=== PATIENT | female | born 1945 | race Caucasian/White ===

== ENCOUNTER → 2016-12-02 | Day surgery (SDC) | payer OTHER ==
[2016-11-27 09:50] VITALS: Ht 170.2 cm; Wt 95.5 kg
[~2016-12-02] VITALS: Ht 170.2 cm; Wt 95.5 kg
[~2016-12-02] MED LIST: ATR25 PO; CALC-393 PO; CALC500C70 PO; CEPH500C PO; CHOL1000 PO; CHOL20009 PO; CLON0.5T3 PO; COEN400C5 PO; GABA-112 PO; LIDOCAINE HCL 2% 2 ML VIAL (20MG/ML) ONE; LPT10 PO; MAGN400T6 PO; MAGN500C PO; MECL1TAB42 PO; MELO7.5T5 PO; MIDAZOLAM HCL 1 MG/ML 2ML VIAL ONE; OMEG100046 PO; OMEG10007 PO; ONDANSETRON INJ 2 MG/ML 2 ML VIAL ONE; PANT40TA PO; POTA1TAB PO; PRAV20TA PO; PREG1CAP36 PO; PRLSR20 PO; PROPOFOL IV EMULSION 10 MG/ML 20 ML VIAL IV ONE; TRAM-10 PO; TRAZ50TA35 PO; VITAMIN B PO
--- NOTE | 2016-12-02 16:02 | Endo History and Physical ---
History & Physical Date of Service: Dec 02, 2016. Chief Complaint: Gastritis Referring Physician: Dr. Pugh History of Present Illness 71 yo CF who presents for EGD secondary to gastritis. Past Medical History Arthritis, Reflux, PR Past Surgical History Hx Cardiac Surgery: No Hx Internal Defibrillator: No Hx Pacemaker: No Hx Abdominal Surgery: Yes (TUBAL LIGATION) Hx of Implantable Prosthesis: No Hx Post-Op Nausea and Vomiting: No Hx Cancer Surgery: No Hx Thoracic Surgery: No Hx Orthopedic: No Hx Urinary Tract Surgery: No Family History Colon CA, Polyp Social History Smoking Status: Former Smoker Hx Substance Use: No Hx Alcohol Use: No Allergies Coded Allergies: Codeine (Verified Allergy, Unknown, RASH, 11/27/16) Morphine (Verified Allergy, Unknown, UNSURE OF REACTION, 11/27/16) Statins (Verified Allergy, Unknown, MUSCLE ACHES, 12/02/16) Sulfa Antibiotics (Verified Allergy, Unknown, HIVES, 11/27/16) Wasp (Verified Allergy, Unknown, HIVES, 11/27/16) WASP AND HORNETS Current Medications Reported Home Medications Medications Dose Route/Sig Max Daily Dose Days Date Category Klonopin (Clonazepam) 0.5 Mg Tab 0.5 Mg PO HS PRN 11/27/16 Reported Trazodone (Trazodone HCl) 50 Mg Tab 50 Mg PO HS PRN 11/27/16 Reported Ultram (Tramadol HCl) 50 Mg Tab 50 Mg PO Q8H PRN 11/27/16 Reported Mobic (Meloxicam) 7.5 Mg Tab 7.5 Mg PO HS 11/27/16 Reported Prilosec (Omeprazole) 20 Mg Capcr 20 Mg PO BID 11/27/16 Reported Coq10 (Coenzyme Q10 (Ubidecarenone)) 400 Mg Cap 1 Cap PO HS 11/27/16 Reported Vitamin D (Cholecalciferol) 2,000 Unit Tab 1 Tab PO HS 11/27/16 Reported Os-Bernardo 500 Plus D (Calcium/Vitamin D) Tab 1 Tab PO HS 11/27/16 Reported [place]-3 (Fish Oil) 1 Ea Cap 1 Cap PO HS 11/27/16 Reported [Vitamin B] 100 Mg PO QAM 11/27/16 Reported Mag-Ox (Magnesium Oxide) 400 Mg Tab 400 Mg PO BID 11/27/16 Reported Pravachol (Pravastatin Sodium) 20 Mg Tab 20 Mg PO QAM 11/27/16 Reported Potassium Gluconate 595 Mg Tab 1 Tab PO QAM 10/03/15 Reported Vital Signs Weight (Kilograms): 95.45 Height (Feet): 5 Height (Inches): 7 Date Time Temp Pulse Resp B/P Pulse Ox O2 Delivery O2 Flow Rate FiO2 12/02/16 15:10 36.5 72 20 171/91 98 Room Air Physical Exam General Appearance: WD/WN, no apparent distress Respiratory/Chest: Auscultation: breath sounds normal Cardiovascular: Heart Auscultation: RRR Abdomen: Bowel Sounds: normal Inspection & Palpation: soft, non-distended, no tenderness, guarding & rebound Assessment and Plan Assessment: 71 yo CF who presents for EGD secondary to gastritis. Plan: Proceed with EGD.
--- NOTE | 2016-12-02 16:11 | Discharge Instructions ---
Endoscopy Patient Instructions Date / Procedure(s) Performed Dec 02, 2016. EGD Allergy Information Coded Allergies: Codeine (Verified Allergy, Unknown, RASH, 11/27/16) Morphine (Verified Allergy, Unknown, UNSURE OF REACTION, 11/27/16) Statins (Verified Allergy, Unknown, MUSCLE ACHES, 12/02/16) Sulfa Antibiotics (Verified Allergy, Unknown, HIVES, 11/27/16) Wasp (Verified Allergy, Unknown, HIVES, 11/27/16) WASP AND HORNETS Discharge Date / Findings Dec 02, 2016. Gastritis s/p biopsies Gastric polyps Hiatal hernia Medication Instructions OK to resume all medications today as prescribed. Reported Home Medications Medications Dose Route/Sig Max Daily Dose Days Date Category Klonopin (Clonazepam) 0.5 Mg Tab 0.5 Mg PO HS PRN 11/27/16 Reported Trazodone (Trazodone HCl) 50 Mg Tab 50 Mg PO HS PRN 11/27/16 Reported Ultram (Tramadol HCl) 50 Mg Tab 50 Mg PO Q8H PRN 11/27/16 Reported Mobic (Meloxicam) 7.5 Mg Tab 7.5 Mg PO HS 11/27/16 Reported Prilosec (Omeprazole) 20 Mg Capcr 20 Mg PO BID 11/27/16 Reported Coq10 (Coenzyme Q10 (Ubidecarenone)) 400 Mg Cap 1 Cap PO HS 11/27/16 Reported Vitamin D (Cholecalciferol) 2,000 Unit Tab 1 Tab PO HS 11/27/16 Reported Os-Bernardo 500 Plus D (Calcium/Vitamin D) Tab 1 Tab PO HS 11/27/16 Reported [place]-3 (Fish Oil) 1 Ea Cap 1 Cap PO HS 11/27/16 Reported [Vitamin B] 100 Mg PO QAM 11/27/16 Reported Mag-Ox (Magnesium Oxide) 400 Mg Tab 400 Mg PO BID 11/27/16 Reported Pravachol (Pravastatin Sodium) 20 Mg Tab 20 Mg PO QAM 11/27/16 Reported Potassium Gluconate 595 Mg Tab 1 Tab PO QAM 10/03/15 Reported Provider Instructions Activity Restrictions - No exercising or heavy lifting for 24 hours. - Do not drink alcohol the day of the procedure. - Do not drive a car or operate machinery until the day after the procedure. - Do not make any important decisions or sign important papers in 24 hours after the procedure. Following Day: - Return to full activity which may include returning to work/school. Diet Start your diet with liquids and light foods (jello, soup, juice, toast). Then eat your usual diet if not nauseated. Treatment For Common After Affects For mild abdominal pain, bloating, or excessive gas: - Rest - Eat lightly - Lie on right side Follow-Up Information Follow-up with Dr. Pugh as scheduled Anesthesia Information What You Should Know You have had a procedure that required some medicine to reduce anxiety and discomfort. This treatment is called moderate sedation. After receiving the treatment, you may be sleepy, but you will be able to breathe on your own. The effects of the treatment may last for several hours. Follow these instructions along with Activity/Diet recommendations noted above: * Do NOT do anything where dizziness or clumsiness would be dangerous. * Rest quietly at home today, then you can be up and about tomorrow. * Have a responsible person stay with you the rest of today. * You may have had an I.V. today. If so, you may take the dressing off later today. Recommendations Call your doctor if: * Trouble breathing * Continuous vomiting for more than 24 hours * Temperature above 101 degrees * Severe abdominal pain or bloating * Pain not relieved by pain medicine ordered * There is increased drainage or redness from any incision * A large amount of rectal bleeding greater than 2-3 tablespoons. (If you had a polyp/s removed or have hemorrhoids, a small amount of blood - from the rectum is to be expected.) * You have any unanswered questions or concerns. IN THE EVENT OF A SERIOUS EMERGENCY, GO TO THE NEAREST EMERGENCY ROOM Your discharge instructions were prepared by provider Liu Serrano. Patient Instructions Signature Page Gilson Hagan Patient (or Guardian) Signature/Date: I have read and understand the instructions given to me by my caregivers. Caregiver/RN/Doctor Signature/Date: The above-named patient and/or guardian has received patient instructions on this date. + Original Patient Signature Page (only) stays with chart. Please make copy for patient.
--- NOTE | 2016-12-02 16:14 | GI REPORT ---
Procedure Date: 12/02/2016 3:44 PM Procedure: Upper GI endoscopy Indications: Follow-up of gastritis Medicines: Monitored Anesthesia Care Complications: No immediate complications. Estimated Blood Loss: Estimated blood loss: none. Procedure: Pre-Anesthesia Assessment: - Prior to the procedure, a History and Physical was performed, and patient medications and allergies were reviewed. The patient's tolerance of previous anesthesia was also reviewed. The risks and benefits of the procedure and the sedation options and risks were discussed with the patient. All questions were answered, and informed consent was obtained. Prior Anticoagulants: The patient has taken no previous anticoagulant or antiplatelet agents. ASA Grade Assessment: III - A patient with severe systemic disease. After reviewing the risks and benefits, the patient was deemed in satisfactory condition to undergo the procedure. After obtaining informed consent, the endoscope was passed under direct vision. Throughout the procedure, the patient's blood pressure, pulse, and oxygen saturations were monitored continuously. The scope was introduced through the mouth, and advanced to the second part of duodenum. The upper GI endoscopy was accomplished without difficulty. The patient tolerated the procedure well. Findings: The esophagus was normal. A small hiatus hernia was present. Multiple 3 to 8 mm sessile polyps with no stigmata of recent bleeding were found in the gastric fundus. Localized moderate inflammation characterized by erythema was found in the gastric antrum. Biopsies were taken with a cold forceps for histology. The examined duodenum was normal. Impression: - Normal esophagus. - Small hiatus hernia. - Multiple gastric polyps. - Gastritis. Biopsied. - Normal examined duodenum. Recommendation: - Resume previous diet. - Continue present medications. - Await pathology results. - Return to GI office as previously scheduled. - Consider RUQ US and HIDA with CCK for further evaluation of gall bladder. Liu Serrano, DO 12/02/2016 4:13:58 PM This report has been signed electronically. Note Initiated On: 12/02/2016 3:44 PM I attest to the content of the Intraoperative Record and orders documented therein, exceptions below
[2016-12-02 16:48] VITALS: BP 130/74; PULSE 68; O2SAT 96
--- NOTE | 2016-12-02 17:11 | Anesthesiology Progress Note ---
Anesthesia Post Op Note Date & Time Dec 02, 2016 at 17:11 Vital Signs Pain Intensity: 0 Vital Signs Past 12 Hours Date Time Temp Pulse Resp B/P Pulse Ox O2 Delivery O2 Flow Rate FiO2 12/02/16 16:48 68 20 130/74 96 Room Air 12/02/16 16:33 67 20 121/77 96 Room Air 12/02/16 16:18 36.5 80 20 126/76 94 Room Air 12/02/16 15:10 36.5 72 20 171/91 98 Room Air Notes Mental Status: alert / awake / arousable, participated in evaluation Pt Amnestic to Procedure: Yes Nausea / Vomiting: adequately controlled Pain: adequately controlled Airway Patency, RR, SpO2: stable & adequate BP & HR: stable & adequate Hydration State: stable & adequate Anesthetic Complications: no major complications apparent
== END | disposition home or self-care (01) ==
LOC: C.GI 14:55
PROVIDERS: ATTEND Internal Medicine
DX: K29.70 Gastritis, unspecified, without bleeding (principal); K44.9 Diaphragmatic hernia without obstruction or gangrene; K31.7 Polyp of stomach and duodenum; I25.2 Old myocardial infarction; F41.9 Anxiety disorder, unspecified; E66.9 Obesity, unspecified; Z88.5 Allergy status to narcotic agent; Z88.2 Allergy status to sulfonamides; Z98.51 Tubal ligation status; Z68.33 Body mass index [BMI] 33.0-33.9, adult; Z87.891 Personal history of nicotine dependence; Z85.828 Personal history of other malignant neoplasm of skin; Z80.0 Family history of malignant neoplasm of digestive organs

== ENCOUNTER → 2016-12-23 | Outpatient (CLI) | payer OTHER ==
[~2016-12-23] MED LIST changes: -LIDOCAINE HCL 2% 2 ML VIAL (20MG/ML) ONE; -MIDAZOLAM HCL 1 MG/ML 2ML VIAL ONE; -ONDANSETRON INJ 2 MG/ML 2 ML VIAL ONE; -PROPOFOL IV EMULSION 10 MG/ML 20 ML VIAL IV ONE
--- NOTE | 2016-12-23 09:35 | DIAGNOSTIC IMAGING REPORT ---
ABDOMINAL ULTRASOUND, RIGHT UPPER QUADRANT HISTORY: R10.11 Abdominal pain, RUQ (right upper quadrant)[id number]. COMPARISON: None. FINDINGS: Pancreas: Not well seen due to overlying bowel gas. Liver: The liver is echogenic consistent with fatty change. Gallbladder: No gallbladder wall thickening. No gallstones. CBD: 5 mm. Right kidney: No hydronephrosis. IMPRESSION: 1. No gallbladder wall thickening. No gallstones. 2. Hepatic steatosis. 3. The pancreas was not well visualized. Electronically signed by: Vincenzo Snyder M.D. 12/23/2016 9:33 AM Dictated Date/Time: 12/23/2016 9:32 AM
== END | disposition home or self-care (01) ==
LOC: C.ULTR 08:55
PROVIDERS: ATTEND Internal Medicine
DX: R10.11 Right upper quadrant pain (principal); K76.0 Fatty (change of) liver, not elsewhere classified

== ENCOUNTER → 2016-12-26 | Outpatient (CLI) | payer OTHER ==
[~2016-12-26] MED LIST changes: +SINCALIDE INJ 1.9 MCG in SODIUM CHLORIDE 0.9% 100ML 100 ML IV ONE
--- NOTE | 2016-12-26 11:20 | DIAGNOSTIC IMAGING REPORT ---
NUCLEAR MEDICINE HEPATOBILIARY SCAN WITH EJECTION FRACTION HISTORY: R10.11 Abdominal pain, RUQ (right upper quadrant)[id number] COMPARISON: Abdominal ultrasound 12/23/2016. TECHNIQUE: Immediately following the intravenous administration of 5.5 mCi Tc-99m Choletec, dynamic anterior abdominal imaging pre/post 1.9 mcg of Kinevac was performed. FINDINGS: Uniform hepatic tracer accumulation is shown. Prompt intrahepatic biliary excretion is seen. The gallbladder, common bile duct, and small bowel are all visualized by 30 minutes. This appearance represents the normal sequence of biliary excretion. The gall bladder ejection fraction following administration of Kinevac was 51% (normal >35%). IMPRESSION: 1. No evidence for cystic duct obstruction. 2. Gallbladder ejection fraction calculated to be 51 %. Electronically signed by: Vincenzo Snyder M.D. 12/26/2016 11:19 AM Dictated Date/Time: 12/26/2016 11:19 AM
== END | disposition home or self-care (01) ==
LOC: C.NUCL 08:28
PROVIDERS: ATTEND Internal Medicine
DX: R10.11 Right upper quadrant pain (principal)

== ENCOUNTER → 2017-01-31 | Outpatient (CLI) | payer OTHER ==
[~2017-01-31] MED LIST changes: -SINCALIDE INJ 1.9 MCG in SODIUM CHLORIDE 0.9% 100ML 100 ML IV ONE
== END | disposition home or self-care (01) ==
LOC: C.PAPS 10:09
PROVIDERS: ATTEND Obstetrics & Gynecology
DX: Z12.4 Encounter for screening for malignant neoplasm of cervix (principal)

== ENCOUNTER → 2017-02-06 | Outpatient (CLI) | payer OTHER ==
[2017-02-06 13:08] LABS: CALCIUM 9.1 mg/dl (8.5-10.1)
[2017-02-06 13:15] LABS: ALT/SGPT 26 U/L (12-78); BLOOD UREA NITROGEN 10 mg/dl (7-18); CARBON DIOXIDE 26 mmol/L (21-32); CHLORIDE 108 mmol/L (98-107); CHOLESTEROL 196 mg/dl (0-200); CREATININE 0.94 mg/dl (0.60-1.20); GLUCOSE 99 mg/dl (70-99); SODIUM 142 mmol/L (136-145); TRIGLYCERIDES 171 mg/dl (0-150); VERY LOW DENSITY LIPOPROT CALC 34 mg/dl
[2017-02-06 13:18] LABS: ALB/GLOB RATIO 0.9 (0.9-2); ALKALINE PHOSPHATASE 61 U/L (45-117); AST/SGOT 13 U/L (15-37); HDL CHOLESTEROL 66 mg/dl; LDL CHOLESTEROL CALCULATED 96 mg/dl
== END | disposition home or self-care (01) ==
LOC: C.LABPVFM 08:02
PROVIDERS: ATTEND Family Medicine
DX: E78.2 Mixed hyperlipidemia (principal); K21.0 Gastro-esophageal reflux disease with esophagitis; M19.90 Unspecified osteoarthritis, unspecified site; R73.01 Impaired fasting glucose

== ENCOUNTER 2017-03-05 19:02 | Emergency (ER) | payer OTHER ==
[~2017-03-05] VITALS: Ht 170.2 cm; Wt 97.8 kg
[~2017-03-05 19:02] MED LIST changes: -ATR25 PO; -CALC-393 PO; -CEPH500C PO; -CHOL1000 PO; -GABA-112 PO; -LPT10 PO; -MAGN500C PO; -MECL1TAB42 PO; -OMEG100046 PO; -PANT40TA PO; -PREG1CAP36 PO
[2017-03-05 19:20] VITALS: TEMP 36.4; Ht 170.2 cm; Wt 97.8 kg
[2017-03-05] MEDS ORDERED: KETOROLAC TROMETHAMINE 30 MG/ML VIAL IV STA (19:49)
[2017-03-05 19:55] LABS: BASO % 0.3 %; BASO ABS # 0.03 K/uL (0-0.2); COMPLETE YES; EOS % 2.2 %; HEMATOCRIT 39.3 % (37-47); IG% 0.2 %; LYMPH % 41.7 %; LYMPH ABS # 3.67 K/uL (1.2-3.4); MEAN CELL VOLUME 89.9 fL (80-100); MEAN CORPUSCULAR HEMOGLOBIN 30.4 pg (25-34); MEAN CORPUSCULAR HGB CONC 33.8 g/dl (32-36); MEAN PLATELET VOLUME 9.3 fL (7.4-10.4); MONO % 9.2 %; NEUT % 46.4 %; PLATELET COUNT 414 K/uL (130-400); RED BLOOD COUNT 4.37 M/uL (4.2-5.4)
[2017-03-05] MEDS ORDERED: LPT10 PO (20:06)
[2017-03-05] MEDS ORDERED: CALC-393 PO (20:06)
[2017-03-05] MEDS ORDERED: MELO7.5T5 PO (20:12)
[2017-03-05] MEDS ORDERED: TRAM-10 PO (20:12)
[2017-03-05] MEDS ORDERED: OMEG100046 PO (20:12)
[2017-03-05] MEDS ORDERED: MECL1TAB42 PO (20:12)
[2017-03-05] MEDS ORDERED: POTA1TAB PO (20:12)
[2017-03-05] MEDS ORDERED: CHOL1000 PO (20:12)
[2017-03-05] MEDS ORDERED: ATR25 PO (20:12)
[2017-03-05] MEDS ORDERED: MAGN500C PO (20:12)
[2017-03-05] MEDS ORDERED: GABA-112 PO (20:12)
[2017-03-05] MEDS ORDERED: PREG1CAP36 PO (20:12)
[2017-03-05] MEDS ORDERED: PANT40TA PO (20:12)
[2017-03-05 20:24] LABS: POTASSIUM 3.9 mmol/L (3.5-5.1)
[2017-03-05 20:27] LABS: CALCIUM 8.8 mg/dl (8.5-10.1)
--- NOTE | 2017-03-05 20:50 | DIAGNOSTIC IMAGING REPORT ---
CT HEAD WITHOUT CONTRAST (CT) CLINICAL HISTORY: Severe headache COMPARISON STUDY: 10/03/2015 TECHNIQUE: Axial CT of the brain is performed from the vertex to the skull base. IV contrast was not administered for this examination. CT DOSE: 537.48 mGy.cm FINDINGS: No intra or extra-axial mass lesions are visualized. There is no CT evidence of acute cortical infarction. There is no evidence of midline shift. There is no acute hemorrhage. No calvarial fractures are visualized. There are minor white matter hypodensities likely on a small vessel basis. There is no evidence of pathologic ventricular dilatation. There is no evidence of acute sinusitis IMPRESSION: No acute intracranial findings Electronically signed by: José Cervantes M.D. 03/05/2017 8:49 PM Dictated Date/Time: 03/05/2017 8:48 PM
[2017-03-05 21:45] VITALS: BP 132/76; PULSE 72; O2SAT 96
--- NOTE | 2017-03-05 23:33 | EMERGENCY ROOM VISIT NOTE ---
History Report prepared by Catherine: Francheska Costa Under the Supervision of: Dr. Patrick Flores D.O. First contact with patient: 19:34 Chief Complaint: HEAD PAIN Stated Complaint: LEFT SIDE HEAD PAIN History of Present Illness The patient is a 71 year old female who presents to the Emergency Room with complaints of intermittent left sided head pain beginning 5 hours ago. The patient states that this does not feel like a headache and feels more like a sharp and cramping contraction that comes and goes about every 10 minutes. She notes that over the last few years this has happened intermittently but not often. She notes that the pain is between her neck and left side of her head but is mostly behind her left ear. Pt denies change in vision, abdominal pain, fevers, chest pain, shortness of breath, nausea, vomiting, diarrhea. Source of History: patient Onset: 5 hours ago Position: head Quality: sharp, other (cramping contraction) Timing: intermittent Associated Symptoms: + neck pain, No SOB, No abdominal pain, No chest pain, No diarrhea, No fevers, No nausea, No vomiting Note: Pt denies change in vision. Review of Systems See HPI for pertinent positives & negatives. A total of 10 systems reviewed and were otherwise negative. Past Medical & Surgical Medical Problems: (1) Broken neck (2) Broken nose (3) chest pain rule out ACS (4) Vertigo Family History Cancer Heart disease Social History Smoking Status: Never Smoker Alcohol Use: none Drug Use: none Marital Status: Housing Status: lives alone Occupation Status: retired Current/Historical Medications Scheduled Atorvastatin (Atorvastatin Calcium), 10 MG PO DAILY Calcium Carbonate (Calcium), 600 MG PO DAILY Cholecalciferol (Vitamin D3), 1,000 MG PO DAILY Gabapentin (Neurontin), 100 MG PO QAM Hydroxyzine HCl (Hydroxyzine HCl), 25-50 MG PO HS Magnesium Oxide (Mg Supplement (Magnesium), 500 MG PO AMPM Meloxicam (Mobic), 7.5 MG PO DAILY [place]-3 Fatty Acids ([place] 3), 1 CAP PO PM Pantoprazole (Protonix), 40 MG PO BID Potassium Gluconate (Potassium Gluconate), 595 MG PO DAILY Pregabalin (Lyrica), 25 MG PO BID Scheduled PRN Meclizine Hcl (Meclizine Hcl), 25 MG PO TID PRN for DIZZINESS Tramadol (Ultram), 50 MG PO Q8H PRN for Pain Allergies Coded Allergies: Codeine (Verified Allergy, Unknown, RASH, 03/05/17) Morphine (Verified Allergy, Unknown, UNSURE OF REACTION, 03/05/17) Statins (Verified Allergy, Unknown, MUSCLE ACHES, 03/05/17) Sulfa Antibiotics (Verified Allergy, Unknown, HIVES, 03/05/17) Wasp (Verified Allergy, Unknown, HIVES, 03/05/17) WASP AND HORNETS Physical Exam Vital Signs Date Time Temp Pulse Resp B/P Pulse Ox O2 Delivery O2 Flow Rate FiO2 03/05/17 21:45 72 18 132/76 96 Room Air 03/05/17 20:26 78 16 144/86 95 Room Air 03/05/17 19:20 36.4 90 18 152/96 96 Room Air Physical Exam GENERAL: alert, sitting up in bed, well appearing, well nourished, no distress, non-toxic EYE EXAM: normal conjunctiva, PERRL and EOM's grossly intact OROPHARYNX: no exudate, no erythema, lips, buccal mucosa, and tongue normal and mucous membranes are moist NECK: supple, no nuchal rigidity, no adenopathy, non-tender, negative Brudzinski LUNGS: Clear to auscultation. Normal chest wall mechanics HEART: no murmurs, S1 normal and S2 normal ABDOMEN: abdomen soft, non-tender, normo-active bowel sounds, no masses, no rebound or guarding. BACK: Back is symmetrical on inspection and there is no deformity, no midline tenderness, no CVA tenderness. SKIN: no rashes and no bruising UPPER EXTREMITIES: upper extremities are grossly normal. LOWER EXTREMITIES: No pitting edema. NEURO EXAM: Normal sensorium, cranial nerves II-XII intact, normal speech, no weakness of arms, no weakness of legs. No drift. Finger to nose intact. Gross sensation intact. Medical Decision & Procedures ER Provider Diagnostic Interpretation: Radiology results as stated below per my review and the radiologist's interpretation: CT HEAD WITHOUT CONTRAST (CT) FINDINGS: No intra or extra-axial mass lesions are visualized. There is no CT evidence of acute cortical infarction. There is no evidence of midline shift. There is no acute hemorrhage. No calvarial fractures are visualized. There are minor white matter hypodensities likely on a small vessel basis. There is no evidence of pathologic ventricular dilatation. There is no evidence of acute sinusitis IMPRESSION: No acute intracranial findings Electronically signed by: José Cervantes M.D. 03/05/2017 8:49 PM Dictated Date/Time: 03/05/2017 8:48 PM Laboratory Results 03/05/17 19:40 Red Blood Count 4.37, Mean Corpuscular Volume 89.9, Mean Corpuscular Hemoglobin 30.4, Mean Corpuscular Hemoglobin Concent 33.8, Mean Platelet Volume 9.3, Neutrophils (%) (Auto) 46.4, Lymphocytes (%) (Auto) 41.7, Monocytes (%) (Auto) 9.2, Eosinophils (%) (Auto) 2.2, Basophils (%) (Auto) 0.3, Neutrophils # (Auto) 4.08, Lymphocytes # (Auto) 3.67, Monocytes # (Auto) 0.81, Eosinophils # (Auto) 0.19, Basophils # (Auto) 0.03 03/05/17 19:40 Test 03/05/17 19:40 White Blood Count 8.80 K/uL (4.8-10.8) Red Blood Count 4.37 M/uL (4.2-5.4) Hemoglobin 13.3 g/dL (12.0-16.0) Hematocrit 39.3 % (37-47) Mean Corpuscular Volume 89.9 fL (80-100) Mean Corpuscular Hemoglobin 30.4 pg (25-34) Mean Corpuscular Hemoglobin Concent 33.8 g/dl (32-36) Platelet Count 414 K/uL (130-400) Mean Platelet Volume 9.3 fL (7.4-10.4) Neutrophils (%) (Auto) 46.4 % Lymphocytes (%) (Auto) 41.7 % Monocytes (%) (Auto) 9.2 % Eosinophils (%) (Auto) 2.2 % Basophils (%) (Auto) 0.3 % Neutrophils # (Auto) 4.08 K/uL (1.4-6.5) Lymphocytes # (Auto) 3.67 K/uL (1.2-3.4) Monocytes # (Auto) 0.81 K/uL (0.11-0.59) Eosinophils # (Auto) 0.19 K/uL (0-0.5) Basophils # (Auto) 0.03 K/uL (0-0.2) RDW Standard Deviation 44.5 fL (36.4-46.3) RDW Coefficient of Variation 13.4 % (11.5-14.5) Immature Granulocyte % (Auto) 0.2 % Immature Granulocyte # (Auto) 0.02 K/uL (0.00-0.02) Anion Gap 6.0 mmol/L (3-11) Est Creatinine Clear Calc Drug Dose 61.1 ml/min Estimated GFR () 65.2 Estimated GFR (Non- 56.2 BUN/Creatinine Ratio 11.0 (10-20) Calcium Level 8.8 mg/dl (8.5-10.1) Laboratory results per my review. Medications Administered Medications (Trade) Dose Ordered Sig/Brett Route Start Time Stop Time Status Last Admin Dose Admin Ketorolac Tromethamine (Toradol Inj) 15 mg NOW STAT IV 03/05/17 19:49 03/05/17 19:51 DC 03/05/17 20:10 15 MG ED Course ED COURSE: Vital signs were reviewed and showed hypertension The patients medical record was reviewed The above diagnostic studies were performed and reviewed. ED treatments and interventions as stated above. 1938: The patient was evaluated in room C7. A complete history and physical examination was performed. 1948: Toradol Inj 15mg IV. 2135: I reevaluated the patient. Her pain was significantly improved with Toradol. 2148: Upon reevaluation, the patient is doing well.I discussed my findings with the patient and she understands and agrees with the treatment plan. Based on the patients age, coexisting illnesses, exam and lab findings the decision to treat as an outpatient was made. The patient remained stable while under my care. The patient appeared well at the time of discharge. Medical Decision Differential Diagnosis includes but is not limited to headache, tension headache , cluster headache, migraine, subarachnoid hemorrhage, meningitis, mass, central venous thrombus, concussion, trauma and epidural/subdural hemorrhage. Medication Reconciliation: I attest that I have personally reviewed the patient' s current medication list. Blood pressure screening: Patient was found to have an elevated blood pressure and was referred to their primary doctor for recheck and further treatment. Patient is a 71-year-old female who presents the ER for left-sided headache sharp and stabbing comes and goes. It starts at the base her occiput. It is fairly sporadic throughout the day. Patient has enough for the pain. She is completely neurologically intact. No pain currently. She was given a small dose of Toradol and had improvement of her pain when it did occur. CBC and BMP were unremarkable. No tenderness over the temporal arteries. No change in vision. Again completely neurologically intact and following a negative CT she was discharged with a headache/cephalgia with questionable occipital neuralgia. Discussed with Pt concerning signs and symptoms to watch out for. Pt was instructed to follow up with their PCP and discussed with the patient their option to return to the ED at anytime for persistent or worsening symptoms. The appropriate anticipatory guidance and out-patient management, including indications for return to the emergency department, were explained at length to the patient and understood. Impression Primary Impression: Headache Scribe Attestation The scribe's documentation has been prepared under my direction and personally reviewed by me in its entirety. I confirm that the note above accurately reflects all work, treatment, procedures, and medical decision making performed by me. Departure Information Dispostion Home / Self-Care Referrals Filipe Pugh M.D. (PCP) Forms HOME CARE DOCUMENTATION FORM, IMPORTANT VISIT INFORMATION, WORK / SCHOOL INSTRUCTIONS Patient Instructions Headache Pain, My [facility] Additional Instructions Please follow up with your primary care doctor with in the next 24 hours. Any worsening of your symptoms, please return to the ED immediately. This includes worsening headaches, change in vision, weakness or numbness in arms or legs, confusion or any other concerning signs or symptoms from your standpoint. Please take Motrin or Tylenol as needed for pain. Problem Qualifiers Primary Impression: Headache Headache type: unspecified Headache chronicity pattern: acute headache Intractability: not intractable Qualified Codes: R51 - Headache
[2017-06-24] MEDS ORDERED: TRAM-10 PO (07:16)
== END 2017-03-05 21:48 | disposition home or self-care (01) ==
LOC: C.EDB 19:03 → C.EDC 21:48
DX: R51 Headache (principal); Z80.9 Family history of malignant neoplasm, unspecified; Z82.49 Family history of ischemic heart disease and other diseases of the circulatory system; Z79.899 Other long term (current) drug therapy

== ENCOUNTER → 2017-06-24 | Day surgery (SDC) | payer OTHER ==
[2017-06-03 13:24] VITALS: Ht 170.2 cm; Wt 97.7 kg
[~2017-06-24] VITALS: Ht 170.2 cm; Wt 97.7 kg
[~2017-06-24] MED LIST changes: +ATR25 PO; +ATROPINE SULFATE 0.1 MG/ML 5ML SYR IV PRN; +BUPIVACAINE 0.5 % 5 MG/1 ML MPF 30ML VIAL ONE; +CALC-393 PO; -CALC500C70 PO; +CEFAZOLIN 2000 MG/60 ML D5W IV SCH; +CEPH500C PO; -CHOL20009 PO; -CLON0.5T3 PO; -COEN400C5 PO; +EpHEDrine SULFATE INJ 50 MG/ML AMP IV PRN; +FENTANYL CITRATE INJ 50 MCG/1 ML 2 ML VIAL IV PRN; +FENTANYL CITRATE INJ 50 MCG/1 ML 2 ML VIAL ONE; +GABA-112 PO; +LACTATED RINGER'S 1000ML 1,000 ML IV SCH; +LIDOCAINE HCL 1% 20 ML VIAL ONE; +LIDOCAINE HCL 2% 2 ML VIAL (20MG/ML) ONE; +LPT10 PO; -MAGN400T6 PO; +MAGN500C PO; +MECL1TAB42 PO; -OMEG10007 PO; +ONDANSETRON INJ 2 MG/ML 2 ML VIAL IV PRN; +PANT40TA PO; -PRAV20TA PO; -PRLSR20 PO; +PROPOFOL IV EMULSION 10 MG/ML 20 ML VIAL IV ONE; +SODIUM CHLORIDE 0.9% 1000ML 1,000 ML IV SCH; +TRAMADOL HCL 50 MG TAB PO PRN; -TRAZ50TA35 PO; -VITAMIN B PO
--- NOTE | 2017-06-24 06:50 | History & Physical Bridge - [place] ---
H&P Re-Evaluation Bridge Note: I have examined the patient, reviewed the History & Physical and in the interval since the performance of the History & Physical I have noted the following changes of clinical significance: No changes noted
[2017-06-24 07:14] VITALS: TEMP 37
--- NOTE | 2017-06-24 07:17 | Discharge Instructions-[facility]urgCtr ---
Discharge Instructions Date of Service Jun 24, 2017. Visit Reason for Visit: Left Carpal Tunnel Syndrome Discharge Discharge Diagnosis / Problem: SAME ABOVE Discharge Goals Goal(s): Decrease discomfort, Improve function Activity Recommendations Activity Limitations: as noted below Lifting Limitations: until after follow-up appointment Exercise/Sports Limitations: until after follow-up appointment Shower/Bathe: keep incision dry Anesthesia . Post Anesthesia Instructions: If you have had General Anesthesia or IV Sedation: * Do not drive today. * Resume driving when surgeon permits. * Do not make important decisions or sign legal documents today. * Call surgeon for: 1. Temperature elevations greater than 101 degrees F. 2. Uncontrollable pain. 3. Excessive bleeding. 4. Persistent nausea and vomiting. 5. Medication intolerance (nausea, vomiting or rash). * For nausea and vomiting use only clear liquids such as: tea, soda, bouillon until nausea subsides, then gradually increase diet as tolerated. * If you have any concerns or questions, call your surgeon's office. If physician is unavailable and it is an emergency, call 911 or go to the nearest emergency room. . Instructions / Follow-Up Instructions / Follow-Up MEDICATIONS: * Resume previous medications unless instructed otherwise by your surgeon. * Always take pain medication on a full stomach or with food to avoid upset stomach. * Do not drink alcohol or drive while taking narcotics. * Ibuprofen or Tylenol may be taken if narcotic not needed. SPECIAL CARE INSTRUCTIONS: __ None _X_ Keep extremity elevated and iced x 48 hours; apply ice 20-30 minutes 8-10 times/day. May remove at night. __ Sling __24 hrs/day __ Remove at night __ Shoulder Immobilizer __ 24 hrs/day __ Remove at night _X_ Dressing _X_ Maintain until seen in office, may shower with plastic over site __ Remove dressings in 24-48 hours and then may shower __ Cover incisions with band-aids after showering __ Do not remove steri-strips Call physician if chills or temperature rises above 102 degrees or pain unrelieved by prescribed pain medications at . . Diet Recommendations Home Diet: resume previous diet Procedures Procedures Performed: Left Carpal Tunnel Release Pending Studies Studies pending at discharge: no Medical Emergencies . Who to Call and When: Medical Emergencies: If at any time you feel your situation is an emergency, please call 911 immediately. . Non-Emergent Contact Non-Emergency issues call your: Primary Care Provider . . "Provider Documentation" section prepared by Tulio Islas. .
--- NOTE | 2017-06-24 07:18 | Anesthesia Progress Nt - [facility] ---
Anesthesia Post Op Note Date & Time Jun 24, 2017 at 07:18 Vital Signs Pain Intensity: 4 Vital Signs Past 12 Hours Date Time Temp Pulse Resp B/P (MAP) Pulse Ox O2 Delivery O2 Flow Rate FiO2 06/24/17 06:28 36.7 70 22 150/103 (119) 98 Room Air Notes Mental Status: alert / awake / arousable, participated in evaluation Pt Amnestic to Procedure: Yes Nausea / Vomiting: adequately controlled Pain: adequately controlled Airway Patency, RR, SpO2: stable & adequate BP & HR: stable & adequate Hydration State: stable & adequate Anesthetic Complications: no major complications apparent
[2017-06-24 07:37] VITALS: BP 145/87; PULSE 70; O2SAT 95
--- NOTE | 2017-06-24 08:35 | [facility] Post Operative Brief Note ---
Immediate Operative Summary Operative Date Jun 24, 2017. Pre-Operative Diagnosis Left Carpal Tunnel Syndrome Post-Operative Diagnosis Same Procedure(s) Performed Left Carpal Tunnel Release Surgeon Dr. Busch Packaging Manager Surgeon(s) Aly Islas PA-C Estimated Blood Loss None Findings ABOVE Specimens None Anesthesia LOCAL IV SEDATION Complication(s) None Disposition
--- NOTE | 2017-06-24 11:40 | OPERATIVE REPORT ---
DATE OF OPERATION: 06/24/2017 PREOPERATIVE DIAGNOSIS: Left carpal tunnel syndrome. POSTOPERATIVE DIAGNOSIS: Same. PROCEDURE: Decompression of median nerve and release of transverse carpal ligament, left wrist. SURGEON: Dr. Hugo Busch. DEVELOPMENT ASSOCIATE: Tulio Islas PA-C. ANESTHESIOLOGIST: Flaco King MD ANESTHESIA: Local with IV sedation. DRAINS: None. COMPLICATIONS: None. CONDITION: The patient tolerated the procedure well and returned to the recovery room in apparent satisfactory condition. INDICATIONS FOR SURGERY: Gilson is a 72-year-old female with increasing pain, numbness and tingling in her left hand consistent with carpal tunnel syndrome. We went over treatment options and she elected to go ahead and proceed with surgery. The procedure, expected outcomes and side effects were all explained in detail. DESCRIPTION OF PROCEDURE: The patient was taken to the OR at which time, she was placed supine on the operating table. The left hand was prepped and draped in the usual sterile fashion for this surgery. The anticipated incision site was infiltrated with 1% Xylocaine. A forearm tourniquet was placed on the arm and tourniquet was placed up to 250 mmHg. Incision was made vertically over the transverse carpal tunnel ligament. Dissection was done down until the palmar fascia was identified and divided with a 15-blade. The transverse carpal ligament was identified and also divided with the 15-blade and upbiting scissors. A small portion of the forearm fascia was divided also. Electrocautery was used to control any areas of bleeding. The nerve was freed up from any scar tissue and adequately decompressed. The wound then was copiously irrigated. It was closed then with interrupted 4-0 nylon sutures. Marcaine without Epinephrine was placed in the skin edges. It was closed in a layered fashion. We placed a sterile dressing of Xeroform, 4 x 4, volar splint, and an Jacinto bandage. DISPOSITION: The patient was returned back to the recovery room in apparent satisfactory condition. I attest to the content of the Intraoperative Record and any orders documented therein. Any exception s are noted below.
== END | disposition home or self-care (01) ==
LOC: X.SURG 06:14
PROVIDERS: ATTEND Orthopaedic Surgery
DX: G56.02 Carpal tunnel syndrome, left upper limb (principal); I10 Essential (primary) hypertension; K21.9 Gastro-esophageal reflux disease without esophagitis; Z79.899 Other long term (current) drug therapy

== ENCOUNTER 2017-07-02 23:33 | Emergency (ER) | payer OTHER ==
[~2017-07-02] VITALS: Ht 170.2 cm; Wt 99.3 kg
[~2017-07-02 23:33] MED LIST changes: -ATROPINE SULFATE 0.1 MG/ML 5ML SYR IV PRN; -BUPIVACAINE 0.5 % 5 MG/1 ML MPF 30ML VIAL ONE; -CEFAZOLIN 2000 MG/60 ML D5W IV SCH; -CEPH500C PO; -EpHEDrine SULFATE INJ 50 MG/ML AMP IV PRN; -FENTANYL CITRATE INJ 50 MCG/1 ML 2 ML VIAL IV PRN; -FENTANYL CITRATE INJ 50 MCG/1 ML 2 ML VIAL ONE; -LACTATED RINGER'S 1000ML 1,000 ML IV SCH; -LIDOCAINE HCL 1% 20 ML VIAL ONE; -LIDOCAINE HCL 2% 2 ML VIAL (20MG/ML) ONE; -ONDANSETRON INJ 2 MG/ML 2 ML VIAL IV PRN; -PROPOFOL IV EMULSION 10 MG/ML 20 ML VIAL IV ONE; -SODIUM CHLORIDE 0.9% 1000ML 1,000 ML IV SCH; -TRAMADOL HCL 50 MG TAB PO PRN
[2017-07-02 23:35] VITALS: TEMP 36.7; Ht 170.2 cm; Wt 99.3 kg
[2017-07-02] MEDS ORDERED: FENTANYL CITRATE INJ 50 MCG/1 ML 2 ML VIAL IV STA (23:50)
[2017-07-02] MEDS ORDERED: SODIUM CHLORIDE 0.9% 250ML 250 ML IV STA (23:50)
[2017-07-02] MEDS ORDERED: ONDANSETRON INJ 2 MG/ML 2 ML VIAL IV STA (23:50)
[2017-07-02] MEDS ORDERED: SODIUM CHLORIDE 0.9% 1000ML 1,000 ML IV STA (23:50)
--- NOTE | 2017-07-03 00:04 | EMERGENCY ROOM VISIT NOTE ---
History Report prepared by Catherine: Leroy Bledsoe Under the Supervision of: Dr. Laura Roland M.D. First contact with patient: 23:39 Chief Complaint: FLANK PAIN Stated Complaint: PAIN IN SIDE AND BACK History of Present Illness The patient is a 72 year old female who presents to the Emergency Room with complaints of constant, left-sided flank pain beginning 2.5 hours ago. The patient states her discomfort started suddenly, and she felt fine all day. The patient notes she tried heat and cold presses, but they did not help her discomfort. She states lying down intensifies her discomfort. The patient reports she had a bowel movement this morning, and it was normal. She denies fevers, pain upon urination, and blood in her urine. The patient notes she had carpal tunnel surgery 10 days ago. Source of History: patient Onset: 2.5 hours ago Position: other (Left flank) Timing: constant Modifying Factors (Worsening): other (lying down) Associated Symptoms: No fevers, No urinary symptoms (pain with urination and blood in urine) Review of Systems See HPI for pertinent positives & negatives. A total of 10 systems reviewed and were otherwise negative. Past Medical & Surgical Medical Problems: (1) Broken neck (2) Broken nose (3) chest pain rule out ACS (4) Vertigo Family History Cancer Heart disease Social History Smoking Status: Former Smoker Alcohol Use: none Drug Use: none Marital Status: Housing Status: lives alone Occupation Status: retired Current/Historical Medications Scheduled Atorvastatin (Atorvastatin Calcium), 10 MG PO QPM Calcium Carbonate (Calcium), 600 MG PO QPM Cephalexin Monohydrate (Keflex), 500 MG PO QID Gabapentin (Neurontin), 100 MG PO TID Hydroxyzine HCl (Hydroxyzine HCl), 25-50 MG PO HS Magnesium Oxide (Mg Supplement (Magnesium), 500 MG PO AMPM Meloxicam (Mobic), 7.5 MG PO QAM Pantoprazole (Protonix), 40 MG PO BID Potassium Gluconate (Potassium Gluconate), 595 MG PO QAM Scheduled PRN Meclizine Hcl (Meclizine Hcl), 25 MG PO TID PRN for DIZZINESS Tramadol (Ultram), 50 MG PO Q8H PRN for Pain Tramadol (Ultram), 50 MG PO Q4H PRN for Pain Allergies Coded Allergies: Adhesives (Verified Allergy, Intermediate, RASH, 06/24/17) Codeine (Verified Allergy, Unknown, RASH, 06/24/17) Morphine (Verified Allergy, Unknown, UNSURE OF REACTION, 06/24/17) Statins (Verified Allergy, Unknown, MUSCLE ACHES, 06/24/17) Sulfa Antibiotics (Verified Allergy, Unknown, HIVES, 06/24/17) Wasp (Verified Allergy, Unknown, HIVES, 06/24/17) WASP AND HORNETS Physical Exam Vital Signs Date Time Temp Pulse Resp B/P (MAP) Pulse Ox O2 Delivery O2 Flow Rate FiO2 07/03/17 01:40 89 Nasal Cannula 2.0 07/03/17 00:40 75 16 135/109 93 Room Air 07/02/17 23:49 74 07/02/17 23:35 36.7 81 20 162/99 94 Room Air Physical Exam Vital signs reviewed. General: Well-appearing 72 year old female, in no significant distress. HEENT: No scleral icterus, PERRLA, neck supple. Atraumatic. Cardiovascular: Regular rate and rhythm, no extra sounds. Pulmonary: Clear to auscultation bilaterally, normal work of breathing. Abdomen: Soft, nontender, nondistended, positive bowel sounds. Musculoskeletal: Atraumatic, no peripheral edema. No significant CVA tenderness. Neurologic: Patient awake alert and oriented x 3 Skin: Warm, dry, no rash Medical Decision & Procedures ER Provider Diagnostic Interpretation: CT results as stated below per my review and radiologist interpretation: CT ABDOMEN & PELVIS: No renal stones, hydronephrosis or perinephric stranding No evidence of ureteral or bladder stone Proximal LAD coronary calcification Basilar atelectasis Possible mild hepatic steatosis Gallbladder within limits Mild haziness at the root of the mesentery with nonenlarged nodes may be associated with mesenteric adenitis, nonspecific No bowel dilation or free air Normal caliber appendix without secondary signs Ovaries appear within limits on noncontrast imaging No free fluid Radiologist: John Rodriguez MD Study ready at 0041 and initial results transmitted at 0133. Laboratory Results 07/03/17 00:05 Red Blood Count 4.24, Mean Corpuscular Volume 91.0, Mean Corpuscular Hemoglobin 29.5, Mean Corpuscular Hemoglobin Concent 32.4, Mean Platelet Volume 9.4, Neutrophils (%) (Auto) 38.1, Lymphocytes (%) (Auto) 47.0, Monocytes (%) (Auto) 11.0, Eosinophils (%) (Auto) 3.2, Basophils (%) (Auto) 0.5, Neutrophils # (Auto ) 3.35, Lymphocytes # (Auto) 4.13, Monocytes # (Auto) 0.97, Eosinophils # (Auto ) 0.28, Basophils # (Auto) 0.04 07/03/17 00:05 Test 07/02/17 23:45 07/03/17 00:05 Urine Color YELLOW Urine Appearance CLOUDY (CLEAR) Urine pH 5.0 (4.5-7.5) Urine Specific [place] 1.022 (1.000-1.030) Urine Protein NEG (NEG) Urine Glucose (UA) NEG (NEG) Urine Ketones NEG (NEG) Urine Occult Blood NEG (NEG) Urine Nitrite NEG (NEG) Urine Bilirubin NEG (NEG) Urine Urobilinogen NEG (NEG) Urine Leukocyte Esterase LARGE (NEG) Urine WBC (Auto) >30 /hpf (0-5) Urine RBC (Auto) 0-4 /hpf (0-4) Urine Hyaline Casts (Auto) 5-10 /lpf (0-5) Urine Epithelial Cells (Auto) >30 /lpf (0-5) Urine Bacteria (Auto) NEG (NEG) White Blood Count 8.79 K/uL (4.8-10.8) Red Blood Count 4.24 M/uL (4.2-5.4) Hemoglobin 12.5 g/dL (12.0-16.0) Hematocrit 38.6 % (37-47) Mean Corpuscular Volume 91.0 fL (80-100) Mean Corpuscular Hemoglobin 29.5 pg (25-34) Mean Corpuscular Hemoglobin Concent 32.4 g/dl (32-36) Platelet Count 407 K/uL (130-400) Mean Platelet Volume 9.4 fL (7.4-10.4) Neutrophils (%) (Auto) 38.1 % Lymphocytes (%) (Auto) 47.0 % Monocytes (%) (Auto) 11.0 % Eosinophils (%) (Auto) 3.2 % Basophils (%) (Auto) 0.5 % Neutrophils # (Auto) 3.35 K/uL (1.4-6.5) Lymphocytes # (Auto) 4.13 K/uL (1.2-3.4) Monocytes # (Auto) 0.97 K/uL (0.11-0.59) Eosinophils # (Auto) 0.28 K/uL (0-0.5) Basophils # (Auto) 0.04 K/uL (0-0.2) RDW Standard Deviation 46.5 fL (36.4-46.3) RDW Coefficient of Variation 14.0 % (11.5-14.5) Immature Granulocyte % (Auto) 0.2 % Immature Granulocyte # (Auto) 0.02 K/uL (0.00-0.02) Anion Gap 11.0 mmol/L (3-11) Est Creatinine Clear Calc Drug Dose 60.7 ml/min Estimated GFR () 64.7 Estimated GFR (Non- 55.8 BUN/Creatinine Ratio 10.8 (10-20) Calcium Level 9.0 mg/dl (8.5-10.1) Total Bilirubin 0.2 mg/dl (0.2-1) Direct Bilirubin mg/dl (0-0.2) Aspartate Amino Transf (AST/SGOT) 14 U/L (15-37) Alanine Aminotransferase (ALT/SGPT) 19 U/L (12-78) Alkaline Phosphatase 67 U/L (45-117) Total Protein 7.5 gm/dl (6.4-8.2) Albumin 3.5 gm/dl (3.4-5.0) Chemistry Specimen Hemolysis Laboratory results per my review. Medications Administered Medications (Trade) Dose Ordered Sig/Brett Route Start Time Stop Time Status Last Admin Dose Admin Sodium Chloride 1,000 ml @ 125 mls/hr Q8H STAT IV 07/02/17 23:50 07/03/17 03:41 DC 07/03/17 00:14 125 MLS/HR Sodium Chloride 250 ml @ 999 mls/hr Q16M STAT IV 07/02/17 23:50 07/03/17 00:05 DC 07/03/17 00:14 999 MLS/HR Fentanyl Citrate (Fentanyl Inj) 50 mcg NOW STAT IV 07/02/17 23:50 07/02/17 23:54 DC 07/03/17 00:17 50 MCG Ondansetron HCl (Zofran Inj) 4 mg NOW STAT IV 07/02/17 23:50 07/02/17 23:54 DC 07/03/17 00:15 4 MG Ceftriaxone Sodium (Rocephin Inj) 1 gm NOW STAT IV 07/03/17 01:16 07/03/17 01:17 DC 07/03/17 01:37 1 GM Hydromorphone HCl (Dilaudid Inj) 0.5 mg NOW STAT IV 07/03/17 01:24 07/03/17 01:25 DC 07/03/17 01:29 0.5 MG ED Course 2349: Past medical records reviewed. The patient was evaluated in room A04B. A complete history and physical examination was performed. 2350: Ordered Zofran Inj 4mg IV, Fentanyl Inj 50mcg IV, Sodium Chloride 250 ml @ 999 mls/hr IV, Sodium Chloride 1000 ml @ 125 mls/hr IV 0116: Ordered Rocephin Inj 1gm IV 0124: Ordered Dilaudid Inj 0.5mg IV 0154: Upon reevaluation, the patient appeared to have improvement of her symptoms. She was still in mild discomfort. I discussed findings with her. She verbalized agreement of the treatment plan. The patient will be discharged home when she receives her medication. 0157: Ordered Tylenol Tab 650mg PO Medical Decision Differential diagnosis: Etiologies such as renal colic, appendicitis, diverticulitis, mesenteric ischemia, aortic pathology, infections, inflammatory bowel disease, PUD, biliary pathology, UTI, as well as others were entertained. This patient was evaluated and appeared to be in some discomfort. IV access was obtained and laboratory work was drawn. The patient was placed on the cardiac cath lab manager and found to be in a normal sinus rhythm. She was hydrated with normal saline solution, given IV fentanyl and Zofran. Laboratory work is fairly unrevealing. The patient's white blood cell count is normal. CT scan abdomen and pelvis was performed and is relatively negative for any acute finding. Urinalysis is indicative of infection however is also contaminated with epithelial cells. This will be sent for culture. The patient was given 1 g of IV ceftriaxone. She did require additional pain medication was given 0.5 mg of IV Dilaudid and 4 mg of IV Zofran. The patient and daughter were informed of the findings and agree with the plan for discharge. She will be given a prescription for Keflex 500 mg 4 times daily for 7 days. She will use Tylenol as needed for pain. Patient was advised to see her PCP within the next several days for reevaluation and to return to the ER for worsening of symptoms or any medical concerns. Medication Reconcilliation Current Medication List: was personally reviewed by me Blood Pressure Screening Patient's blood pressure: Elevated blood pressure Blood pressure disposition: Elevated BP felt to be situational Impression Primary Impression: Pyelonephritis Scribe Attestation The scribe's documentation has been prepared under my direction and personally reviewed by me in its entirety. I confirm that the note above accurately reflects all work, treatment, procedures, and medical decision making performed by me. Departure Information Dispostion Home / Self-Care Prescriptions Cephalexin Monohydrate (Keflex) 500 Mg Cap 500 MG PO QID, #28 CAP Prov: Laura Roland M.D. 07/03/17 Referrals Fiilpe Pugh M.D. (PCP) Forms HOME CARE DOCUMENTATION FORM, IMPORTANT VISIT INFORMATION Patient Instructions My [facility] Additional Instructions Diagnosis: Pyelonephritis Keflex 500 mg 4 times a day for 7 days. Follow-up with your physician this week for reevaluation. Drink plenty of clear fluids. Tylenol 650 mg every 6 hours as needed for pain or fever. Return to the emergency department for worsening of symptoms or any medical concerns.
[2017-07-03 00:13] LABS: BASO % 0.5 %; BASO ABS # 0.04 K/uL (0-0.2); COMPLETE YES; EOS % 3.2 %; HEMATOCRIT 38.6 % (37-47); IG% 0.2 %; LYMPH ABS # 4.13 K/uL (1.2-3.4); MEAN CORPUSCULAR HEMOGLOBIN 29.5 pg (25-34); MEAN CORPUSCULAR HGB CONC 32.4 g/dl (32-36); MEAN PLATELET VOLUME 9.4 fL (7.4-10.4); NEUT % 38.1 %; PLATELET COUNT 407 K/uL (130-400); RED BLOOD COUNT 4.24 M/uL (4.2-5.4); WHITE BLOOD COUNT 8.79 K/uL (4.8-10.8)
[2017-07-03 00:39] LABS: URINE APPEARANCE CLOUDY (CLEAR); URINE BILIRUBIN NEG (NEG); URINE COLOR YELLOW; URINE EPITHELIAL CELL AUTO >30 /lpf (0-5); URINE NITRITE NEG (NEG); URINE SPECIFIC GRAVITY 1.022 (1.000-1.030); UROBILINOGEN NEG (NEG); ZZUR CULT IF INDIC CLEAN CATCH YES
[2017-07-03 00:40] VITALS: BP 135/109; PULSE 75; O2SAT 93
[2017-07-03 00:41] LABS: MANUAL MICROSCOPIC REQUIRED? NO; REVIEW REQ? NO
[2017-07-03 00:41] LABS: ALKALINE PHOSPHATASE 67 U/L (45-117); ALT/SGPT 19 U/L (12-78); BLOOD UREA NITROGEN 11 mg/dl (7-18); BUN/CREATININE RATIO 10.8 (10-20); CARBON DIOXIDE 24 mmol/L (21-32); CHLORIDE 108 mmol/L (98-107); GLUCOSE 94 mg/dl (70-99)
[2017-07-03 00:52] LABS: AST/SGOT 14 U/L (15-37); POTASSIUM 4.2 mmol/L (3.5-5.1); SODIUM 143 mmol/L (136-145)
[2017-07-03] MEDS ORDERED: CEFTRIAXONE SOD INJ 1 GM ADDVIAL IV STA (01:16)
[2017-07-03] MEDS ORDERED: HYDROmorphone INJ 0.5 MG/0.5 ML SYR IV STA (01:24)
[2017-07-03 01:40] VITALS: O2SAT 89
[2017-07-03] MEDS ORDERED: CEPH500C PO ×2 (01:50→02:02)
[2017-07-03] MEDS ORDERED: ACETAMINOPHEN 325 MG TAB PO STA (01:57)
--- NOTE | 2017-07-03 07:31 | DIAGNOSTIC IMAGING REPORT ---
ABD/PELVIS WITHOUT FOR STONE CLINICAL HISTORY: 72 years-old Female presenting with Left flank pain. TECHNIQUE: Multidetector CT of the abdomen and pelvis was performed without the use of intravenous contrast. IV contrast: None. A dose lowering technique was used consistent with the principles of ALARA (as low as reasonably achievable). COMPARISON: None. CT DOSE (mGy.cm): The estimated cumulative dose is 1123.19 mGycm. FINDINGS: Real Estate Underwriter topogram: Unremarkable. Lung bases: Minimal dependent changes likely atelectasis. Mild coronary artery calcification. Normal heart size. No pericardial or pleural effusion. Liver: Normal morphology. Density consistent with hepatic steatosis. Biliary: No gross biliary ductal dilatation allowing for noncontrast technique. Normal gallbladder. Pancreas: Mild parenchymal atrophy. Spleen: Normal noncontrast appearance. Adrenal glands: Normal noncontrast appearance. Kidneys and ureters: Normal noncontrast appearance. No hydronephrosis. No nephrolithiasis. Normal ureters. Bladder: Incompletely evaluated secondary to underdistention. Pelvic organs: Uterus and ovaries normal. Bowel: Mild stool burden throughout normal caliber colon. Normal appendix. No bowel obstruction. Small hiatal hernia suggested. Peritoneal cavity: Infiltration at the root of the small bowel mesentery with an encapsulated appearance and associated prominent lymph nodes. No free intraperitoneal fluid or gas. Vasculature: Atherosclerosis of the normal caliber abdominal aorta. Lymph nodes: Prominent mesenteric lymph nodes measuring up to 8 mm in the short axis. No pathologically enlarged lymph nodes by CT size criteria. Abdominal wall: Normal. Musculoskeletal: Degenerative changes of the spine. IMPRESSION: 1. 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 This can be variably symptomatic. 2. No nephrolithiasis. No hydronephrosis. No evidence of recently passed calculus. 3. Hepatic steatosis. Electronically signed by: Hugo Hernandez M.D. 07/03/2017 6:53 AM Dictated Date/Time: 07/03/2017 6:49 AM
== END 2017-07-03 02:21 | disposition home or self-care (01) ==
LOC: C.EDB 23:34 → C.EDA 07-03 02:21
DX: N12 Tubulo-interstitial nephritis, not specified as acute or chronic (principal); E88.89 Other specified metabolic disorders; I70.0 Atherosclerosis of aorta; Z87.891 Personal history of nicotine dependence; Z79.899 Other long term (current) drug therapy

== ENCOUNTER → 2017-07-10 | Outpatient (CLI) | payer OTHER ==
[~2017-07-10] MED LIST changes: +CEPH500C PO
--- NOTE | 2017-07-16 13:40 | MAMMOGRAPHY REPORT ---
BILATERAL DIGITAL SCREENING MAMMOGRAM WITH CAD: 07/16/2017 TECHNIQUE: Current study was also evaluated with a Computer Aided Detection (CAD) system. Bilateral CC and MLO views were obtained. COMPARISON: Comparison is made to exams dated: 09/04/2015 mammogram, 08/30/2014 mammogram, 3 mammogram, 08/19/2011 mammogram, 08/24/2012 mammogram, and 08/17/2010 mammogram - [facility]. BREAST COMPOSITION: The tissue of both breasts is almost entirely fatty. FINDINGS: No suspicious masses, calcifications, or areas of architectural distortion are noted in ei ther breast. There has been no significant interval change compared to prior exams. Scattered bilater al benign-appearing calcifications are not significantly changed. IMPRESSION: ACR BI-RADS CATEGORY 2: BENIGN There is no mammographic evidence of malignancy. A 1 year screening mammogram is recommended. The pa tient will receive written notification of the results. Approximately 10% of breast cancers are not detected with mammography. A negative mammographic report should not delay biopsy if a clinically suggestive mass is present. Marguerite Hernandez M.D. /:07/16/2017 09:35:45 Sales Person: Glenny SEWELL(R)(M), [facility] letter sent: Normal 1/2 BI-RADS Code: ACR BI-RADS Category 2: Benign
== END | disposition home or self-care (01) ==
LOC: C.MAMM 12:13
PROVIDERS: ATTEND Family Medicine
DX: Z12.31 Encounter for screening mammogram for malignant neoplasm of breast (principal)

== ENCOUNTER → 2017-12-04 | Outpatient (CLI) | payer OTHER | END | disposition home or self-care (01) | LOC: C.LABPVFM 18:11 | PROVIDERS: ATTEND Family Medicine | DX: R39.9 Unspecified symptoms and signs involving the genitourinary system (principal) ==

== ENCOUNTER → 2018-01-08 | Outpatient (CLI) | payer OTHER ==
[~2018-01-08] MED LIST changes: -CEPH500C PO
[2018-01-08 13:38] LABS: HEMOGLOBIN A1C 6.1 % (4.5-5.6)
[2018-01-08 14:24] LABS: ALBUMIN 3.8 gm/dl (3.4-5.0); ALT/SGPT 22 U/L (12-78); AST/SGOT 14 U/L (15-37); BLOOD UREA NITROGEN 11 mg/dl (7-18); CALCIUM 9.1 mg/dl (8.5-10.1); CARBON DIOXIDE 26 mmol/L (21-32); CREATININE 1.06 mg/dl (0.60-1.20); GLUCOSE 95 mg/dl (70-99); POTASSIUM 4.2 mmol/L (3.5-5.1); SODIUM 139 mmol/L (136-145)
[2018-01-08 14:27] LABS: ALKALINE PHOSPHATASE 69 U/L (45-117); CHOLESTEROL 190 mg/dl (0-200); LDL CHOLESTEROL CALCULATED 91 mg/dl; TOTAL PROTEIN 7.8 gm/dl (6.4-8.2)
== END | disposition home or self-care (01) ==
LOC: C.LABPVFM 09:17
PROVIDERS: ATTEND Specialist
DX: E78.5 Hyperlipidemia, unspecified (principal); R42 Dizziness and giddiness

== ENCOUNTER 2021-07-03 05:02 | Inpatient (IN) ==
[2021-07-03] MEDS ORDERED: NITROGLYCERIN SL 0.4 MG/TAB TAB SL PRN ×2 (05:23→15:41)
[2021-07-03 05:32] LABS: Basophils # (auto) 0.02 K/uL (0-0.2); Basophils % (auto) 0.3 %; Eosinophils # (auto) 0.25 K/uL (0-0.5); Eosinophils % (auto) 3.3 %; Hematocrit (blood only) 42.2 % (37-47); Hemoglobin 13.8 g/dL (12.0-16.0); Immature Granulocytes # (auto) 0.01 K/uL (0.00-0.02); Immature Granulocytes % (auto) 0.1 %; Lymphocytes # (auto) 3.09 K/uL (1.2-3.4); Lymphocytes % (auto) 40.7 %; Mean Corpuscular Hemoglobin 31.1 pg (25-34); Mean Corpuscular Hgb Conc 32.7 g/dL (32-36); Mean Platelet Volume 9.4 fL (7.4-10.4); Monocytes % (auto) 10.5 %; Neutrophils # (auto) 3.42 K/uL (1.4-6.5); Neutrophils % (auto) 45.1 %; Platelet Count 441 K/uL (130-400); RDW Coefficient of Variation 13.3 % (11.5-14.5); Red Blood Count 4.44 M/uL (4.2-5.4); White Blood Count 7.59 K/uL (4.8-10.8)
[2021-07-03] MEDS ORDERED: traMADol HCL 50 MG TABLET PO STA (05:34)
[2021-07-03] MEDS ORDERED: NITROGLYCERIN 2% OINTMENT 30GM TUBE EXT ONE (05:34)
[2021-07-03] MEDS ORDERED: SODIUM CHLORIDE 0.9% 500 ML IV ONE (05:35)
[2021-07-03 05:42] LABS: Partial Thromboplastin Ratio 0.9; Partial Thromboplastin Time 22.8 Seconds (21.0-31.0)
[2021-07-03 05:57] LABS: Albumin Level 3.6 gm/dl (3.4-5.0); Calcium 9.1 mg/dl (8.5-10.1); Creatinine Clr Calc Pharmacy 48.1 ml/min; Est GFR (African American) 57.3 ml/min; Est GFR (Non-African American) 49.5 ml/min; Potassium 3.6 mmol/L (3.5-5.1)
[2021-07-03 05:59] LABS: D Dimer 1310 ug/L FEU (0-500)
[2021-07-03 06:03] LABS: Albumin Globulin Ratio 0.9 (0.9-2); Bilirubin,Total 0.4 mg/dl (0.2-1); Globulin 4.2 gm/dl (2.5-4.0); Total Protein 7.8 gm/dl (6.4-8.2); Troponin I 0.02 ng/ml (0-0.045)
[2021-07-03] MEDS ORDERED: CALCIUM CARBONATE 500 MG CHEWABLE TAB PO PRN (08:07)
[2021-07-03] MEDS ORDERED: PANTOprazole 40 MG TAB PO STA (08:07)
--- NOTE | 2021-07-03 08:24 | XRay Report ---
SINGLE VIEW CHEST CLINICAL HISTORY: Atypical chest pain. FINDINGS: An AP, portable, upright chest radiograph is compared to study dated 04/14/2016 and correlat ed with chest CT dated 12/17/2019. The heart is enlarged. The pulmonary vasculature is noncongested. T here is mild bibasilar atelectasis. The lungs and pleural spaces are otherwise clear. No pneumothorax is seen. The skeletal structures are osteopenic. The bony thorax is grossly intact. IMPRESSION: Mild cardiomegaly with no active disease in the chest. ACT 112: Negative or not required by law. Electronically signed by: Jose J Hernandez M.D. 07/03/2021 8:23 AM
[2021-07-03] MEDS ORDERED: ALUMINUM/MAGNESIUM SUSP 18 ML, LIDOCAINE VISCOUS 2% SOLN 6 ML, BARCODE IDENTIFIER 1 EA PO ONE (09:05)
[2021-07-03] MEDS ORDERED: GI COCKTAIL ED USE PO SCH (09:15)
--- NOTE | 2021-07-03 09:52 | History & Physical Report ---
Date of Service July 03, 2021 Assessment & Plan (1) NSTEMI (non-ST elevated myocardial infarction): Plan: - S/P Cardiac Catheterization on 07/[address] Farga -- PCI of mid to distal circumflex - ASA 81 mg daily and Plavix 75 mg daily x 6 months - Has been intolerant to statin therapy in the past - may benefit from a different type then previously used - Cardiology following - discussed with Dr. Gifford - appreciate input (2) Elevated d-dimer: Plan: - Elevated at 1310 - not hypoxic, no tachycardia, no fever, no pleuritic CP -- Unlikely PE however new diagnosis of malignancy and reports mother had multiple blood clots; FMHx list Factor V for a sister but she is not sure of this - Given catheterization with findings of blockage this could likely be the cause of her discomfort - Could consider CTA in 24 hours to further rule out (3) B-cell lymphoma: Plan: - New diagnosis - completed lymph node biopsy earlier this month with confirmation; had bone marrow biopsy on - Due to F/U with Dr. Osorio in approx. 2 weeks to get established care (4) Chronic pain: Plan: - Hold Meloxicam given ASA/Plavix; Continue Tramadol - normally takes BID (5) GERD (gastroesophageal reflux disease): Plan: - Protonix daily as interchange for Dexilant (6) HTN (hypertension), benign: Plan: - Continue Amlodipine 2.5 mg daily (7) Hyperlipidemia: Plan: - Statin intolerant due to muscle aches - May benefit from a different med vs lower dose instead of avoidance altogether - Continue Zetia 10 mg daily Plan: - Monitor in PCU History of Present Illness Chief Complaint: Chest Pain Primary Care Provider: Mitra Santizo MD Ms. Hagan is a 76F with PMHx of LBBB, HLD - Statin Intolerant, GERD, Esophageal Dysmotility, HTN, and B Cell Lymphoma who presents to the ED due to chest pain that started around 0300. Pt reports the pain woke her from her sleep and has remained in the mid-sternal area. On initial evaluation she stated it was just pain and had difficulty describing the pain. She rated it a 5/10. States nothing made the pain worse but was slightly relieved with sitting up. She states she has had similar feelings like this in the past but typically doesn't last this long. No change in diet recently. Occasionally was having a heartburn type sensation. She attempted NTG cream but felt funny with it. Her D- Dimer was elevated but no hypoxia, tachycardia, fever, or pleuritic chest pain. She was recently diagnosed with B Cell Lymphoma and is due to see Dr. Osorio in approximately 2 weeks. GI medications did not improve symptoms. She has a chronic LBBB on EKG making acute ischemic changes more difficult to interpret. Her repeat troponin was elevated at 0.279. Discussed the case with Dr. Gifford who recommends more emergent evaluation and triggered a heart alert. Patient is now S/P stent to circumflex. Allergies Allergy/AdvReac Type Severity Reaction Status Date / Time hornet venom Allergy Severe Anaphylaxis Verified 07/03/21 07:50 venom-wasp Allergy Severe Anaphylaxis Verified 07/03/21 07:50 Sulfa (Sulfonamide Allergy Intermediate Hives Verified 07/03/21 07:50 Antibiotics) adhesive Allergy Mild Rash Verified 07/03/21 07:50 codeine Allergy Mild Rash Verified 07/03/21 07:50 diclofenac Allergy Unknown Unknown Verified 07/03/21 07:50 famotidine Allergy Unknown Unknown Verified 07/03/21 07:50 morphine Allergy Unknown Unknown Verified 07/03/21 07:50 ibuprofen AdvReac Intermediate "Skin Verified 07/03/21 07:50 crawling" Xobkzrg-Llx-Hys Reductase AdvReac Intermediate Muscle Verified 07/03/21 07:50 Inhibitor aches Home Medications Medication Instructions Recorded Confirmed Type epinephrine 0.3 mg/0.3 mL 0.3 mg SUBCUT UD PRN #2 ea 03/30/19 07/03/21 History injection, auto-injector (EpiPen) meclizine 25 mg tablet (Motion 25 mg PO TID PRN #30 tab 03/30/19 07/03/21 History Sickness (meclizine)) potassium gluconate 595 mg (99 mg) 99 mg PO QAM tab 03/30/19 07/03/21 History tablet cyclobenzaprine 10 mg tablet 10 mg PO Q8H PRN tab 11/09/19 07/03/21 History magnesium oxide 500 mg tablet 500 mg PO BID tab 11/09/19 07/03/21 History (Deven) cholecalciferol (vitamin D3) 25 1,000 unit PO QAM 11/16/19 07/03/21 History mcg (1,000 unit) tablet (Vitamin D3) olrsruwn-bio-hhxz-FA-Ca carb-vit K 1 tab PO QAM 03/11/20 07/03/21 History 18 mg iron-400 mcg-500 mg tablet (One-A-Day Womens Formula) zinc 50 mg tablet 50 mg PO QAM 03/11/20 07/03/21 History amlodipine 2.5 mg tablet (Norvasc) 2.5 mg PO QAM 07/03/21 07/03/21 History clonazepam 0.5 mg tablet (Klonopin) 0.5 mg PO HS PRN 07/03/21 07/03/21 History dexlansoprazole 60 mg 60 mg PO QAM 07/03/21 07/03/21 History capsule,biphase delayed release (Dexilant) ezetimibe 10 mg tablet 10 mg PO DAILY 07/03/21 07/03/21 History lidocaine 4 % topical cream 1 applic TOPICAL TID PRN 07/03/21 07/03/21 History (Anecream) meloxicam 7.5 mg tablet (Mobic) 7.5 mg PO QAM 07/03/21 07/03/21 History tramadol 50 mg tablet (Ultram) See Rx Instructions .ROUTE .COMPLEX 07/03/21 07/03/21 History Past Med/Surg History Medical History Bundle branch block, left Chronic dating back to at least 05/2017 stress test Degenerative disc disease GERD (gastroesophageal reflux disease) Hyperlipidemia Nerve pain Left sided Osteoarthritis Osteoporosis Surgical History History of bilateral cataract extraction History of bilateral tubal ligation History of carpal tunnel release Left History of colonoscopy with polypectomy History of esophagogastroduodenoscopy (EGD) Family History Father Colorectal cancer Mother Myocardial infarction Colorectal cancer Hearing loss Grandmother (Paternal) Stroke Sister Stroke Factor V Leiden mutation Daughter Family history of reaction to anesthesia PONV Other Heart disease Denies family history of Ovarian cancer Prostate cancer Breast cancer Social History Smoking Status: Former smoker Tobacco Type: Cigarettes Cigarettes Per Day: 1970S; Second Hand Exposure: No; Do You Dip or Chew Tobacco: No; Tobacco Cessation Education Requested by Patient: No Hx Alcohol Use: No Hx Substance Use: No Preferred Language: Czech Communication Ability: Effective Geophysical Party Chief Required: No Beliefs That Will Affect Care: None Current Living Situation: Alone current occupational status: retired Other Information That Helps Us Care for You: No Feels Safe at Home: Yes Safety Concerns: Feels Safe At This Time caffeine: Yes Dental Care, Regularly: Yes Physical Activity Frequency: 1-2 Times per Week Physical Activity Frequency Comment: Daily housework, laundry, and minimal walking Seatbelt Use: always Sunscreen Use: No Assistive Devices: Glasses Review of Systems Review of Systems: REVIEW OF SYSTEMS General/Constitutional: Denies fever/chills ENT: Denies visual changes, nasal drainage, hearing loss, sore throat, trouble swallowing Cardiovascular: + midsternal chest pain (constant), Denies pleuritic chest pain; Denies palpitations, edema Respiratory: Denies cough, sputum, SOB, wheezing, orthopnea GI: Denies nausea, vomiting, abdominal pain, constipation, diarrhea, melena/hematochezia : Denies dysuria Musculoskeletal: Denies joint/muscle aches, weakness, swelling Neurologic: + lightheaded with NTG but Denies dizziness/lightheadedness otherwise Skin: Denies rash, itch, new skin changes, easy bruising Physical Exam Physical Exam: PHYSICAL EXAM General Appearance: WDWN in NAD who is A&O x 3 HEENT: Head is normocephalic/atraumatic; EOMI; PERRLA; Hearing grossly intact; Mucous membranes moist Neck: Supple; Trachea midline; Neg JVD; Neg lymphadenopathy Heart: RRR with no M/G/R Lungs: CTA in all lung bruno bilaterally; Respirations unlabored; Neg accessory muscle use Abdomen: Soft, non-tender, non-distended; Positive BS x 4 quadrants; Neg organomegaly Extremities: Neg cyanosis or edema Neurological: Speech clear; Gross motor/sensory function intact; Neg focal neurologic deficits Psychiatric: Appropriate mood/affect Skin: Normal Color; Warm/Dry Results & Data Results & Data ([facility]) Vital Signs (Past 12 Hours) Vital Signs Temp Pulse Resp BP Pulse Ox 07/03/21 08:15 62 15 117/72 94 07/03/21 08:01 65 19 159/88 H 95 07/03/21 07:30 73 17 156/92 H 96 07/03/21 07:00 68 14 140/96 94 07/03/21 06:39 94 07/03/21 06:30 69 12 125/105 H 96 07/03/21 06:00 99 H 28 H 170/92 H 100 07/03/21 05:30 72 18 140/91 97 07/03/21 05:05 36.6 C 78 20 157/97 H 98 Code Status & VTE Plan Code Status Do Not Resuscitate VTE Prophylaxis Plan VTE Prophylaxis will be ordered: Yes Supervising Physician Co-Signing Physician Notes Attending note: patient seen and examined with Chiquita FARIA. I agree with her assessment and plan, exam, ROS. I discussed the case with Dr. Gifford, appreciate his input and he called a heart alert in the emergency department. Patient went to the blood bank laboratory technologist, found to have acute 100% occlusion in left circumflex, successful ASH to the circumflex. Mild to moderate disease in other vessels. patient see in the ED by myself and then I visited her in PCU after her stent. Resting comfortably, no further chest pain, no dyspnea, no fever, no nausea. - NSTEMI: presented with ongoing chest pain, had a prior LBBB so difficult to interpret, but she had some inferior and anterior ST depression and TW inversion initial troponin negative, repeat at 11am showed it had bumped to 0.2 emergent heart cath, 100% occlussion left circumfex, treated with ASH Plavix and aspirin, statin check labs in AM patient may be able to go home tomorrow PG Care Time/CCT Total # of Minutes Spent Total Time Spent with Patient: Total time spent is greater than 50% in coordination of care (as documented) at patient's floor/unit and/or counseling patient: Coding Level of Care Code INT OBSERVATION CARE 50M LVL 2 Diagnoses NSTEMI (non-ST elevated myocardial infarction) I21.4 B-cell lymphoma C85.10 Chronic pain G89.29 GERD (gastroesophageal reflux disease) K21.9 Esophagitis presence: without esophagitis HTN (hypertension), benign I10 Hyperlipidemia E78.5 Elevated d-dimer R79.89 (1) GERD (gastroesophageal reflux disease) Esophagitis presence: without esophagitis Qualified Code(s): K21.9 - Gastro- esophageal reflux disease without esophagitis
[2021-07-03] MEDS ORDERED: ONDANSETRON INJ 2 MG/ML 2 ML VIAL IV ONE (12:49)
[2021-07-03] MEDS ORDERED: ASPIRIN CHEW 324 MG PO STA (12:54)
[2021-07-03] MEDS: SODIUM CHLORIDE 0.9% 500 ML IV SCH ×2 (13:22→19:06)
[2021-07-03] MEDS ORDERED: MIDAZOLAM HCL 1 MG/ML 2ML VIAL ONE (13:37)
[2021-07-03] MEDS ORDERED: NITROGLYCERIN/D5W 100MCG/ML 20ML SYR ONE (13:38)
[2021-07-03] MEDS ORDERED: niCARdipine HCL INJ 2.5 MG/ML 10 ML AMP ONE (13:38)
[2021-07-03] MEDS ORDERED: HEPARIN (PORCINE) 1000 UNIT/ML 10 ML (CATH LAB USE ONLY) ONE (13:38)
[2021-07-03] MEDS ORDERED: fentaNYL citrate 100 MCG/2 ML VIAL ONE (13:38)
--- NOTE | 2021-07-03 13:44 | Pre Anesthesia Assessment ---
Date of Service July 03, 2021 Pre Sedation Assessment Vital Signs Temp Pulse Resp BP Pulse Ox 07/03/21 13:25 78 21 129/63 94 07/03/21 13:20 75 19 118/75 91 07/03/21 13:10 84 21 101/72 93 07/03/21 13:05 93 H 20 118/74 95 07/03/21 13:00 78 16 142/85 H 92 07/03/21 12:00 64 20 102/72 96 07/03/21 11:30 65 17 113/63 94 07/03/21 11:00 60 16 122/80 94 07/03/21 09:30 56 L 15 119/81 93 07/03/21 09:00 57 L 16 132/79 94 07/03/21 08:30 58 L 14 112/73 92 07/03/21 08:15 62 15 117/72 94 07/03/21 08:01 65 19 159/88 H 95 07/03/21 07:30 73 17 156/92 H 96 07/03/21 07:00 68 14 140/96 94 07/03/21 06:39 94 07/03/21 06:30 69 12 125/105 H 96 07/03/21 06:00 99 H 28 H 170/92 H 100 07/03/21 05:30 72 18 140/91 97 07/03/21 05:05 97.9 F 78 20 157/97 H 98 Cardiovascular RRR, no murmur, no edema Respiratory normal respiratory effort, lungs clear to auscultation Pre-Sedation Airway Assessment Smoking Status: Never smoker Hx Sleep Apnea: No Hx Difficult Intubation: No Short, Thick Neck: No Thyromental Distance: > or= 3.5 Finger Breadths Oral Cavity: + WNL Mallampati Class: III ASA: ASA4 Procedure Planning Contraindications for Sedation: none Current Medications Reviewed: Yes Notes The planned sedation has been discussed with the patient. Informed Consent was obtained. I have identified the patient, determined the appropriateness of sedation and have assessed the patient immediately prior to the procedure. All medicine(s) and interventions are by my order.
--- NOTE | 2021-07-03 14:06 | Cardiology Consultation ---
Date of Consultation July 03, 2021 Assessment & Plan (1) NSTEMI (non-ST elevated myocardial infarction): Ability to care for symptoms is suggestive of angina. On further questioning, she describes on and off again recent chest discomfort. Her D- dimer is elevated at 1310 ug/l and certainly given her history of lymphoma, venous thromboembolic event is a possibility. At present however recommend proceeding with emergent cardiac catheterization. As noted her echocardiogram performed yesterday revealed no pericardial effusion normal LVEF. If she is not felt to have a coronary culprit, will likely proceed with empiric anticoagulation and follow-up CT angiogram in 24 hours if her creatinine is stable. Emergent cardiac catheterization was facilitated via the Heart Alert protocol. Case discussed with Dr. Fraga of interventional cardiology. History of Present Illness Attending Physician: Wily Randolph DO History of Present Illness iGlson Hagan is a 76-year-old female seen in cardiology consultation per the request of Chiquita Danielson PA-C of the [facility] hospitalist service for the evaluation of chest pain and abnormal troponin I. The patient follows with the undersigned as an outpatient. Her cardiac history dates back to 2016 when she was found to have a left bundle branch block at the time of routine colonoscopy. A follow-up nuclear stress test at that time was negative for ischemia. She has been followed clinically in the meantime. Her most recent echocardiogram had actually been performed yesterday, with findings of abnormal septal motion consistent with left bundle branch block, however preserved LVEF in the range of 55 to 59%. No pericardial effusion noted. She recently been diagnosed with biopsy-proven lymphoma, and work-up is underway. She presented to the emergency department just after 5 AM this morning with waxing waning chest discomfort that she describes as a "tightness "starting at 3:30 AM. At the time my assessment, the patient was ill in appearance, with recurrent chest discomfort. Her initial troponin I was undetectable, however the second measurement obtained at 11:59 AM was mildly elevated 0.279 NG per mL. EKG tracings performed on a serial basis thus far at 618, 812, and 1327 revealed findings of chronic left bundle branch block with resultant repolarization changes, no definite ST elevation. Allergies Allergy/AdvReac Type Severity Reaction Status Date / Time hornet venom Allergy Severe Anaphylaxis Verified 07/03/21 07:50 venom-wasp Allergy Severe Anaphylaxis Verified 07/03/21 07:50 Sulfa (Sulfonamide Allergy Intermediate Hives Verified 07/03/21 07:50 Antibiotics) adhesive Allergy Mild Rash Verified 07/03/21 07:50 codeine Allergy Mild Rash Verified 07/03/21 07:50 diclofenac Allergy Unknown Unknown Verified 07/03/21 07:50 famotidine Allergy Unknown Unknown Verified 07/03/21 07:50 morphine Allergy Unknown Unknown Verified 07/03/21 07:50 ibuprofen AdvReac Intermediate "Skin Verified 07/03/21 07:50 crawling" Pisspqj-Nvt-Yrr Reductase AdvReac Intermediate Muscle Verified 07/03/21 07:50 Inhibitor aches Home Medications Medication Instructions Recorded Confirmed Type epinephrine 0.3 mg/0.3 mL 0.3 mg SUBCUT UD PRN #2 ea 03/30/19 07/03/21 History injection, auto-injector (EpiPen) meclizine 25 mg tablet (Motion 25 mg PO TID PRN #30 tab 03/30/19 07/03/21 History Sickness (meclizine)) potassium gluconate 595 mg (99 mg) 99 mg PO QAM tab 03/30/19 07/03/21 History tablet cyclobenzaprine 10 mg tablet 10 mg PO Q8H PRN tab 11/09/19 07/03/21 History magnesium oxide 500 mg tablet 500 mg PO BID tab 11/09/19 07/03/21 History (Carvalho) cholecalciferol (vitamin D3) 25 1,000 unit PO QAM 11/16/19 07/03/21 History mcg (1,000 unit) tablet (Vitamin D3) ujyzjfyw-nod-qixw-FA-Ca carb-vit K 1 tab PO QAM 03/11/20 07/03/21 History 18 mg iron-400 mcg-500 mg tablet (One-A-Day Womens Formula) zinc 50 mg tablet 50 mg PO QAM 03/11/20 07/03/21 History amlodipine 2.5 mg tablet (Norvasc) 2.5 mg PO QAM 07/03/21 07/03/21 History clonazepam 0.5 mg tablet (Klonopin) 0.5 mg PO HS PRN 07/03/21 07/03/21 History dexlansoprazole 60 mg 60 mg PO QAM 07/03/21 07/03/21 History capsule,biphase delayed release (Dexilant) lidocaine 4 % topical cream 1 applic TOPICAL TID PRN 07/03/21 07/03/21 History (Anecream) meloxicam 7.5 mg tablet (Mobic) 7.5 mg PO QAM 07/03/21 07/03/21 History tramadol 50 mg tablet (Ultram) See Rx Instructions .ROUTE .COMPLEX 07/03/21 07/03/21 History Patient History Medical History Bundle branch block, left Chronic dating back to at least 05/2017 stress test Degenerative disc disease GERD (gastroesophageal reflux disease) Hyperlipidemia Nerve pain Left sided Osteoarthritis Osteoporosis Surgical History History of bilateral cataract extraction History of bilateral tubal ligation History of carpal tunnel release Left History of colonoscopy with polypectomy History of esophagogastroduodenoscopy (EGD) Family History Father Colorectal cancer Mother Myocardial infarction Colorectal cancer Hearing loss Grandmother (Paternal) Stroke Sister Stroke Factor V Leiden mutation Daughter Family history of reaction to anesthesia PONV Other Heart disease Denies family history of Ovarian cancer Prostate cancer Breast cancer Social History Smoking Status: Never smoker Tobacco Type: Cigarettes Cigarettes Per Day: 1970'S; Second Hand Exposure: No ( smoked); Hx Alcohol Use: No Hx Substance Use: No Preferred Language: Slovak Communication Ability: Effective Skein Yard Drier Required: No Beliefs That Will Affect Care: None Current Living Situation: Alone current occupational status: retired Feels Safe at Home: Yes caffeine: Yes Dental Care, Regularly: Yes Physical Activity Frequency: 1-2 Times per Week Physical Activity Frequency Comment: Daily housework, laundry, and minimal walking Seatbelt Use: always Sunscreen Use: No Assistive Devices: Glasses Review of Systems Review of Systems: All systems reviewed & are unremarkable except as noted in HPI & below Physical Exam Physical Exam: Temp Pulse Resp BP Pulse Ox 36.6 C 78 21 129/63 94 07/03/21 05:05 07/03/21 13:25 07/03/21 13:25 07/03/21 13:25 07/03/21 13:25 Constitutional: + ill appearing Respiratory: normal respiratory effort, lungs clear to auscultation Cardiovascular: Rate/Rhythm: regular rate Heart Sounds: no murmur Vessels: no JVD Extremities: no edema Gastrointestinal (Abdomen): normal bowel sounds, soft, nontender, no hepatosplenomegaly Neurologic: PERRL, EOMI, accommodation nl, no face palsy, no dysarthria Results & Data ([facility]) Vital Signs (Past 12 Hours) Vital Signs Temp Pulse Resp BP Pulse Ox 07/03/21 13:25 78 21 129/63 94 07/03/21 13:20 75 19 118/75 91 07/03/21 13:10 84 21 101/72 93 07/03/21 13:05 93 H 20 118/74 95 07/03/21 13:00 78 16 142/85 H 92 07/03/21 12:00 64 20 102/72 96 07/03/21 11:30 65 17 113/63 94 07/03/21 11:00 60 16 122/80 94 07/03/21 09:30 56 L 15 119/81 93 07/03/21 09:00 57 L 16 132/79 94 07/03/21 08:30 58 L 14 112/73 92 07/03/21 08:15 62 15 117/72 94 07/03/21 08:01 65 19 159/88 H 95 07/03/21 07:30 73 17 156/92 H 96 07/03/21 07:00 68 14 140/96 94 07/03/21 06:39 94 07/03/21 06:30 69 12 125/105 H 96 07/03/21 06:00 99 H 28 H 170/92 H 100 07/03/21 05:30 72 18 140/91 97 07/03/21 05:05 36.6 C 78 20 157/97 H 98
[2021-07-03] MEDS ORDERED: CLOPIDOGREL BISULFATE 300 MG TAB ONE (14:15)
--- NOTE | 2021-07-03 14:18 | Post Anesthesia Assessment ---
Date of Service July 03, 2021 Post Sedation Assessment Vital Signs Temp Pulse Resp BP Pulse Ox 07/03/21 13:25 78 21 129/63 94 07/03/21 13:20 75 19 118/75 91 07/03/21 13:10 84 21 101/72 93 07/03/21 13:05 93 H 20 118/74 95 07/03/21 13:00 78 16 142/85 H 92 07/03/21 12:00 64 20 102/72 96 07/03/21 11:30 65 17 113/63 94 07/03/21 11:00 60 16 122/80 94 07/03/21 09:30 56 L 15 119/81 93 07/03/21 09:00 57 L 16 132/79 94 07/03/21 08:30 58 L 14 112/73 92 07/03/21 08:15 62 15 117/72 94 07/03/21 08:01 65 19 159/88 H 95 07/03/21 07:30 73 17 156/92 H 96 07/03/21 07:00 68 14 140/96 94 07/03/21 06:39 94 07/03/21 06:30 69 12 125/105 H 96 07/03/21 06:00 99 H 28 H 170/92 H 100 07/03/21 05:30 72 18 140/91 97 07/03/21 05:05 97.9 F 78 20 157/97 H 98 Recovery Score Activity: Moves 4 extremities Respiration: Deep Breath/Cough Circulation: +/-20% PreAnes Value Consciousness: Fully Awake Oxygen Saturation: O2 needed for >90% Discharge Sedation Level of Care: Fast Track Phase II Post Sedation Plan On clinical assessment, the patient appears to have tolerated the sedation without complications. Patient is recovering as anticipated. Patient will continue to be monitored by nursing and may be discharged when sedation discharge criteria are met per below protocol. Upon Completions of procedure up to 15 minutes continue every 5 minute vital signs and the P.A.R. score; then discharge to a Phase I or Fast Track to Phase II per the following guidelines: * Discharge Patient to appropriate Phase II area if PAR is 8 or greater or return to pre- procedure baseline. The post - procedure orders will be as directed. * If PAR score is less than 8 or not return to pre-procedure baseline then patient will follow Phase I monitoring till PAR is reached for Phase II. The Phase I may be done in procedure room or may call to secure a Phase I area. * If naloxone or flumazenil are used for reversal, hold in Phase I for continued monitoring from when last reversal dose was given for a minimum of 60 minutes or longer pending the nurse and/or physician discretion of patient condition before discharge to Phase II. Please call the Sedation Physician to re-evaluate and complete post-note for discharge to Phase II area. Do NOT discharge from procedure sedation or Phase 1 until post- sedation evaluation note is complete by procedure /sedation MD Sedation Discharge Instructions to be given to the patient at discharge to home.
--- NOTE | 2021-07-03 14:27 | Cardiac Catheterization ---
[facility] Data: Loaders Cardiac Status Clinical evaluation leading to the procedure CAD Presenation: Non STEMI Anginal Classification: CCS IV Heart Failure: No Cardiogenic Shock within 24 Hours: No Cardiac Arrest within 24 Hours: No Imaging Studies Past 6 Months: Yes Stress Studies Past 6 Months: No Diagnostic Physicians Name: James Fraga MD Status: Emergency Closure Device Percutaneous Entry Location: Radial Closure Device: Radial Band Recommendations: PCI without planned CABG PCI Indication: PCI for high risk Non-ASTER Lesion Segment Name: Mid circumflex Culprit Artery: Yes Stenosis Prior to Rx (%): 100 Chronic Total Occlusion: No IVUS: No FFR: No Pre-Procedure BARRON Flow: 0 Previously Treated Lesion: No Lesion Complexity: Non-High/Non-C Lesion Length (mm): 12 Thrombus Present: Yes Bifurcation Lesion: No Guidewire Across Lesion: Stenosis Post-Procedure (%): 0 Post-Procedure BARRON Flow: 3 Devices(s) Deployed: Yes Yes Intraprocedure Events Significant Disection: No Perforation: No Cardiac Cath Procedure Full Procedure Date July 03, 2021 Pre-Procedure Diagnosis Pre-Procedure Diagnosis: Acute Coronary Syndrome AUC Score AUC Score: 9 Post-Procedure Diagnosis Post-Procedure Diagnosis: Severe CAD, Successful PCI and Normal Intracardiac Pressures Procedure(s) Performed Procedure(s) Performed: Coronary Angiography, Left Heart Cath and Drug Eluting Stent Battery Mechanic James Fraga MD Shear Grinder Operator(s) Loly Estimated Blood Loss Estimated Blood Loss: 10 Medication(s) Medication(s): Clopidogrel, Fentanyl, Heparin, Lidocaine 1%, Nicardipine, Nitroglycerin and Versed Summary of Findings Indication: Acute coronary syndrome, refractory chest pain Access: 6 Fr right radial artery Catheters: Brashear, EBU 3.5 guide Findings: LM -medium caliber vessel, no significant disease LAD -medium caliber vessel, diffuse proximal to mid disease up to 30%, 40% mid stenosis at takeoff of small D3, small distal LAD extends to apex. Small D3 with moderate ostial disease thank you. Circumflex -medium caliber, 100% acute mid occlusion after takeoff of moderate OM1. RCA -dominant, very large caliber vessel with mid and distal luminal regularities. LVEDP -15 -- PCI -- Antithrombotic therapy: Heparin, clopidogrel Procedure: Left main cannulated with EBU 3.5 guide Silk Presser 50 wire passed across lesion into distal left PLB Mid circumflex lesion predilated with 2.5 compliant balloon Dilated lesion stented with 2.5 x 15 mm Dawson drug-eluting stent Stent post-dilated with 2.5 noncompliant balloon IC vasodilators administered for spasm Post procedure BARRON 3 flow, stent well expanded with minimal residual stenosis and no apparent cardiac complications. Arterial Closure: TR band Summary: 1. Acute 100% mid circumflex occlusion 2. Mild nonculprit coronary artery disease Diffuse proximal LAD up to 30%, 40% mid LAD at takeoff of small D3 3. Normal intracardiac filling pressure 4. Successful PCI of mid to distal circumflex with single drug-eluting stent (2.5 x 15 mm Dawson). Recommendations: To PCU for continued monitoring Loaded with clopidogrel 600 mg in Loaders Continue dual-antiplatelet therapy for at least 6 months Continue statin, and ASCVD risk factor modification Consult cardiac Rehab Hemodynamics Rest Ao:: 131/59/92 Final Ao: 88/44/60 LV: 140/15 Recommendations Recommendations: PCI without planned CABG Specimens Specimens: None Radiation Exposure (mGy) 1626 Contrast (mls) 75 Fluids (cc crystalloids) Fluids (cc crystalloids): 290 Anesthesia Moderate [id number] Procedural Complication(s) None Disposition PCU I attest to the content of the Intraoperative Record and any orders documented therein. Any exceptions are noted below. [facility] Card Cath Procedure Codes Cardiac Catheterization Procedure 1: Cardiovascular Cath Procedures: 94533 Coronaries and LHC (+/-LV) Moderate Sedation Procedure 1: Sedation/Anesthesia: 22676 Mod Sedation by the same physician;Init15 Min Child Age 5 & Up Procedure 2: Sedation/Anesthesia: 34737 Mod Sedation by the same physician; Ea [id number] Minutes Stenting Procedure 1: Cardiovascular Stent Procedures: 29852 Perc transluminal revascularization of acute sub/total occl, aMI PG Care Time/CCT Total # of Minutes Spent Total Time Spent with Patient: Total time spent is greater than 50% in coordination of care (as documented) at patient's floor/unit and/or counseling patient:
[2021-07-03] MEDS ORDERED: ASPIRIN 81 MG ECTAB PO SCH (15:41)
[2021-07-03] MEDS ORDERED: ACETAMINOPHEN 325 MG TAB PO PRN (15:41)
[2021-07-03] MEDS ORDERED: ONDANSETRON INJ 2 MG/ML 2 ML VIAL IV PRN (15:41)
[2021-07-03] MEDS ORDERED: CYCLOBENZAPRINE HCL 10 MG TAB PO PRN (15:49)
[2021-07-03] MEDS ORDERED: clonazePAM 0.5 MG TAB PO PRN (15:58)
--- NOTE | 2021-07-03 16:00 | Communication Note ---
Date of Service: July 03, 2021 With patient's permission, I called and updated her daughter, Ruth, mobile number [phone] with her cardiac catheterization results. Questions answered to Ruth's satisfaction.
[2021-07-03] MEDS: amLODIPine BESYLATE 5 MG TAB PO SCH (17:02)
[2021-07-03] MEDS: ENOXAPARIN INJ 40 MG/0.4 ML SYR SQ SCH (17:14)
--- NOTE | 2021-07-03 17:57 | Communication Note ---
Date of Service: July 03, 2021 Patient reassessed in the PCU, post PCI, stenting of the circumflex coronary artery. No additional symptoms suggestive angina are noted. She just notes being tired. Normal saline is infusing, with plan to complete 750 mL as of 2100 tonight. Continue aspirin, clopidogrel, amlodipine. No beta-jocelyne due to underlying left bundle branch block, and baseline heart rates in the 60s.
[2021-07-03] MEDS: traMADol HCL 50 MG TABLET PO PRN (20:35)
[2021-07-04] MEDS: PANTOprazole 40 MG TAB PO SCH (06:15)
[2021-07-04 07:34] LABS: Hematocrit (blood only) 35.3 % (37-47); Hemoglobin 11.5 g/dL (12.0-16.0); Mean Corpuscular Hemoglobin 30.3 pg (25-34); Mean Corpuscular Hgb Conc 32.6 g/dL (32-36); Mean Corpuscular Volume 93.1 fL (80-100); Mean Platelet Volume 9.4 fL (7.4-10.4); Platelet Count 345 K/uL (130-400); RDW Coefficient of Variation 13.7 % (11.5-14.5); RDW Standard Deviation 46.6 fL (36.4-46.3); Red Blood Count 3.79 M/uL (4.2-5.4); White Blood Count 8.91 K/uL (4.8-10.8)
--- NOTE | 2021-07-04 07:41 | Emergency Department Note ---
History of Present Illness General Chief complaint: Chest Pain Stated complaint: CHEST PAIN,NECK PAIN,NAUSEA Time Seen by Provider: 07/03/21 05:25 History of Present Illness Maximum Pain Intensity: 5 This is a 76-year-old female presenting to the emergency department for evaluation of atypical chest pain. The patient states the pain is central, dull, and nonradiating. She rates it a 3/10 at best and 5/10 at worst. She does not identify aggravating or alleviating factors. The patient has had symptoms like this several times over the years, stating that most of the time it is acid ref lux and improves with Tums. She does state that one time she had a "silent heart attack "with similar symptoms. She did take Tums tonight without any improvement of symptoms. The patient has not had fevers or chills. She states that she is not able to take NSAIDs and did not take any aspirin. Home Medications Medication Instructions Recorded Confirmed Type epinephrine 0.3 mg/0.3 mL 0.3 mg SUBCUT UD PRN #2 ea 03/30/19 07/03/21 History injection, auto-injector (EpiPen) meclizine 25 mg tablet (Motion 25 mg PO TID PRN #30 tab 03/30/19 07/03/21 History Sickness (meclizine)) potassium gluconate 595 mg (99 mg) 99 mg PO QAM tab 03/30/19 07/03/21 History tablet cyclobenzaprine 10 mg tablet 10 mg PO Q8H PRN tab 11/09/19 07/03/21 History magnesium oxide 500 mg tablet 500 mg PO BID tab 11/09/19 07/03/21 History (Carvalho) cholecalciferol (vitamin D3) 25 1,000 unit PO QAM 11/16/19 07/03/21 History mcg (1,000 unit) tablet (Vitamin D3) swancnmo-vjs-moeo-FA-Ca carb-vit K 1 tab PO QAM 03/11/20 07/03/21 History 18 mg iron-400 mcg-500 mg tablet (One-A-Day Womens Formula) zinc 50 mg tablet 50 mg PO QAM 03/11/20 07/03/21 History amlodipine 2.5 mg tablet (Norvasc) 2.5 mg PO QAM 07/03/21 07/03/21 History clonazepam 0.5 mg tablet (Klonopin) 0.5 mg PO HS PRN 07/03/21 07/03/21 History dexlansoprazole 60 mg 60 mg PO QAM 07/03/21 07/03/21 History capsule,biphase delayed release (Dexilant) ezetimibe 10 mg tablet 10 mg PO DAILY 07/03/21 07/03/21 History lidocaine 4 % topical cream 1 applic TOPICAL TID PRN 07/03/21 07/03/21 History (Anecream) meloxicam 7.5 mg tablet (Mobic) 7.5 mg PO QAM 07/03/21 07/03/21 History tramadol 50 mg tablet (Ultram) See Rx Instructions .ROUTE .COMPLEX 07/03/21 07/03/21 History Allergies Allergy/AdvReac Type Severity Reaction Status Date / Time hornet venom Allergy Severe Anaphylaxis Verified 07/03/21 07:50 venom-wasp Allergy Severe Anaphylaxis Verified 07/03/21 07:50 Sulfa (Sulfonamide Allergy Intermediate Hives Verified 07/03/21 07:50 Antibiotics) adhesive Allergy Mild Rash Verified 07/03/21 07:50 codeine Allergy Mild Rash Verified 07/03/21 07:50 diclofenac Allergy Unknown Unknown Verified 07/03/21 07:50 famotidine Allergy Unknown Unknown Verified 07/03/21 07:50 morphine Allergy Unknown Unknown Verified 07/03/21 07:50 ibuprofen AdvReac Intermediate "Skin Verified 07/03/21 07:50 crawling" Hmrfvmi-Wif-Bmf Reductase AdvReac Intermediate Muscle Verified 07/03/21 07:50 Inhibitor aches Past Med/Surg History Medical History Bundle branch block, left Chronic dating back to at least 05/2017 stress test Degenerative disc disease GERD (gastroesophageal reflux disease) Hyperlipidemia Nerve pain Left sided Osteoarthritis Osteoporosis Surgical History History of bilateral cataract extraction History of bilateral tubal ligation History of carpal tunnel release Left History of colonoscopy with polypectomy History of esophagogastroduodenoscopy (EGD) Family History Father Colorectal cancer Mother Myocardial infarction Colorectal cancer Hearing loss Grandmother (Paternal) Stroke Sister Stroke Factor V Leiden mutation Daughter Family history of reaction to anesthesia PONV Other Heart disease Denies family history of Ovarian cancer Prostate cancer Breast cancer Social History Smoking Status: Former smoker Tobacco Type: Cigarettes Cigarettes Per Day: 1970'S; Second Hand Exposure: No; Do You Dip or Chew Tobacco: No; Tobacco Cessation Education Requested by Patient: No Hx Alcohol Use: No Hx Substance Use: No Preferred Language: Surinamese Communication Ability: Effective Automotive Sales Executive Required: No Beliefs That Will Affect Care: None Current Living Situation: Alone current occupational status: retired Other Information That Helps Us Care for You: No Feels Safe at Home: Yes Safety Concerns: Feels Safe At This Time caffeine: Yes Dental Care, Regularly: Yes Physical Activity Frequency: 1-2 Times per Week Physical Activity Frequency Comment: Daily housework, laundry, and minimal walking Seatbelt Use: always Sunscreen Use: No Assistive Devices: Glasses Review of Systems A total of 10 systems reviewed and were otherwise negative Physical Exam VITALS: Vitals are noted on the nurse's note and reviewed by myself. Vital s igns stable. GENERAL: Elderly white female who appears in no acute distress HEAD: Normocephalic atraumatic. HEART: Regular rate and rhythm without murmurs gallops or rubs. LUNGS: Clear to auscultation bilaterally without wheezes, rales or rhonchi. No retractions or accessory muscle use. ABDOMEN: Positive normal bowel sounds x 4. Soft, nontender, without masses or organomegaly. NEURO: Patient was alert and oriented to person place and time. CN II through XII grossly intact. Course Administered Medications Amlodipine Besylate (Amlodipine Besylate 5 Mg Tab) 2.5 mg PO DAILY PRASHANT Stop: 08/02/21 15:40 Last Admin: 07/03/21 17:02 Dose: 2.5 mg Documented by: [id number] Calcium Carbonate (Calcium Carbonate 500 Mg Chewable Tab) 500 mg PO Q6 PRN PRN Reason: Indigestion Stop: 08/02/21 08:06 Last Admin: 07/03/21 08:28 Dose: 500 mg Documented by: [id number] Clonazepam (Clonazepam 0.5 Mg Tab) 0.5 mg PO HS PRN PRN Reason: Sleep Stop: 08/02/21 15:57 Last Admin: 07/03/21 22:03 Dose: 0.5 mg Documented by: [id number] Enoxaparin Sodium (Enoxaparin Inj 40 Mg/0.4 Ml Syr) 40 mg SQ Q24H [facility] Stop: 08/02/21 15:59 Last Admin: 07/03/21 17:14 Dose: 40 mg Documented by: [id number] Nitroglycerin (Nitroglycerin Sl 0.4 Mg/Tab Tab) 0.4 mg SL UD PRN PRN Reason: Chest Pain Stop: 08/02/21 05:22 Last Admin: 07/03/21 12:59 Dose: 0.4 mg Documented by: [id number] Pantoprazole Sodium (Pantoprazole 40 Mg Tab) 40 mg PO [facility] Stop: 08/03/21 08:59 Last Admin: 07/04/21 06:15 Dose: 40 mg Documented by: [id number] Tramadol HCl (Tramadol Hcl 50 Mg Tablet) 100 mg PO TID PRN PRN Reason: pain Stop: 08/02/21 15:59 Last Admin: 07/03/21 20:35 Dose: 100 mg Documented by: [id number] Discontinued Medications Al Hydrox/Mg Hydrox/Simethicone (Gi Cocktail Ed Use) 1 dose PO 914 [facility] Stop: 07/03/21 12:00 Last Admin: 07/03/21 09:42 Dose: 1 dose Documented by: [id number] Aspirin (Aspirin Chew 324 Mg) 324 mg PO NOW STA Stop: 07/03/21 12:55 Last Admin: 07/03/21 13:26 Dose: 324 mg Documented by: [id number] Aspirin (Aspirin 81 Mg Ectab) 81 mg PO [facility] Stop: 08/02/21 15:40 Last Admin: 07/03/21 17:29 Dose: Not Given Documented by: [id number] Clopidogrel Bisulfate (Clopidogrel Bisulfate 300 Mg Tab) Confirm Administered Dose 600 mg .ROUTE .STK-MED ONE Stop: 07/03/21 14:16 Last Admin: 07/03/21 14:31 Dose: 600 mg Documented by: [id number] Fentanyl Citrate (Fentanyl Citrate 100 Mcg/2 Ml Vial) Confirm Administered Dose 100 mcg .ROUTE .STK-MED ONE Stop: 07/03/21 13:39 Last Increment: 07/03/21 14:13 Dose: 50 mcg Documented by: [id number] Heparin Sodium (Porcine) (Heparin (Porcine) 1000 Unit/Ml 10 Ml (Discharge Door Operator Use Only)) Confirm Administered Dose 10,000 units .ROUTE .STK-MED ONE Stop: 07/03/21 13:39 Last Admin: 07/03/21 14:05 Dose: 9,000 units Documented by: [id number] Heparin Sodium/Sodium Chloride (Heparin In Nss Infusion 1000 Unit/500 Ml (2 U/Ml) Bag) Confirm Administered Dose 3,000 units IV .STK-MED ONE Stop: 07/03/21 13:39 Last Admin: 07/03/21 14:05 Dose: 3,000 units Documented by: [id number] Sodium Chloride (Nss) 500 mls @ 999 mls/hr IV .Q31M ONE Stop: 07/03/21 06:05 Last Infusion: 07/03/21 07:10 Dose: 0 mls/hr Documented by: [id number] Admin: 07/03/21 05:45 Dose: 999 mls/hr Documented by: [id number] Sodium Chloride (Nss) 500 mls @ 100 mls/hr IV .Q5H PRASHANT Stop: 07/03/21 21:10 Last Infusion: 07/03/21 21:18 Dose: 0 mls/hr Documented by: [id number] Admin: 07/03/21 19:06 Dose: 100 mls/hr Documented by: [id number] Infusion: 07/03/21 19:05 Dose: 0 mls/hr Documented by: [id number] Infusion: 07/03/21 15:57 Dose: 100 mls/hr Documented by: [id number] Admin: 07/03/21 13:22 Dose: 80 mls/hr Documented by: [id number] Midazolam HCl (Midazolam Hcl 1 Mg/Ml 2ml Vial) Confirm Administered Dose 2 mg .ROUTE .STK-MED ONE Stop: 07/03/21 13:38 Last Admin: 07/03/21 14:13 Dose: 1 mg Documented by: [id number] Nicardipine HCl (Nicardipine Hcl Inj 2.5 Mg/Ml 10 Ml Amp) Confirm Administered Dose 25 mg .ROUTE .STK-MED ONE Stop: 07/03/21 13:39 Last Admin: 07/03/21 14:05 Dose: 25 mg Documented by: [id number] Nitroglycerin (Nitroglycerin 2% Ointment 30gm Tube) 1 inch EXT NOW ONE Stop: 07/03/21 05:35 Last Admin: 07/03/21 05:44 Dose: 1 inch Documented by: [id number] Nitroglycerin/Dextrose (Nitroglycerin/D5w 100mcg/Ml 20ml Syr) Confirm Administered Dose 2,000 mcg .ROUTE .STK-MED ONE Stop: 07/03/21 13:39 Last Admin: 07/03/21 14:05 Dose: 2,000 mcg Documented by: [id number] Ondansetron HCl (Ondansetron Inj 2 Mg/Ml 2 Ml Vial) 4 mg IV ONE ONE Stop: 07/03/21 12:50 Last Admin: 07/03/21 12:59 Dose: 4 mg Documented by: [id number] Pantoprazole Sodium (Pantoprazole 40 Mg Tab) 40 mg PO NOW STA Stop: 07/03/21 08:08 Last Admin: 07/03/21 08:28 Dose: 40 mg Documented by: [id number] Tramadol HCl (Tramadol Hcl 50 Mg Tablet) 50 mg PO NOW STA Stop: 07/03/21 05:35 Last Admin: 07/03/21 05:44 Dose: 50 mg Documented by: [id number] Medical Decision Making Differential Diagnosis Differential diagnosis includes, but is not limited to: Myocardial infarction, dysrhythmia, pericarditis, pneumothorax, aortic aneurysm/dissection, DVT/PE, anxiety, GERD, PUD, electrolyte imbalance, thyroid disorder, pneumonia, bronchitis, pancreatitis, and others Laboratory Data Result diagrams: 07/04/21 07:03 07/03/21 05:20 Lab Results 07/03/21 07/03/21 07/03/21 Range/Units 05:20 05:20 05:20 WBC 7.59 (4.8-10.8) K/uL RBC 4.44 (4.2-5.4) M/uL Hgb 13.8 (12.0-16.0) g/dL Hct 42.2 (37-47) % MCV 95.0 (80-100) fL MCH 31.1 (25-34) pg MCHC 32.7 (32-36) g/dL RDW Std Deviation 46.0 (36.4-46.3) fL RDW Coeff of Deon 13.3 (11.5-14.5) % Plt Count 441 H (130-400) K/uL MPV 9.4 (7.4-10.4) fL Immature Gran % (Auto) 0.1 % Neut % (Auto) 45.1 % Lymph % (Auto) 40.7 % [place] % (Auto) 10.5 % Eos % (Auto) 3.3 % Baso % (Auto) 0.3 % Neut # (Auto) 3.42 (1.4-6.5) K/uL Lymph # (Auto) 3.09 (1.2-3.4) K/uL [place] # (Auto) 0.80 H (0.11-0.59) K/uL Eos # (Auto) 0.25 (0-0.5) K/uL Baso # (Auto) 0.02 (0-0.2) K/uL Immature Gran # (Auto) 0.01 (0.00-0.02) K/uL APTT 22.8 (21.0-31.0) Seconds PTT Ratio 0.9 D-Dimer 1310 H* (0-500) ug/L FEU Sodium 142 (136-145) mmol/L Potassium 3.6 (3.5-5.1) mmol/L Chloride 108 H (98-107) mmol/L Carbon Dioxide 29 (21-32) mmol/L Anion Gap 5.0 (3-11) BUN 11 (7-18) mg/dl Creatinine 1.08 (0.6-1.2) mg/dl Est Cr Clr Drug Dosing 48.1 ml/min Est GFR ( Amer) 57.3 ml/min Est GFR (Non-Af Amer) 49.5 ml/min BUN/Creatinine Ratio 10.0 (10-20) Glucose 107 H (70-99) mg/dl Calcium 9.1 (8.5-10.1) mg/dl Total Bilirubin 0.4 (0.2-1) mg/dl AST 13 L (15-37) U/L ALT 18 (12-78) U/L Alkaline Phosphatase 86 (45-117) U/L Troponin I 0.020 (0-0.045) ng/ml Total Protein 7.8 (6.4-8.2) gm/dl Albumin 3.6 (3.4-5.0) gm/dl Globulin 4.2 H (2.5-4.0) gm/dl Albumin/Globulin Ratio 0.9 (0.9-2) Lipase 85 (73-393) U/L COVID-19 Eval Order SARS-CoV-2 (PCR) (Negative) 07/03/21 07/03/21 Range/Units 06:36 06:36 WBC (4.8-10.8) K/uL RBC (4.2-5.4) M/uL Hgb (12.0-16.0) g/dL Hct (37-47) % MCV (80-100) fL MCH (25-34) pg MCHC (32-36) g/dL RDW Std Deviation (36.4-46.3) fL RDW Coeff of Deno (11.5-14.5) % Plt Count (130-400) K/uL MPV (7.4-10.4) fL Immature Gran % (Auto) % Neut % (Auto) % Lymph % (Auto) % [place] % (Auto) % Eos % (Auto) % Baso % (Auto) % Neut # (Auto) (1.4-6.5) K/uL Lymph # (Auto) (1.2-3.4) K/uL [place] # (Auto) (0.11-0.59) K/uL Eos # (Auto) (0-0.5) K/uL Baso # (Auto) (0-0.2) K/uL Immature Gran # (Auto) (0.00-0.02) K/uL APTT (21.0-31.0) Seconds PTT Ratio D-Dimer (0-500) ug/L FEU Sodium (136-145) mmol/L Potassium (3.5-5.1) mmol/L Chloride (98-107) mmol/L Carbon Dioxide (21-32) mmol/L Anion Gap (3-11) BUN (7-18) mg/dl Creatinine (0.6-1.2) mg/dl Est Cr Clr Drug Dosing ml/min Est GFR ( Amer) ml/min Est GFR (Non-Af Amer) ml/min BUN/Creatinine Ratio (10-20) Glucose (70-99) mg/dl Calcium (8.5-10.1) mg/dl Total Bilirubin (0.2-1) mg/dl AST (15-37) U/L ALT (12-78) U/L Alkaline Phosphatase (45-117) U/L Troponin I (0-0.045) ng/ml Total Protein (6.4-8.2) gm/dl Albumin (3.4-5.0) gm/dl Globulin (2.5-4.0) gm/dl Albumin/Globulin Ratio (0.9-2) Lipase (73-393) U/L COVID-19 Eval Order Covid19 at [facility] SARS-CoV-2 (PCR) NEGATIVE (Negative) Imaging Data Radiologist's Impression: Chest X-Ray 07/03/21 05:23 SINGLE VIEW CHEST CLINICAL HISTORY: Atypical chest pain. FINDINGS: An AP, portable, upright chest radiograph is compared to study dated 04/14/2016 and correlated with chest CT dated 12/17/2019. The heart is enlarged. The pulmonary vasculature is noncongested. There is mild bibasilar atelectasis. The lungs and pleural spaces are otherwise clear. No pneumothorax is seen. The skeletal structures are osteopenic. The bony thorax is grossly intact. IMPRESSION: Mild cardiomegaly with no active disease in the chest. ACT 112: Negative or not required by law. Electronically signed by: Jose J Hernandez M.D. 07/03/2021 8:23 AM MDM Narrative Physical exam and history were performed. Nursing notes, EMR, and Medication List were personally reviewed. Patient appears to have atypical chest pain bringing her to the emergency room. She does not appear toxic on exam. Initial EKG does not show acute ST elevation. IV access was established and labs were obtained. The patient was very gently hydrated with saline. Nitropaste was applied, however the patient states this made her feel much worse and demanded that we remove it. An order was placed for continuous cardiac monitoring. The monitor shows a rate of 88 with normal sinus rhythm. Patient's blood work is as above and was reviewed. She does not have a significantly elevated white blood cell count or gross anemia. Transaminases are not diagnostic. Lipase is normal. Troponin is detectable at 0.020. Review of her EMR shows that she has never had a detectable troponin, and while this is technically not elevated it is atypical for her. The patient does have an elevated D-dimer greater than 1300. CT scan was considered, however the patient may need evaluation at the Discharge Door Operator and we felt it was appropriate to let this decision to the admitting team. The case was discussed with my attending physician, Dr. Roland, and overall we feel the patient is not well for discharge home. Her symptoms are concerning. The case was discussed with the on-call hospitalist team who agreed to evaluate the patient here in the ER. Please see their dictation for further patient course, plan, and disposition. The chart was completed utilizing [employer] Speech Voice Recognition Software. Grammatical errors, random word insertions, pronoun errors, and incomplete sentences are an occasional consequence of this system due to software limitations, ambient noise, and hardware issues. Any formal questions or concerns about the content, text, or information contained within the body of this dictation should be directly addressed to the provider for clarification. . Impression & Plan Atypical chest pain, Elevated d-dimer, Elevated troponin Discharge Plan Visit Data Chief Complaint: Chest Pain Stated Complaint: CHEST PAIN,NECK PAIN,NAUSEA ED Provider: Laura Roland ED Midlevel Provider: Flaco Rizo Discharge Problem: Atypical chest pain, Elevated d-dimer, Elevated troponin Patient Disposition: Admitted As Inpatient Discharge Instructions Interventions: ED Discharge Assessment Last Done: 07/03/21 13:36
[2021-07-04 08:07] LABS: Calcium 8.5 mg/dl (8.5-10.1); Creatinine Clr Calc Pharmacy 53.7 ml/min; Est GFR (African American) 65.3 ml/min; Est GFR (Non-African American) 56.3 ml/min; Potassium 3.4 mmol/L (3.5-5.1)
[2021-07-04] MEDS: ASPIRIN 81 MG ECTAB PO SCH (08:35)
[2021-07-04] MEDS: amLODIPine BESYLATE 5 MG TAB PO SCH (08:36)
[2021-07-04] MEDS: traMADol HCL 50 MG TABLET PO PRN ×2 (08:44→20:25)
[2021-07-04] MEDS ORDERED: EZETIMIBE 10 MG TABLET PO SCH (09:00)
[2021-07-04] MEDS ORDERED: POTASSIUM CHLORIDE CRTAB 20 MEQ TABCR PO STA (09:09)
[2021-07-04] MEDS: ATORVASTATIN 40 MG TAB PO SCH (09:12)
--- NOTE | 2021-07-04 10:00 | Cardiology Progress Note ---
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 Mild nonculprit coronary artery disease Diffuse proximal LAD up to 30%, 40% mid LAD at takeoff of small D3 for which medial management recommended. Continue ASA, Plavix.Lifelong ASA. Plavix x at least 1 year. Not on beta jocelyne due to LBBB, baseline HR in 60s. Not on BENJIE / ARB as outpatient as BP well controlled, and no clinical CHF. I am hesitant to discontinue her chronic amlodipine, as it is likely providing antianginal benefit. Troponin has trended up to 35 ng/ml post PCI, repeat at 1400. (2) Bundle branch block, left: As noted, Chronic, dating back to 2016. Normal LVEF on repeat echo am of 07/04. No new regional wall motion abnormalities. (3) Hypokalemia: Replace orally (4) HTN (hypertension): Continue amlodipine. (5) Hyperlipidemia: Updated LDL lab ordered. Atorvastatin added to Ezetimibe. (6) B-cell lymphoma of lymph nodes of neck: s/p recent lymph node biopsy. Continue outpatient treatment DISPOSITION: -Ambulate in hallway as tolerated. -repeat troponin at 2 pm. Will reassess candicady for discharge today after troponin back. Admission and Anticipated Discharge Date Admission Date: July 03, 2021 Subjective Patient seen in follow up. Angina resolve post cardiac catheterization. Fatigue improved this am. Telemetry reveals SR with LBBB in the 70s without arrhythmia. Review of Systems Review of Systems: All systems reviewed & are unremarkable except as noted in HPI & below Physical Exam Physical Exam: Temp Pulse Resp BP Pulse Ox 36.8 C 70 18 116/74 93 07/04/21 07:49 07/04/21 07:49 07/04/21 07:49 07/04/21 07:49 07/04/21 07:49 Constitutional: WD/WN, vitals as above Respiratory: normal respiratory effort, lungs clear to auscultation Cardiovascular: RRR, no murmur, no edema Right radial access without hematoma. Gastrointestinal (Abdomen): normal bowel sounds, soft, nontender, no hepatosplenomegaly Neurologic: PERRL, EOMI, accommodation nl, no face palsy, no dysarthria Results & Data ([facility] [place]) Vital Signs (Past 12 Hours) Vital Signs Temp Pulse Pulse Resp BP Pulse Ox 07/04/21 07:49 36.8 C 71 70 18 116/74 93 07/04/21 03:36 36.7 C 63 18 95/63 L 93 07/03/21 23:59 80 07/03/21 22:53 37.1 C 74 18 101/66 95 Laboratory Results Cardiac Enzymes 07/03/21 07/04/21 Range/Units 11:59 07:03 Troponin I 0.279 H* 35.000 H* (0-0.045) ng/ml CBC 07/04/21 Range/Units 07:03 WBC 8.91 (4.8-10.8) K/uL RBC 3.79 L (4.2-5.4) M/uL Hgb 11.5 L (12.0-16.0) g/dL Hct 35.3 L (37-47) % Plt Count 345 (130-400) K/uL Comprehensive Metabolic Panel 07/04/21 Range/Units 07:03 Sodium 143 (136-145) mmol/L Potassium 3.4 L (3.5-5.1) mmol/L Chloride 112 H (98-107) mmol/L Carbon Dioxide 25 (21-32) mmol/L BUN 11 (7-18) mg/dl Creatinine 0.97 (0.6-1.2) mg/dl Glucose 91 (70-99) mg/dl Calcium 8.5 (8.5-10.1) mg/dl Intake and Output 07/03/21 07/04/21 07/04/21 22:59 06:59 14:59 Intake Total 840.000 / 1540.000 200 / 1540.000 Balance 840.000 / 1540.000 200 / 1540.000 Intake: IV 720.000 / 1220.000 Sodium Chloride 0.9% 500 ml @ 720.000 / 720.000 100 mls/hr IV .Q5H PRASHANT Rx#: [id number] Oral 120 / 320 200 / 320 Other: # Unmeasured Voids 1 1 Weight 87.997 kg 86 kg Weight Measurement Method Built in [employer] Built in [facility] ECG Additional Comments: ECG performed 07/04/21 reveals SR at 70 with LBBB, without significant new repolarization changes.
--- NOTE | 2021-07-04 12:07 | Communication Note ---
Date of Service: July 04, 2021 I called and updated her daughter, Ruth, mobile number [phone].
--- NOTE | 2021-07-04 13:15 | Electrocardiogram Report ---
Test Reason : Blood Pressure : / mmHG Vent. Rate : 074 BPM Atrial Rate : 074 BPM P-R Int : 140 ms QRS Dur : 130 ms QT Int : 434 ms P-R-T Axes : 013 097 -69 degrees QTc Int : 481 ms Normal sinus rhythm Possible Left atrial enlargement Rightward axis Left bundle branch block Abnormal ECG When compared with ECG of 21-MAY-2021 09:57, No significant change Confirmed by Nadeem Cordova ([id number]) on 07/04/2021 1:15:01 PM Referred By: REFERRED SELF Confirmed By:Nadeem Cordova
--- NOTE | 2021-07-04 13:18 | Electrocardiogram Report ---
Test Reason : Blood Pressure : / mmHG Vent. Rate : 090 BPM Atrial Rate : 090 BPM P-R Int : 140 ms QRS Dur : 126 ms QT Int : 418 ms P-R-T Axes : 050 -32 141 degrees QTc Int : 511 ms Normal sinus rhythm Left axis deviation Left bundle branch block Abnormal ECG When compared with ECG of 03-JUL-2021 05:10, QRS axis Shifted left Confirmed by Nadeem Cordova ([id number]) on 07/04/2021 1:17:34 PM Referred By: REFERRED SELF Confirmed By:Nadeem Cordova
--- NOTE | 2021-07-04 13:24 | Electrocardiogram Report ---
Test Reason : Blood Pressure : / mmHG Vent. Rate : 068 BPM Atrial Rate : 068 BPM P-R Int : 140 ms QRS Dur : 130 ms QT Int : 464 ms P-R-T Axes : 052 -34 113 degrees QTc Int : 493 ms Normal sinus rhythm Left axis deviation Left bundle branch block Abnormal ECG When compared with ECG of 03-JUL-2021 06:02, No significant change Confirmed by Nadeem Cordova ([id number]) on 07/04/2021 1:24:08 PM Referred By: REFERRED SELF Confirmed By:Nadeem Cordova
--- NOTE | 2021-07-04 13:25 | Electrocardiogram Report ---
Test Reason : Blood Pressure : / mmHG Vent. Rate : 069 BPM Atrial Rate : 069 BPM P-R Int : 148 ms QRS Dur : 128 ms QT Int : 490 ms P-R-T Axes : 042 -38 048 degrees QTc Int : 525 ms Normal sinus rhythm Possible Left atrial enlargement Left axis deviation Left bundle branch block Abnormal ECG When compared with ECG of 03-JUL-2021 06:18, No significant change Confirmed by Nadeem Cordova ([id number]) on 07/04/2021 1:24:49 PM Referred By: REFERRED SELF Confirmed By:Nadeem Cordova
[2021-07-04] MEDS ORDERED: CLOPIDOGREL BISULFATE 75 MG TAB PO SCH (14:00)
[2021-07-04] MEDS: ENOXAPARIN INJ 40 MG/0.4 ML SYR SQ SCH (15:51)
--- NOTE | 2021-07-04 16:18 | Hospitalist Progress Note ---
Date of Service July 04, 2021 Assessment & Plan (1) NSTEMI (non-ST elevated myocardial infarction): Plan: - S/P Cardiac Catheterization on 07/[address] Fraga -- PCI of mid to distal circumflex - ASA 81 mg daily and Plavix 75 mg daily x 6 months - Has been intolerant to statin therapy in the past - states she has tried about 3 but wasn't sure which ones - is willing to try a statin again if it won't cause pain - Cardiology following - discussed with Dr. Gifford - appreciate input (2) Elevated d-dimer: Plan: - Elevated at 1310 - not hypoxic, no tachycardia, no fever, no pleuritic CP -- Unlikely PE however new diagnosis of malignancy and reports mother had multiple blood clots; FMHx lists Factor V for a sister but she is not sure of this - Symptoms have completely resolved with catheterization (3) B-cell lymphoma: Plan: - New diagnosis - completed lymph node biopsy earlier this month with confirmation; had bone marrow biopsy on - Due to F/U with Dr. Osorio in approx. 2 weeks to get established care (4) Chronic pain: Plan: - Hold Meloxicam given ASA/Plavix; Continue Tramadol - normally takes BID (5) GERD (gastroesophageal reflux disease): Plan: - Protonix daily as interchange for Dexilant (6) HTN (hypertension), benign: Plan: - Intermittent lower pressures but mentation is appropriate with no dizziness - has been resting through the day and will monitor - Continue Amlodipine 2.5 mg daily (7) Hyperlipidemia: Plan: - Statin intolerant due to muscle aches - May benefit from a different med vs lower dose instead of avoidance altogether - Hold home Zetia 10 mg daily in favor of statin and will discuss with cardiology Plan: - Monitor in PCU - trend trops - anticipate D/C tomorrow Admission and Anticipated Discharge Date Admission Date: July 03, 2021 Subjective Reports feeling well today. No further chest pain. Tolerating a diet. Verbalizes no new complaints Review of Systems Review of Systems: REVIEW OF SYSTEMS General/Constitutional: Denies fever/chills Cardiovascular: Denies chest pain; Denies palpitations, edema Respiratory: Denies cough, sputum, SOB, wheezing, orthopnea GI: Denies nausea, vomiting, abdominal pain, constipation, diarrhea : Denies dysuria Musculoskeletal: Denies joint/muscle aches, weakness, swelling Neurologic: Denies dizziness/lightheadedness Skin: Denies rash Physical Exam Physical Exam: PHYSICAL EXAM General Appearance: WDWN in NAD who is A&O x 3 HEENT: Head is normocephalic/atraumatic; Hearing grossly intact; Mucous membranes moist Neck: Supple; Trachea midline; Neg JVD Heart: RRR with no M/G/R Lungs: CTA in all lung bruno bilaterally; Respirations unlabored; Neg accessory muscle use Abdomen: Soft, non-tender, non-distended; Positive BS x 4 quadrants Extremities: Neg cyanosis or edema Neurological: Speech clear; Gross motor/sensory function intact; Neg focal neurologic deficits Psychiatric: Appropriate mood/affect Skin: Normal Color; Warm/Dry Results & Data Results & Data ([facility]) Vital Signs (Past 12 Hours) Vital Signs Temp Pulse Pulse Resp BP Pulse Ox 07/04/21 15:32 37.0 C 67 18 97/52 L 67 L 07/04/21 12:14 36.8 C 82 18 117/76 91 07/04/21 07:49 36.8 C 71 70 18 116/74 93 PG Care Time/CCT Total # of Minutes Spent Total Time Spent with Patient: Total time spent is greater than 50% in coordination of care (as documented) at patient's floor/unit and/or counseling patient: Coding Level of Care Code 20306 Subseq Hosp Care Lvl 2 Diagnoses NSTEMI (non-ST elevated myocardial infarction) I21.4 Elevated d-dimer R79.89 B-cell lymphoma C85.10 Chronic pain G89.29 GERD (gastroesophageal reflux disease) K21.9 Esophagitis presence: without esophagitis HTN (hypertension), benign I10 Hyperlipidemia E78.5 (1) GERD (gastroesophageal reflux disease) Esophagitis presence: without esophagitis Qualified Code(s): K21.9 - Gastro- esophageal reflux disease without esophagitis
--- NOTE | 2021-07-04 21:47 | Electrocardiogram Report ---
Test Reason : Blood Pressure : / mmHG Vent. Rate : 072 BPM Atrial Rate : 072 BPM P-R Int : 144 ms QRS Dur : 134 ms QT Int : 464 ms P-R-T Axes : 031 -32 141 degrees QTc Int : 508 ms Normal sinus rhythm Left axis deviation Left bundle branch block Abnormal ECG When compared with ECG of 03-JUL-2021 08:12, No significant change Confirmed by Nadeem Cordova ([id number]) on 07/04/2021 9:46:50 PM Referred By: REFERRED SELF Confirmed By:Nadeem Cordova
--- NOTE | 2021-07-04 21:51 | Electrocardiogram Report ---
Test Reason : Blood Pressure : / mmHG Vent. Rate : 053 BPM Atrial Rate : 053 BPM P-R Int : 144 ms QRS Dur : 134 ms QT Int : 516 ms P-R-T Axes : 041 -36 102 degrees QTc Int : 484 ms Sinus bradycardia Left axis deviation Left bundle branch block Abnormal ECG When compared with ECG of 03-JUL-2021 13:27, No significant change was found Confirmed by Nadeem Cordova ([id number]) on 07/04/2021 9:51:19 PM Referred By: REFERRED SELF Confirmed By:Nadeem Cordova
--- NOTE | 2021-07-05 05:32 | Electrocardiogram Report ---
Test Reason : Blood Pressure : / mmHG Vent. Rate : 070 BPM Atrial Rate : 070 BPM P-R Int : 142 ms QRS Dur : 134 ms QT Int : 472 ms P-R-T Axes : 036 -29 115 degrees QTc Int : 509 ms Normal sinus rhythm Left bundle branch block Abnormal ECG When compared with ECG of 03-JUL-2021 14:30, No significant change Confirmed by Nadeem Cordova ([id number]) on 07/05/2021 5:32:26 AM Referred By: REFERRED SELF Confirmed By:Nadeem Cordova
[2021-07-05 06:50] LABS: BUN Creatinine Ratio 10.8 (10-20); Calcium 8.2 mg/dl (8.5-10.1); Est GFR (African American) 65.3 ml/min; Est GFR (Non-African American) 56.3 ml/min; Potassium 3.8 mmol/L (3.5-5.1)
[2021-07-05 06:55] LABS: Troponin I 22.1 ng/ml (0-0.045)
[2021-07-05] MEDS: PANTOprazole 40 MG TAB PO SCH (08:04)
[2021-07-05] MEDS: ATORVASTATIN 40 MG TAB PO SCH (08:04)
[2021-07-05] MEDS: amLODIPine BESYLATE 5 MG TAB PO SCH (08:04)
[2021-07-05] MEDS: ASPIRIN 81 MG ECTAB PO SCH (08:04)
--- NOTE | 2021-07-05 10:40 | Cardiology Progress Note ---
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 Mild nonculprit coronary artery disease Diffuse proximal LAD up to 30%, 40% mid LAD at takeoff of small D3 for which medial management recommended. Continue ASA, Plavix.Lifelong ASA. Plavix x at least 1 year. Not on beta jocelyne due to LBBB, baseline HR in 60s. Not on BENJIE / ARB as outpatient as BP well controlled, and no clinical CHF. I am hesitant to discontinue her chronic amlodipine, as it is likely providing antianginal benefit. Troponin has trended down. No concerning arrhythmias. (2) Bundle branch block, left: As noted, Chronic, dating back to 2017. Normal LVEF on repeat echo am of 07/04. No new regional wall motion abnormalities. (3) Hypokalemia: Resolved. (4) HTN (hypertension): Continue amlodipine. (5) Hyperlipidemia: Discharge on atorvastatin 40 mg daily. OK to discontinue Ezetimibe (replace with atorvastatin) (6) B-cell lymphoma of lymph nodes of neck: s/p recent lymph node biopsy. Continue outpatient treatment If port necessary, would need to be performed on uninterrupted ASA and clopidogrel. DISPOSITION: -Stable for discharge to home, 07/05. Keep follow up visit with Dr Gifford at [facility] as scheduled on 07/11/21 at 1130 am. Admission and Anticipated Discharge Date Admission Date: July 04, 2021 Subjective Patient seen in follow up. No complaints. Denies angina. Walked in hallway yesterday without difficulty. Telemetry reveals SR in th 60s to 70s. Review of Systems Review of Systems: All systems reviewed & are unremarkable except as noted in HPI & below Physical Exam Physical Exam: Temp Pulse Resp BP Pulse Ox 36.8 C 68 17 121/77 94 07/05/21 07:52 07/05/21 07:52 07/05/21 07:52 07/05/21 07:52 07/05/21 07:52 Constitutional: WD/WN, vitals as above Respiratory: normal respiratory effort, lungs clear to auscultation Cardiovascular: RRR, no murmur, no edema Gastrointestinal (Abdomen): normal bowel sounds, soft, nontender, no hepatosplenomegaly Neurologic: PERRL, EOMI, accommodation nl, no face palsy, no dysarthria Results & Data ([facility]) Vital Signs (Past 12 Hours) Vital Signs Temp Pulse Pulse Resp BP Pulse Ox 07/05/21 07:52 36.8 C 68 17 121/77 94 07/05/21 07:00 67 07/05/21 04:10 36.7 C 67 12 112/63 93 07/05/21 00:00 65 07/04/21 23:33 36.9 C 70 18 99/64 L 91 Laboratory Results Cardiac Enzymes 07/04/21 07/05/21 Range/Units 13:41 05:49 Troponin I 23.000 H* 22.100 H* (0-0.045) ng/ml Comprehensive Metabolic Panel 07/05/21 Range/Units 05:49 Sodium 141 (136-145) mmol/L Potassium 3.8 (3.5-5.1) mmol/L Chloride 110 H (98-107) mmol/L Carbon Dioxide 28 (21-32) mmol/L BUN 10 (7-18) mg/dl Creatinine 0.97 (0.6-1.2) mg/dl Glucose 91 (70-99) mg/dl Calcium 8.2 L (8.5-10.1) mg/dl Intake and Output 07/04/21 07/05/21 07/05/21 22:59 06:59 14:59 Intake Total 100 / 870 520 / 870 Balance 100 / 0 520 / 870 Intake: Oral 0 520 / 870 Other: # Unmeasured Voids 0 Weight 87 kg Weight Measurement Method Built in [facility]
[2021-07-05] MEDS ORDERED: INFLUENZA VACCINE HIGH DOSE PF 65+ 0.7 ML SYR IM ONE (12:00)
--- NOTE | 2021-07-05 15:22 | Discharge Summary ---
Date of Service July 05, 2021 Admission HPI Per Admitting Provider Ms. Hagan is a 76F with PMHx of LBBB, HLD - Statin Intolerant, GERD, Esophageal Dysmotility, HTN, and B Cell Lymphoma who presents to the ED due to chest pain that started around 0300. Pt reports the pain woke her from her sleep and has remained in the mid-sternal area. On initial evaluation she stated it was just pain and had difficulty describing the pain. She rated it a 5/10. States nothing made the pain worse but was slightly relieved with sitting up. She states she has had similar feelings like this in the past but typically doesn't last this long. No change in diet recently. Occasionally was having a heartburn type sensation. She attempted NTG cream but felt funny with it. Her D- Dimer was elevated but no hypoxia, tachycardia, fever, or pleuritic chest pain. She was recently diagnosed with B Cell Lymphoma and is due to see Dr. Osorio in approximately 2 weeks. GI medications did not improve symptoms. She has a chronic LBBB on EKG making acute ischemic changes more difficult to interpret. Her repeat troponin was elevated at 0.279. Discussed the case with Dr. Gifford who recommends more emergent evaluation and triggered a heart alert. Patient is now S/P stent to circumflex. Principal Diagnosis NSTEMI Discharge Exam PHYSICAL EXAM General Appearance: WDWN in NAD who is A&O x 3 HEENT: Head is normocephalic/atraumatic; Hearing grossly intact; Mucous membranes moist Neck: Supple; Trachea midline; Neg JVD Heart: RRR with no M/G/R Lungs: CTA in all lung bruno bilaterally; Respirations unlabored; Neg accessory muscle use Abdomen: Soft, non-tender, non-distended; Positive BS x 4 quadrants Extremities: Neg cyanosis or edema; cath site on R wrist without bleeding Neurological: Speech clear; Gross motor/sensory function intact; Neg focal neurologic deficits Psychiatric: Appropriate mood/affect Skin: Normal Color; Warm/Dry Discharge Data Allergies Allergy/AdvReac Type Severity Reaction Status Date / Time hornet venom Allergy Severe Anaphylaxis Verified 07/03/21 07:50 venom-wasp Allergy Severe Anaphylaxis Verified 07/03/21 07:50 Sulfa (Sulfonamide Allergy Intermediate Hives Verified 07/03/21 07:50 Antibiotics) adhesive Allergy Mild Rash Verified 07/03/21 07:50 codeine Allergy Mild Rash Verified 07/03/21 07:50 diclofenac Allergy Unknown Unknown Verified 07/03/21 07:50 famotidine Allergy Unknown Unknown Verified 07/03/21 07:50 morphine Allergy Unknown Unknown Verified 07/03/21 07:50 nitroglycerin Allergy Verified 07/09/21 10:05 ibuprofen AdvReac Intermediate "Skin Verified 07/03/21 07:50 crawling" [id number]-Afy-Pqk Reductase AdvReac Intermediate Muscle Verified 07/03/21 07:50 Inhibitor aches Consultations 07/03/21 07:15 ED Decision to Admit Stat 07/03/21 12:46 Consult Cardiology Routine 07/03/21 14:28 Consult Cardiac Rehabilitation Routine Procedures Performed Operation Date: 07/03/21 13:30 Actual Procedures p Aspiration/PCI w/ASH for Stemi - Montez Fraga MD s Cath, Left with Cors and Vent - Montez Fraga MD s Cineradiography w/Routine Exam - Montez Fraga MD Ordered Studies 07/03/21 13:23 CL Cath Imgs for PACS use only Routine Hospital Course (1) NSTEMI (non-ST elevated myocardial infarction): - S/P Cardiac Catheterization on 07/[address] Fraga -- PCI of mid to distal circumflex - ASA 81 mg daily and Plavix 75 mg daily x 1 year then lifelong ASA - Has been intolerant to statin therapy in the past - states she has tried about 3 but wasn't sure which ones - is willing to try a statin again if it won't cause pain - Cardiology following - discussed with Dr. Gifford - follow-up planned for 11 July -- Not on beta jocelyne due to LBBB; no BENJIE/ARB as BP is controlled and no clinical CHF -- Repeat echo on 07/04 without new regional wall motion abnormalities . (2) B-cell lymphoma: - New diagnosis - completed lymph node biopsy earlier this month with confirmation; had bone marrow biopsy on - Due to F/U with Dr. Osorio in approx. 2 weeks to get established care - Per cardiology note - if port line placement is needed will have to perform without stopping antiplatelet therapy (3) Chronic pain: - Hold Meloxicam given ASA/Plavix; Continue Tramadol - normally takes BID (4) GERD (gastroesophageal reflux disease): - Continue Dexilant (5) HTN (hypertension), benign: - STABLE - Continue Amlodipine 2.5 mg daily (6) Hyperlipidemia: - Statin intolerant due to muscle aches - So far has tolerated Atorvastatin here - will stop Zetia and continue Atorvastatin Total Time Total Time Spent Total Time Spent (In Minutes): Spent greater than 30 minutes preparing patient for discharge. This includes discussion with patient/family, assessment, intervention, medication reconciliation, and coordination of care. Discharge Plan Discharge Items Patient Disposition: Home - Self-Care Reason For Visit: CHEST PAIN Discharge Diagnosis: NSTEMI (Non-ST Elevation Heart Attack) Activity: Per Instructions section Non-emergency contact: Primary Care Provider and [employer] Truck [employer] Call non-emergency contact if: you have any medication questions Follow-up/Referrals: Mitra Santzio MD [Primary Care Provider] - Flaco Gifford DO [Class [employer] Truck Driver] - 07/11/21 11:30 am (Please follow up with Dr. Gifford on Friday07/11/21 at 11:30 am. Please arrive to the office at 11:15 am for your appointment. If you are unable to keep this appointment, please call the office to reschedule at [phone].) Diet: Heart Healthy Addtl Attending Provider Instructions: NSTEMI (non-ST elevated myocardial infarction): - You were admitted for a heart attack. You had a heart catheterization with Dr. Fraga and he placed a stent in your one heart vessel called the circumflex. - You will need to take both a baby aspirin (81 mg daily) and Plavix 75 mg daily for at least one year. Then you will likely stay on aspirin lifelong -- You will continue to follow with cardiology who will continue your treatment plan as deemed necessary - It is recommended that you take a statin or a cholesterol medication. You did have a couple doses of Atorvastatin here in the hospital. -- Recommend to stop the Zetia in favor of the Atorvastatin at this time. If you develop muscle aches please talk with your heart doctor. - Please follow the instructions provided in regards to activities after heart catheterization - You have a doctor appointment with Dr. Gifford on July 11 at 1130 B-Cell Lymphoma: - Please keep your appointment with the cancer center to discuss your treatment plan. They may want to adjust their plans while you are recovering from this. Chronic Pain: - Would recommend stopping Meloxicam given that you are on aspirin and plavix. As multiple medications could increase your risk of stomach ulcers or GI bleeding - You can continue the Tramadol and consider Tylenol as an alternative for mild pain. 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 ACTIVITY RECOMMENDATIONS: Excess manipulation of the wrist should be avoided for the next 24-48 hours. * No lifting over 2 pounds (approximately a 1/2 gallon of milk) with the utilized arm for 24 hours. * No strenuous activity such as bowling or tennis for 3 days. * Keep the site of the procedure covered with a bandage for 24 hours. *You may shower the day after the procedure. Do not take a tub bath or submerge the puncture site in water for the next 3 days. *Do not operate any motorized equipment for 3 days. SPECIAL CARE INSTRUCTIONS: The site may be slightly bruised and sore following your procedure. Should any of the following occur, contact the Dr. who performed your procedure. 1. Redness/inflammation, swelling, chills, or fever, or colored drainage at procedure site within 3-7 days after your procedure. 2. Coldness, discoloration, ongoing numbness, severe pain, or swelling. Expect mild tingling of hand and tenderness at the puncture site for up to three days. If this persists beyond three days, or other symptoms develop, notify the Dr. who performed your procedure. BLEEDING: If the procedure site on your wrist begins to bleed, do not panic 1. Place 1 or 2 fingers firmly just slightly above the insertion site to stop the bleeding. You may be able to feel your pulse as you hold pressure. 2. Lift your finger after 5 minutes to see if the bleeding has stopped. 3. Once the bleeding has stopped, gently wipe the wrist area clean with a bandage. * If the bleeding from your wrist does not stop after 10 minutes, or if there is a large amount of bleeding or spurting, call 911 (do not drive yourself to the hospital). SKIN IRRITATION: * You may experience some redness and/or swelling in the area where radiation was administered. If any skin irritation occurs, please contact your family physician. FOLLOW UP VISIT: Keep any scheduled doctor appointments. Pending Studies at Discharge: No Stand-Alone Forms: My [facility], Smoking Cessation Medications and DC Order Prescriptions: New clopidogrel 75 mg Tablet 75 mg PO DAILY 30 Days Qty: 30 RF: 1 atorvastatin 40 mg Tablet 40 mg PO QAM 30 Days Qty: 30 RF: 0 aspirin 81 mg Tablet,Delayed Release (Dr/Ec) 81 mg PO QAM 30 Days Qty: 30 RF: 0 Continued potassium gluconate 595 mg (99 mg) tablet 99 mg PO QAM RF: 0 meclizine [Motion Sickness (meclizine)] 25 mg tablet 25 mg PO TID PRN (Reason: Vertigo) Qty: 30 RF: 0 epinephrine [EpiPen] 0.3 mg/0.3 mL auto-injector 0.3 mg subcut UD PRN (Reason: Anaphylaxis) Qty: 2 RF: 0 magnesium oxide [Carvaloh] 500 mg tablet 500 mg PO BID RF: 0 cyclobenzaprine 10 mg tablet 10 mg PO Q8H PRN (Reason: muscle spasm) RF: 0 cholecalciferol (vitamin D3) [Vitamin D3] 25 mcg (1,000 unit) Tablet 1,000 unit PO QAM RF: 0 zinc 50 mg Tablet 50 mg PO QAM RF: 0 One-A-Day Womens Formula 18 mg iron-400 mcg-500 mg Tablet 1 tab PO QAM RF: 0 clonazepam [Klonopin] 0.5 mg tablet 0.5 mg PO HS PRN (Reason: Sleep) RF: 0 lidocaine [Anecream] 4 % cream 1 applic topical TID PRN (Reason: pain) RF: 0 amlodipine [Norvasc] 2.5 mg tablet 2.5 mg PO QAM RF: 0 Dexilant 60 mg capsule,biphase delayed releas 60 mg PO QAM RF: 0 Discontinued meloxicam [Mobic] 7.5 mg tablet 7.5 mg PO QAM RF: 0 ezetimibe 10 mg tablet 10 mg PO DAILY RF: 0 No Action tramadol [Ultram] 50 mg tablet See Rx Instructions .ROUTE .COMPLEX Qty: 40 RF: 5 Discharge Orders: Discharge Order (Routine); Ordered 07/05/21 Ordered By: Chiquita Rubio/Other Patient Handouts: Warning Signs of a Heart Attack Admission Data Admit Date/Time: 09/29/21 16:25 Attending Provider: Wily Randolph Admit Provider: Wily Randolph Primary Care Provider: Mitra Santizo Other Providers: Wily Randolph ; Flaco Gifford Other Interventions: Discharge Summary Assessment (RN) Last Done: 07/05/21 12:45 Supervising Physician Co-Signing Physician Notes Attending note: patient seen and examined with Chiquita Prado PA-C. I agree with her discharge summary. I personally reviewed the labs and imaging findings. patient chest pain free since cardiac cath, vitals stable, ambulation without angina, eating well, breathing comfortably troponin trending down echo without any new regional wall motion changes - NSTEMI: presented with chest pain/pressure at rest, initial troponin was negative but repeat at 6 hours was up to 0.2 EKG difficult to interpret as she has chronic LBBB cardiology consulted in the ED, called heart alert due to ongoing pain and troponin rising cath shows mid/distal left circumflex with occlusion, treated with ASH, tolerated well no chest pain for two days, vitals stable discharge on aspirin/Plavix x 1 year then lifelong aspirin Atorvastatin BP and HR stable without beta jocelyne or BENJIE inhibitor follow up closely with [facility] cardiology Coding Level of Care Code D/C DAY MANAGEMENT >30 MINS Diagnoses NSTEMI (non-ST elevated myocardial infarction) I21.4 B-cell lymphoma C85.10 Chronic pain G89.29 GERD (gastroesophageal reflux disease) K21.9 Esophagitis presence: without esophagitis HTN (hypertension), benign I10 Hyperlipidemia E78.5
== END 2021-07-05 13:29 | disposition home or self-care (01) | DRG 247 ==
LOC: ED 05:02 → EDINP 05:02 → 2S 15:21
DX: E87.6 Hypokalemia; E78.5 Hyperlipidemia, unspecified; Z87.891 Personal history of nicotine dependence; C83.01 Small cell B-cell lymphoma, lymph nodes of head, face, and neck; Z88.5 Allergy status to narcotic agent; Z88.8 Allergy status to other drugs, medicaments and biological substances; I44.7 Left bundle-branch block, unspecified; K21.9 Gastro-esophageal reflux disease without esophagitis; I10 Essential (primary) hypertension; I21.4 Non-ST elevation (NSTEMI) myocardial infarction; I25.10 Atherosclerotic heart disease of native coronary artery without angina pectoris; Z88.6 Allergy status to analgesic agent; C85.10 Unspecified B-cell lymphoma, unspecified site

== ENCOUNTER 2023-05-05 08:58 | Inpatient (IN) ==
[2023-05-05] MEDS ORDERED: SODIUM CHLORIDE 0.9% 500 ML IV SCH (09:45)
[2023-05-05 09:57] LABS: Basophils # (auto) 0.05 K/uL (0-0.2); Basophils % (auto) 0.8 %; Eosinophils # (auto) 0.22 K/uL (0-0.50); Eosinophils % (auto) 3.5 %; Hematocrit (blood only) 39.7 % (37.0-47.0); Hemoglobin 12.9 g/dl (12.0-16.0); Immature Granulocytes # (auto) 0.02 K/uL (0.01-0.20); Immature Granulocytes % (auto) 0.3 %; Lymphocytes # (auto) 0.89 K/uL (1.2-3.4); Lymphocytes % (auto) 14.2 %; Mean Corpuscular Hemoglobin 28.7 pg (25.0-34.0); Mean Corpuscular Hgb Conc 32.5 g/dL (32.0-36.0); Mean Corpuscular Volume 88.2 fL (80.0-100.0); Mean Platelet Volume 10.1 fL (9.4-12.4); Monocytes # (auto) 0.79 K/uL (0.11-0.59); Monocytes % (auto) 12.6 %; Neutrophils # (auto) 4.29 K/uL (1.40-6.50); Neutrophils % (auto) 68.6 %; Platelet Count 343 K/uL (130-400); RDW Coefficient of Variation 17.4 % (11.5-14.5); RDW Standard Deviation 54.7 fL (36.4-46.3); White Blood Count 6.26 K/ul (4.8-10.8)
[2023-05-05 10:15] LABS: Alanine Aminotransferase 12 U/L (7-52); Albumin Globulin Ratio 1.5 (0.9-2); Albumin Level 4.4 gm/dl (3.4-5.0); Alkaline Phosphatase 62 U/L (34-104); Anion Gap 10 (3-11); Aspartate Aminotransferase 15 U/L (13-39); BUN Creatinine Ratio 14.3 (10-20); Bilirubin,Total 0.4 mg/dl (0.2-1.0); Blood Urea Nitrogen 14 mg/dl (6-23); C Reactive Protein < 0.50 mg/dl (0-0.5); Calcium 9.6 mg/dl (8.6-10.3); Carbon Dioxide 27 mmol/L (21-32); Chloride 105 mmol/L (98-107); Creatinine Clr Calc Pharmacy 53.6 ml/min; Est GFR (Non-African American) 55.3 ml/min; Globulin 2.9 gm/dl (2.5-4.0); Glucose 100 mg/dl (70-99(Fasting)); Potassium 3.7 mmol/L (3.5-5.1); Sodium 142 mmol/L (136-145); Total Protein 7.3 gm/dl (6.0-8.3)
[2023-05-05 10:40] LABS: Lyme Ab IgG w/WB Rflx Negative (Negative); Lyme Ab IgM w/WB Rflx Negative (Negative)
[2023-05-05] MEDS ORDERED: ONDANSETRON INJ 2 MG/ML 2 ML VIAL IV STA (10:47)
[2023-05-05] MEDS: HYDROmorphone INJ 0.5 MG/0.5 ML SYR IV PRN ×3 (10:57→20:25)
--- NOTE | 2023-05-05 11:26 | Emergency Department Note ---
Impression & Plan Headache ED Provider Note INFORMANT: Patient ED PROVIDER(S): Roman Hui MD CHIEF COMPLAINT: Headache PLAN: Disposition: Admitted Condition: Good Outpatient prescription management: none Referral: None MEDICAL DECISION MAKING: Patient presented because of headache. Symptoms have been persistent. No relief with prior ER visit (Reglan, Benadryl, Ativan) as well as the primary care visit receiving Solu-Medrol, Fioricet, and cyclobenzaprine. Patient had an IV established. Blood work obtained. Her CBC, chemistry panel, ESR, CRP, procalcitonin were normal. Lyme testing negative. Discussed prior imaging with radiologist and no abnormalities noted. Discussed MR imaging and with and without contrast recommended. MRI performed and did not reveal any acute find ings. Patient's headache was still present despite 2 doses of Dilaudid. Placed a consult with Dr. Kelley of neurology. Discussed the patient's history, prior visit and response, or lack thereof to treatment. He recommended doing a dose of IV Depakote 500 mg. We discussed IV Toradol but the patient has an allergy to diclofenac and states that she does not feel good with oral ibuprofen. Patient was given a dose of IV Decadron. His thought was oral Depakote 250 mg daily for 5 days with methocarbamol 750 mg twice daily for 5 days would be a reasonable course to try and treat her symptoms. Patient was reassessed and after receiving the Decadron and half of the IV valproate she was still symp tomatic. Patient was reassessed and is still having the same symptoms. Given her persistent headache with no resolution despite all the IV doses of medications received last visit and today I feel that she should be further evaluated in the hospital. Patient in agreement. Consultation was made with Dr. Aashish Porras of the [facility] service. Case discussed and diagnostics were reviewed. Patient was evaluated in the ER for further management. After review of the information above and other included data, I feel the patient requires further management in the hospital. Discussed with retail business development manager. Triage Nursing notes reviewed and agree them. Vital Signs: reviewed and remarkable for no significant abnormalities Prior /Outside records reviewed: Primary care record reviewed. Differential diagnosis: Migraine headache, meningitis, sinusitis, CO exposure, ICH, SAH, infection, tumor, headache, sinus thrombosis, arterial dissection, as well as other pathologies. Diagnostics, as interpreted by me: ECG: none Cardiac Monitoring: Cardiac monitoring ordered by me: The patient was placed on continuous cardiac monitoring and observed. It revealed a normal sinus rhythm at 69 beats per minute without ectopy or evidence of dysrhythmia. Medical decision rules: none Imaging studies: MR imaging was negative for acute process. I refer you to the EMR for further details. HPI: The patient is a 77 year old female who presents to the Emergency Room with complaints of headache. This started a week ago and is persisting. The patient also notes the following associated symptoms, neck pain. The patient has tried an ED visit as well as primary care visit for relieving factors. Current pain is rated as pain is a 6/10. The patient notes patient received pain medication during her ED visit. CT angiography done and was negative. Primary care visit patient received Solu-Medrol as well as Fioricet and cyclobenzaprine. She notes no relief with those medications. Patient is also dealing with spinal stenosis in the lumbar region. She is currently on a fentanyl patch as well as hydro codone. No relief with those medications either. No trauma. Patient does note a history of lymphoma. Pt denies LOC, fevers, chills, diaphoresis, visual changes, chest pain, breathing difficulties, nausea, vomiting, abdominal pain, back pain, melena, hematochezia, urinary symptoms, numbness, weakness, lymphadenopathy, rash, or other complaints. PAST MEDICAL HISTORY: See Below, lymphoma PAST SURGICAL HISTORY: See Below, SOCIAL HISTORY: See Below, former smoker HOME MEDICATIONS: See Below ALLERGIES: See Below VITALS: See Below PHYSICAL EXAMINATION: GENERAL: Awake, alert, uncomfortable-appearing, in no distress HENT: Normocephalic, atraumatic. Oropharynx unremarkable. EYES: Normal conjunctiva. Sclera non-icteric. PERRLA. EOMI. NECK: Inspection normal. Non-tender. Supple. No nuchal rigidity. Somewhat limited ROM. No masses. RESPIRATORY: Clear to auscultation. No wheezes. No rales. Normal respiratory effort. CARDIAC: Normal rate. Normal rhythm. No murmurs. No rubs. Extremities warm and well perfused. Pulses equal. No JVD. GI: Soft, non-distended. No tenderness to palpation. No rebound or guarding. No masses. MUSCULOSKELETAL: Atraumatic. Chest examination reveals no tenderness. The back is symmetrical on inspection without obvious abnormality. There is no CVA tenderness to palpation. No joint edema. LOWER EXTREMITIES: Calves are equal size bilaterally and non-tender. No edema. N o discoloration. NEURO: Normal sensorium. No sensory or motor deficits noted. No drift. Normal rapid alternating movements. SKIN: No rash or jaundice noted. Past Med/Surg History Medical History Bundle branch block, left Degenerative disc disease Hyperlipidemia Hypokalemia Nerve pain Osteoarthritis Osteoporosis Surgical History H/O heart artery stent History of bilateral cataract extraction History of bilateral tubal ligation History of carpal tunnel release History of colonoscopy with polypectomy History of esophagogastroduodenoscopy (EGD) History of surgery Family History Father Colorectal cancer Mother Myocardial infarction Colorectal cancer Hearing loss Grandmother (Paternal) Stroke Sister Stroke Factor V Leiden mutation Daughter Family history of reaction to anesthesia Brother Myocardial infarction Sister Medical history unknown Son No problems noted. Son No problems noted. Son Ulcerative colitis Daughter No problems noted. Daughter No problems noted. Other Heart disease Denies family history of Ovarian cancer Prostate cancer Breast cancer Social History Smoking Status: Former smoker Tobacco Type: Cigarettes Cigarettes Per Day: 2 PPD x 10 yrs;Quit 1972; Second Hand Exposure: No; Do You Dip or Chew Tobacco: No; Hx Alcohol Use: No Hx Substance Use: No Preferred Language: Japanese Communication Ability: Effective Visual Impairment: No Limitations Hearing Ability: Normal Assistant To The President Required: No Beliefs That Will Affect Care: None marital status: / Current Living Situation: Alone current occupational status: retired current occupation: Many occupations How many Children do You have: 5 Feels Safe at Home: Yes Childhood Exposure to Second-Hand Smoke: Yes Diet: regular caffeine: Yes (1 cup/day) during the past year weight has: remained stable Dental Care, Regularly: Yes Physical Activity Frequency: Daily Physical Activity Frequency Comment: Daily housework, laundry, and minimal walking Seatbelt Use: always Sunscreen Use: No Allergies Allergies Allergy/AdvReac Type Severity Reaction Status Date / Time hornet venom Allergy Severe Anaphylaxis Verified 05/05/23 10:24 venom-wasp Allergy Severe Anaphylaxis Verified 05/05/23 10:24 Sulfa (Sulfonamide Allergy Intermediate Hives Verified 05/05/23 10:24 Antibiotics) adhesive Allergy Mild Rash Verified 05/05/23 10:24 codeine Allergy Mild Rash Verified 05/05/23 10:24 diclofenac Allergy Unknown Unknown Verified 05/05/23 10:24 famotidine Allergy Unknown Unknown Verified 05/05/23 10:24 morphine Allergy Unknown Unknown Verified 05/05/23 10:24 nitroglycerin Allergy Unknown Unknown Verified 05/05/23 10:24 ibuprofen AdvReac Intermediate "Skin Verified 05/05/23 10:24 crawling" Fwawhds-NEE-DnI Reductase AdvReac Intermediate Muscle Verified 05/05/23 10:24 Inhibitor aches [Lwjoagm-Xtl-Wbw Reductase Inhibitor] bendeka Allergy Severe pain Uncoded 05/05/23 10:24 Rituxmab Allergy Severe pain Uncoded 05/05/23 10:24 Home Meds Home Medications Medication Instructions Recorded Confirmed meclizine 25 mg tablet (Motion 25 mg PO TID PRN Vertigo #30 tabs 03/30/19 05/05/23 Sickness (meclizine)) potassium gluconate 595 mg (99 mg) 99 mg PO QAM 03/30/19 05/05/23 tablet amlodipine 2.5 mg tablet (Norvasc) 2.5 mg PO QAM 07/03/21 05/05/23 rosuvastatin 10 mg tablet 10 mg PO DAILY 07/25/22 05/05/23 aspirin 81 mg chewable tablet 81 mg PO DAILY 08/26/22 05/05/23 multivitamin 1 tab PO DAILY 08/26/22 05/05/23 dexlansoprazole 60 mg 60 mg PO QAM 10/07/22 05/05/23 capsule,biphase delayed release Previous Rx's Medication Instructions Recorded epinephrine 0.3 mg/0.3 mL 0.3 mg (0.3 mL) subcut UD PRN 02/18/22 injection, auto-injector (EpiPen) Anaphylaxis #2 ea lorazepam 0.5 mg tablet (Ativan) 0.5 mg PO BID PRN anxiety #45 tabs 10/14/22 clonazepam 0.5 mg tablet (Klonopin) 0.5 mg PO HS PRN Sleep #30 tabs 11/01/22 hydrocodone 5 mg-acetaminophen 325 1 tab PO Q6H PRN pain #60 tabs 04/15/23 mg tablet fentanyl 12 mcg/hr transdermal 12 mcg transdermal [id number] #10 ea 04/23/23 patch cyclobenzaprine 10 mg tablet 10 mg PO TID PRN muscle spasm #14 05/02/23 tabs Results & Data (ED) Vital Signs Vital Signs - 24 hr 05/05/23 09:05 05/05/23 09:29 05/05/23 10:09 Temperature 36.3 C L Temperature Source Temporal Artery Scan Pulse Rate 85 76 Pulse Rate [Right Finger] Pulse Rate from SpO2 Sensor Pulse Rhythm Regular Pulse Rhythm [Right Finger] Pulse Strength Normal Pulse Strength [Right Finger] Respiratory Rate 20 Respiratory Effort / Characteristics Non-Labored Spontaneous Respiratory Depth Normal Respiratory Pattern Regular Blood Pressure 138/87 Blood Pressure [Left Arm] Blood Pressure Mean 104 Blood Pressure Mean [Left Arm] Blood Pressure Position Sitting Blood Pressure Position [Left Arm] Pulse Oximetry 96 97 Oxygen Delivery Method Room Air Room Air Sepsis Recent Fever Within 48 Hours No Sepsis New/Unexplained Change in Mental Status No Sepsis Action Taken by Nursing No Action Required 05/05/23 09:28 05/05/23 09:30 05/05/23 10:00 Temperature Temperature Source Pulse Rate 74 79 80 Pulse Rate [Right Finger] Pulse Rate from SpO2 Sensor Pulse Rhythm Pulse Rhythm [Right Finger] Pulse Strength Pulse Strength [Right Finger] Respiratory Rate 19 16 20 Respiratory Effort / Characteristics Respiratory Depth Respiratory Pattern Blood Pressure Blood Pressure [Left Arm] Blood Pressure Mean Blood Pressure Mean [Left Arm] Blood Pressure Position Blood Pressure Position [Left Arm] Pulse Oximetry 97 Oxygen Delivery Method Sepsis Recent Fever Within 48 Hours Sepsis New/Unexplained Change in Mental Status Sepsis Action Taken by Nursing 05/05/23 10:30 05/05/23 10:30 05/05/23 11:00 Temperature Temperature Source Pulse Rate 69 68 Pulse Rate [Right Finger] Pulse Rate from SpO2 Sensor 68 Pulse Rhythm Pulse Rhythm [Right Finger] Pulse Strength Pulse Strength [Right Finger] Respiratory Rate 18 15 Respiratory Effort / Characteristics Respiratory Depth Respiratory Pattern Blood Pressure 135/71 Blood Pressure [Left Arm] Blood Pressure Mean 92 Blood Pressure Mean [Left Arm] Blood Pressure Position Blood Pressure Position [Left Arm] Pulse Oximetry 97 Oxygen Delivery Method Sepsis Recent Fever Within 48 Hours Sepsis New/Unexplained Change in Mental Status Sepsis Action Taken by Nursing 05/05/23 11:30 05/05/23 13:40 05/05/23 13:40 Temperature Temperature Source Pulse Rate 67 118 H Pulse Rate [Right Finger] Pulse Rate from SpO2 Sensor 68 68 Pulse Rhythm Pulse Rhythm [Right Finger] Pulse Strength Pulse Strength [Right Finger] Respiratory Rate 15 21 Respiratory Effort / Characteristics Respiratory Depth Respiratory Pattern Blood Pressure 110/85 Blood Pressure [Left Arm] Blood Pressure Mean 93 Blood Pressure Mean [Left Arm] Blood Pressure Position Blood Pressure Position [Left Arm] Pulse Oximetry 96 91 Oxygen Delivery Method Sepsis Recent Fever Within 48 Hours Sepsis New/Unexplained Change in Mental Status Sepsis Action Taken by Nursing 05/05/23 14:00 05/05/23 14:00 05/05/23 14:30 Temperature Temperature Source Pulse Rate 64 63 Pulse Rate [Right Finger] Pulse Rate from SpO2 Sensor 64 64 Pulse Rhythm Pulse Rhythm [Right Finger] Pulse Strength Pulse Strength [Right Finger] Respiratory Rate 12 12 Respiratory Effort / Characteristics Respiratory Depth Respiratory Pattern Blood Pressure 113/73 Blood Pressure [Left Arm] Blood Pressure Mean 86 Blood Pressure Mean [Left Arm] Blood Pressure Position Blood Pressure Position [Left Arm] Pulse Oximetry 96 98 Oxygen Delivery Method Sepsis Recent Fever Within 48 Hours Sepsis New/Unexplained Change in Mental Status Sepsis Action Taken by Nursing 05/05/23 14:31 05/05/23 14:31 05/05/23 15:00 Temperature Temperature Source Pulse Rate 64 Pulse Rate [Right Finger] 61 Pulse Rate from SpO2 Sensor 64 Pulse Rhythm Pulse Rhythm [Right Finger] Regular Pulse Strength Pulse Strength [Right Finger] Normal Respiratory Rate 21 18 Respiratory Effort / Characteristics Non-Labored Respiratory Depth Normal Respiratory Pattern Regular Blood Pressure 110/63 Blood Pressure [Left Arm] 129/73 Blood Pressure Mean 78 Blood Pressure Mean [Left Arm] 91 Blood Pressure Position Blood Pressure Position [Left Arm] Lying Pulse Oximetry 98 99 Oxygen Delivery Method Room Air Sepsis Recent Fever Within 48 Hours Sepsis New/Unexplained Change in Mental Status Sepsis Action Taken by Nursing 05/05/23 17:00 05/05/23 17:23 Temperature Temperature Source Pulse Rate 67 Pulse Rate [Right Finger] 69 Pulse Rate from SpO2 Sensor Pulse Rhythm Pulse Rhythm [Right Finger] Regular Pulse Strength Pulse Strength [Right Finger] Normal Respiratory Rate 18 Respiratory Effort / Characteristics Non-Labored Respiratory Depth Normal Respiratory Pattern Regular Blood Pressure Blood Pressure [Left Arm] 121/87 Blood Pressure Mean Blood Pressure Mean [Left Arm] 98 Blood Pressure Position Blood Pressure Position [Left Arm] Lying Pulse Oximetry 92 Oxygen Delivery Method Room Air Sepsis Recent Fever Within 48 Hours Sepsis New/Unexplained Change in Mental Status Sepsis Action Taken by Nursing Laboratory Data 05/05/23 09:28 05/05/23 09:28 Lab Results 05/05/23 05/05/23 05/05/23 Range/Units 09:28 09: 09:28 WBC 6.26 (4.8-10.8) K/ul RBC 4.50 (4.20-5.40) M/uL Hgb 12.9 (12.0-16.0) g/dl Hct 39.7 (37.0-47.0) % MCV 88.2 (80.0-100.0) fL MCH 28.7 (25.0-34.0) pg MCHC 32.5 (32.0-36.0) g/dL RDW Std Deviation 54.7 H (36.4-46.3) fL RDW Coeff of Deon 17.4 H (11.5-14.5) % Plt Count 343 (130-400) K/uL MPV 10.1 (9.4-12.4) fL Immature Gran % (Auto) 0.3 % Neut % (Auto) 68.6 % Lymph % (Auto) 14.2 % Stafford % (Auto) 12.6 % Eos % (Auto) 3.5 % Baso % (Auto) 0.8 % Neut # (Auto) 4.29 (1.40-6.50) K/uL Lymph # (Auto) 0.89 L (1.2-3.4) K/uL Stafford # (Auto) 0.79 H (0.11-0.59) K/uL Eos # (Auto) 0.22 (0-0.50) K/uL Baso # (Auto) 0.05 (0-0.2) K/uL Immature Gran # (Auto) 0.02 (0.01-0.20) K/uL ESR 15 (0-30) mm/hr Sodium 142 (136-145) mmol/L Potassium 3.7 (3.5-5.1) mmol/L Chloride 105 (98-107) mmol/L Carbon Dioxide 27 (21-32) mmol/L Anion Gap 10 (3-11) BUN 14 (6-23) mg/dl Creatinine 0.98 (0.6-1.2) mg/dl Est Cr Clr Drug Dosing 53.6 ml/min Est GFR ( Amer) 64.0 ml/min Est GFR (Non-Af Amer) 55.3 ml/min BUN/Creatinine Ratio 14.3 (10-20) Glucose 100 H (70-99(Fasting)) mg/dl Calcium 9.6 (8.6-10.3) mg/dl Total Bilirubin 0.4 (0.2-1.0) mg/dl AST 15 (13-39) U/L ALT 12 (7-52) U/L Alkaline Phosphatase 62 (34-104) U/L C-Reactive Protein < 0.50 (0-0.5) mg/dl Total Protein 7.3 (6.0-8.3) gm/dl Albumin 4.4 (3.4-5.0) gm/dl Globulin 2.9 (2.5-4.0) gm/dl Albumin/Globulin Ratio 1.5 (0.9-2) Procalcitonin (0-0.5) ng/ml Lyme Disease IgG Ab (Negative) Lyme Disease IgM Ab (Negative) 05/05/23 05/05/23 Range/Units 09:28 09:28 WBC (4.8-10.8) K/ul RBC (4.20-5.40) M/uL Hgb (12.0-16.0) g/dl Hct (37.0-47.0) % MCV (80.0-100.0) fL MCH (25.0-34.0) pg MCHC (32.0-36.0) g/dL RDW Std Deviation (36.4-46.3) fL RDW Coeff of Deon (11.5-14.5) % Plt Count (130-400) K/uL MPV (9.4-12.4) fL Immature Gran % (Auto) % Neut % (Auto) % Lymph % (Auto) % Stafford % (Auto) % Eos % (Auto) % Baso % (Auto) % Neut # (Auto) (1.40-6.50) K/uL Lymph # (Auto) (1.2-3.4) K/uL Stafford # (Auto) (0.11-0.59) K/uL Eos # (Auto) (0-0.50) K/uL Baso # (Auto) (0-0.2) K/uL Immature Gran # (Auto) (0.01-0.20) K/uL ESR (0-30) mm/hr Sodium (136-145) mmol/L Potassium (3.5-5.1) mmol/L Chloride (98-107) mmol/L Carbon Dioxide (21-32) mmol/L Anion Gap (3-11) BUN (6-23) mg/dl Creatinine (0.6-1.2) mg/dl Est Cr Clr Drug Dosing ml/min Est GFR ( Amer) ml/min Est GFR (Non-Af Amer) ml/min BUN/Creatinine Ratio (10-20) Glucose (70-99(Fasting)) mg/dl Calcium (8.6-10.3) mg/dl Total Bilirubin (0.2-1.0) mg/dl AST (13-39) U/L ALT (7-52) U/L Alkaline Phosphatase (34-104) U/L C-Reactive Protein (0-0.5) mg/dl Total Protein (6.0-8.3) gm/dl Albumin (3.4-5.0) gm/dl Globulin (2.5-4.0) gm/dl Albumin/Globulin Ratio (0.9-2) Procalcitonin < 0.05 (0-0.5) ng/ml Lyme Disease IgG Ab Negative (Negative) Lyme Disease IgM Ab Negative (Negative) Administered Medications Hydromorphone HCl (Hydromorphone Inj 0.5 Mg/0.5 Ml Syr) 0.5 mg IV Q15M PRN PRN Reason: Pain Stop: 05/19/23 10:46 Last Admin: 05/05/23 13:38 Dose: 0.5 mg Documented By: Admin: 05/05/23 10:57 Dose: 0.5 mg Documented By: HS Discontinued Medications Dexamethasone Sodium Phosphate (DexamethasonePf 10 Mg/Ml Vial) 10 mg IV NOW ONE Stop: 05/05/23 16:16 Last Admin: 05/05/23 17:09 Dose: 10 mg Documented By: RAJINDER Gadobutrol (Gadobutrol 65ml Vial) 9 ml IV ONCE ONE Stop: 05/05/23 12:54 Last Admin: 05/05/23 12:52 Dose: 9 ml Documented By: JOHN Sodium Chloride (Nss) 500 mls @ 999 mls/hr IV .Q31M PRASHANT Stop: 05/05/23 10:15 Last Infusion: 05/05/23 10:38 Dose: 0 mls/hr Documented By: Admin: 05/05/23 10:04 Dose: 999 mls/hr Documented By: GATO Valproic Acid 500 mg/ Dextrose 55 mls @ 55 mls/hr IV NOW STA Stop: 05/05/23 17:14 Last Admin: 05/05/23 17:09 Dose: 55 mls/hr Documented By: RAJINDER Ondansetron HCl (Ondansetron Inj 2 Mg/Ml 2 Ml Vial) 4 mg IV NOW STA Stop: 05/05/23 10:48 Last Admin: 05/05/23 10:57 Dose: 4 mg Documented By: GATO Imaging Data Radiologist's Impression: Brain MRI 05/05/23 11:27 MRI OF THE BRAIN WITHOUT AND WITH IV CONTRAST CLINICAL HISTORY: Headache, hx of lymphoma. COMPARISON STUDY: Head CT and CTA of the head May 01, 2023. TECHNIQUE: Utilizing a 1.5 Deann magnet and dedicated coil, multiplanar, multiecho imaging of the brain was performed pre and postcontrast administration. IV administration of 9 mL of Gadavist contrast was uneventful. Thin cut T1 post contrast imaging was performed. FINDINGS: There are no foci of restricted diffusion to suggest acute infarct. No acute intracranial hemorrhage, midline shift or mass effect is present. Ventricular system is normal. Basal cisterns are patent. There are extra-axial collections. Flow-voids for the major intracranial vessels are present. There is no intracranial mass or pathologic enhancement. White matter T2 hyperintense foci suggest moderate small vessel disease. Calvarial signal is normal. There is no evidence for sinusitis. There is no mastoid fluid. IMPRESSION: 1. No acute intracranial findings. 2. No intracranial mass or pathologic enhancement. 3. White matter T2 hyperintense foci suggestive of moderate small vessel disease. ACT 112: Negative or not required by law. Electronically signed by: Augustine Silver M.D. 05/05/2023 2:16 PM Discharge Plan Visit Data Chief Complaint: Headache Stated Complaint: HEADACHE ED Provider: Roman Hui Discharge Problem: Headache Forms Stand Alone Forms: My [facility] [employer] [place] Prescriptions Prescriptions: No Action aspirin 81 mg tablet,chewable 81 mg PO DAILY multivitamin Tablet 1 tab PO DAILY clonazepam [Klonopin] 0.5 mg tablet 0.5 mg PO HS PRN (Reason: Sleep) Qty: 30 0RF Rx Instructions: PDMP searched, okay to fill. hydrocodone-acetaminophen 5-325 mg tablet 1 tab PO Q6H PRN (Reason: pain) Qty: 60 0RF fentanyl 12 mcg/hr patch 72 hour 12 mcg transdermal CQ72HR Qty: 10 0RF potassium gluconate 595 mg (99 mg) tablet 99 mg PO QAM meclizine [Motion Sickness (meclizine)] 25 mg tablet 25 mg PO TID PRN (Reason: Vertigo) Qty: 30 epinephrine [EpiPen] 0.3 mg/0.3 mL auto-injector 0.3 mg subcut UD PRN (Reason: Anaphylaxis) Qty: 2 2RF lorazepam [Ativan] 0.5 mg tablet 0.5 mg PO BID PRN (Reason: anxiety) Qty: 45 2RF cyclobenzaprine 10 mg tablet 10 mg PO TID PRN (Reason: muscle spasm) Qty: 14 0RF amlodipine [Norvasc] 2.5 mg tablet 2.5 mg PO QAM Patient Comments: HS rosuvastatin 10 mg tablet 10 mg PO DAILY dexlansoprazole 60 mg capsule,biphase delayed releas 60 mg PO QAM Referrals Referrals: Mitra Santizo MD [Primary Care Provider] -
[2023-05-05] MEDS ORDERED: GADOBUTROL 65ML VIAL IV ONE (12:53)
--- NOTE | 2023-05-05 14:17 | Magnetic Resonance Report ---
MRI OF THE BRAIN WITHOUT AND WITH IV CONTRAST CLINICAL HISTORY: Headache, hx of lymphoma. COMPARISON STUDY: Head CT and CTA of the head May 01, 2023. TECHNIQUE: Utilizing a 1.5 Deann magnet and dedicated coil, multiplanar, multiecho imaging of the br ain was performed pre and postcontrast administration. IV administration of 9 mL of Gadavist contras t was uneventful. Thin cut T1 post contrast imaging was performed. FINDINGS: There are no foci of restricted diffusion to suggest acute infarct. No acute intracranial h emorrhage, midline shift or mass effect is present. Ventricular system is normal. Basal cisterns are patent. There are extra-axial collections. Flow-voids for the major intracranial vessels are present. There is no intracranial mass or pathologic enhancement. White matter T2 hyperintense foci suggest m oderate small vessel disease. Calvarial signal is normal. There is no evidence for sinusitis. There i s no mastoid fluid. IMPRESSION: 1. No acute intracranial findings. 2. No intracranial mass or pathologic enhancement. 3. White matter T2 hyperintense foci suggestive of moderate small vessel disease. ACT 112: Negative or not required by law. Electronically signed by: Augustine Silver M.D. 05/05/2023 2:16 PM
[2023-05-05] MEDS ORDERED: dexAMETHasone**PF** 10 MG/ML VIAL IV ONE (16:15)
[2023-05-05] MEDS ORDERED: VALPROATE SOD 500 MG in DEXTROSE 5% 50 ML IV STA (16:15)
--- NOTE | 2023-05-05 17:58 | History & Physical Report ---
Date of Service May 05, 2023 Assessment & Plan (1) Headache: Plan: ongoing headache/cervical spine/paraspinal muscle tightness over the past two weeks. ESR/CRP without elevation Prior CTA head in ER over the past weekend negative for acute process MRI w/w/o obtained in ER given hx lymphoma without mass/lesion. Prior heme/onc notes no recurrence of disease as stated in HPI. She has received B12 injections/Venofer infusion Given Decadron/valproic acid in ER, avoiding further Discussed w/ patient and increased stress at home: 1-having to give away her cat of 7 years due to urinating in the house 2-stress from treatment of her Lymphoma and not fully recovering as quickly as she is hoping 3-poor sleep Admit med/surg Reported history of broken cervical spine at C2 reported however no weakness on exam --> CT cervical spine for further evaluation Heating pad Topical voltaren QID Benadryl x 1 now Melatonin HS to sleep Consideration for Fioricet as appears to have worked but "knocked her out" in the past She remains on Fentanyl patch as rx by PCP/hydrocodone as needed. Will not add additional given likely causing rebound headache as well Check mag/replacement if needed Consideration for Cymbalta for neuropathic pain/depression as well. Would avoid valium at present given opiate use to prevent oversedation/respiratory depression Monitoring overnight/pain management consultation in AM for consideration for block vs other (previously seen outpatient by Dr Cortez for caudal epidural steroid injections in past) (2) B-cell lymphoma: Plan: hx such, follows w/ [facility]CP -- see recent note. Has received B12 weekly x 1 month, now on weekly dosing. Venofer last week, hgb stable F/u CCP for routine monitoring as already arranged (3) Insomnia: Plan: suspect contributing. Benadryl x 1 in ER, melatonin for tonight (4) Peripheral neuropathy: Plan: hx of such, prior on lyrica/others but hasn't worked completed B12 injections outpatient Also on fentanyl patch for pain issues managed by Dr Santizo, hydrocodone as needed for breakthrough pain Consideration for Cymbalta for neuropathic pain/depression CAD Hx NSTEMI in Jun 2021, completed 1 year ASA/plavix, on ASA 81mg daily Not on BB due to LBB and baseline HR in 60s. No on BENJIE/ARB as outpatient BP controlled and no hx CHF per prior cards report GERD - continue PPI while inpatient - hx esophageal spasms, on low dose amlodipine Vertigo - continue meclizine prn. has not reported any recent issue with such History of Present Illness Chief Complaint: headache Primary Care Provider: Mitra Santizo MD 77yo female with PMHx significant for lymphoma, chronic opiate/pain presented with ongoing headache which has been evaluated previously. ESR 15, CRP <0.5. Procal <0.05 Was seen on the in ER and had CTA head which was normal. ER provider spoke w/ Neurology and MRI brain w/w/o obtained given cancer history, negative for acute finding. Had trial of dexamethasone 10mg IX 1 and Valproic acid per their recommendations without any significant improvement. Evaluated in room A2 with daughter Zaynab at bedside, patient reports not having relief with the Decadron and valproic acid. Headache ongoing for about a week and a half. Hx of vertigo and not feeling anything like this. Also has had migraine in the past and does not feel similar. No photophobia, nausea/vomiting, appetite OK. Her "headache" is occipital in nature with feeling like tight muscles in her back. Hx broken neck/C2 and unable to repair. Did ask about any recent stressors/sleep at home -- reports having ongoing poor sleep ongoing as well as recent stress of having to give her cat away after 7 years due to animal urinating in the house which she notes has also been stressful. No new pillows at home. She notes she did get B12 injections weekly for a month and then now to get once monthly. Also got Venofer w/ CCP last week. Fioricet w/ PCP but reports this "knocking her out". Discussed Benadryl/Heating pad/volataren gel/CT cervical spine and pain management consultation for AM to consider injections. Last heme/oncology notes no evidence to suggest recurrence of disease from March of this year, recommended B12 injections (level 175) and PO iron supplementation and f/u PET/CT in 6 months to f/u on lymphoma as well as L lung base opacity. Will obtain CT cervical spine for further evaluated, pain management consultation in AM to ?consider occipital nerve block, ?botox injection. Previously on medications including lyrica for neuropathy but had been ineffective and no longer on these. Daughter notes that she has fibromyalgia and wondering if similar with her mother. o fevers/chills, chest pain, shortness of breath, abdominal pain, nausea or vomiting. Questions/concerns addressed at this time. Of note, she also had bottom L tooth removed two weeks ago, prior to headache st arting. Allergies Allergy/AdvReac Type Severity Reaction Status Date / Time hornet venom Allergy Severe Anaphylaxis Verified 05/05/23 10:24 venom-wasp Allergy Severe Anaphylaxis Verified 05/05/23 10:24 Sulfa (Sulfonamide Allergy Intermediate Hives Verified 05/05/23 10:24 Antibiotics) adhesive Allergy Mild Rash Verified 05/05/23 10:24 codeine Allergy Mild Rash Verified 05/05/23 10:24 diclofenac Allergy Unknown Unknown Verified 05/05/23 10:24 famotidine Allergy Unknown Unknown Verified 05/05/23 10:24 morphine Allergy Unknown Unknown Verified 05/05/23 10:24 nitroglycerin Allergy Unknown Unknown Verified 05/05/23 10:24 ibuprofen AdvReac Intermediate "Skin Verified 05/05/23 10:24 crawling" Juurnnc-RRN-EaC Reductase AdvReac Intermediate Muscle Verified 05/05/23 10:24 Inhibitor aches [[id number]-Sry Reductase Inhibitor] bendeka Allergy Severe pain Uncoded 05/05/23 10:24 Rituxmab Allergy Severe pain Uncoded 05/05/23 10:24 Home Medications Medication Instructions Recorded Confirmed Type meclizine 25 mg tablet (Motion 25 mg PO TID PRN Vertigo #30 tabs 03/30/19 05/05/23 History Sickness (meclizine)) potassium gluconate 595 mg (99 mg) 99 mg PO QAM 03/30/19 05/05/23 History tablet amlodipine 2.5 mg tablet (Norvasc) 2.5 mg PO QAM 07/03/21 05/05/23 History epinephrine 0.3 mg/0.3 mL 0.3 mg (0.3 mL) subcut UD PRN 02/18/22 05/05/23 Rx injection, auto-injector (EpiPen) Anaphylaxis #2 ea rosuvastatin 10 mg tablet 10 mg PO DAILY 07/25/22 05/05/23 History aspirin 81 mg chewable tablet 81 mg PO DAILY 08/26/22 05/05/23 History multivitamin 1 tab PO DAILY 08/26/22 05/05/23 History dexlansoprazole 60 mg 60 mg PO QAM 10/07/22 05/05/23 History capsule,biphase delayed release lorazepam 0.5 mg tablet (Ativan) 0.5 mg PO BID PRN anxiety #45 tabs 10/14/22 05/05/23 Rx clonazepam 0.5 mg tablet (Klonopin) 0.5 mg PO HS PRN Sleep #30 tabs 11/01/22 05/05/23 Rx hydrocodone 5 mg-acetaminophen 325 1 tab PO Q6H PRN pain #60 tabs 04/15/23 05/05/23 Rx mg tablet fentanyl 12 mcg/hr transdermal 12 mcg transdermal [id number] #10 ea 04/23/23 05/05/23 Rx patch cyclobenzaprine 10 mg tablet 10 mg PO TID PRN muscle spasm #14 05/02/23 05/05/23 Rx tabs Past Med/Surg History Medical History Bundle branch block, left Chronic dating back to at least 05/2017 stress test Degenerative disc disease Hyperlipidemia Hypokalemia Nerve pain Left sided Osteoarthritis Osteoporosis Surgical History H/O heart artery stent 07/02/21 History of bilateral cataract extraction Bilateral History of bilateral tubal ligation History of carpal tunnel release Left History of colonoscopy with polypectomy History of esophagogastroduodenoscopy (EGD) History of surgery Deep excision of right cervical lymph nodes by Dr. Guajardo on 05/25/21 Family History Father , 57yo Colorectal cancer Mother , 76yo Myocardial infarction Colorectal cancer Hearing loss Grandmother (Paternal) Stroke Sister Stroke Factor V Leiden mutation Daughter Family history of reaction to anesthesia PONV Brother Myocardial infarction Sister Medical history unknown Son No problems noted. Son No problems noted. Son Ulcerative colitis Daughter No problems noted. Daughter No problems noted. Other Heart disease Denies family history of Ovarian cancer Prostate cancer Breast cancer Social History Smoking Status: Former smoker Tobacco Type: Cigarettes Cigarettes Per Day: 2 PPD x 10 yrs;Quit 1972; Second Hand Exposure: No; Do You Dip or Chew Tobacco: No; Tobacco Cessation Education Requested by Patient: No Hx Alcohol Use: No Hx Substance Use: No Preferred Language: Macanese Communication Ability: Effective Visual Impairment: No Limitations Hearing Ability: Normal Automatic Pilot Mechanic Required: No Beliefs That Will Affect Care: None marital status: / Current Living Situation: Alone current occupational status: retired current occupation: Many occupations How many Children do You have: 5 Other Information That Helps Us Care for You: No Feels Safe at Home: Yes Safety Concerns: Feels Safe At This Time Childhood Exposure to Second-Hand Smoke: Yes Diet: regular caffeine: Yes (1 cup/day) during the past year weight has: remained stable Dental Care, Regularly: Yes Physical Activity Frequency: Daily Physical Activity Frequency Comment: Daily housework, laundry, and minimal walking Seatbelt Use: always Sunscreen Use: No Assistive Devices: None Review of Systems Review of Systems: All systems reviewed & are unremarkable except as noted in HPI & below Physical Exam Physical Exam: General: WD elderly female resting in bed, daughter at bedside, lights on, NAD, general pallor HEENT: head normocephalic, atraumatic, mm pink, pupils equal/reactive, recent dental extraction noted bottom L tooth, no signs of infection at present Chest: port to L chest/covered. no surrounding erythema/tenderness Resp: CTA, slightly diminished in the bases, no rales/crackles, on room air CV: regular rate/rhythm, faint systolic murmur, no pitting edema/calf tenderness GI: +BS, soft/NT : no pugh MSK/Neuro: no slurred speech/facial droop, speech clear, answering questions as able good strength bilateral UE against resistance paraspinal and trapezius muscle tight, tender to palpation (reported improved feeling with massage) Psych: AOx3, cooperative with exam Results & Data Results & Data Vital Signs (Past 12 Hours) Vital Signs Temp Pulse Pulse Resp BP BP Pulse Ox 05/05/23 17:23 67 05/05/23 17:00 69 18 121/87 92 05/05/23 15:00 61 18 129/73 99 05/05/23 14:31 110/63 05/05/23 14:31 64 21 98 05/05/23 14:30 63 12 98 05/05/23 14:00 64 12 96 05/05/23 14:00 113/73 05/05/23 13:40 118 H 21 91 05/05/23 13:40 110/85 05/05/23 11:30 67 15 96 05/05/23 11:00 68 15 97 05/05/23 10:30 69 18 05/05/23 10:30 135/71 05/05/23 10:00 80 20 97 05/05/23 09:30 79 16 05/05/23 09:28 74 19 05/05/23 10:09 97 05/05/23 09:29 76 05/05/23 09:05 36.3 C L 85 20 138/87 96 O2 Del Method 05/05/23 17:23 05/05/23 17:00 Room Air 05/05/23 15:00 Room Air 05/05/23 14:31 05/05/23 14:31 05/05/23 14:30 05/05/23 14:00 05/05/23 14:00 05/05/23 13:40 05/05/23 13:40 05/05/23 11:30 05/05/23 11:00 05/05/23 10:30 05/05/23 10:30 05/05/23 10:00 05/05/23 09:30 05/05/23 09:28 05/05/23 10:09 Room Air 05/05/23 09:29 05/05/23 09:05 Room Air Laboratory Results 05/05/23 05/05/23 05/05/23 Range/Units 09:28 09:28 09:28 WBC (4.8-10.8) K/ul RBC (4.20-5.40) M/uL Hgb (12.0-16.0) g/dl Hct (37.0-47.0) % MCV (80.0-100.0) fL MCH (25.0-34.0) pg MCHC (32.0-36.0) g/dL RDW Std Deviation (36.4-46.3) fL RDW Coeff of Deon (11.5-14.5) % Plt Count (130-400) K/uL MPV (9.4-12.4) fL Immature Gran % (Auto) % Neut % (Auto) % Lymph % (Auto) % [place] % (Auto) % Eos % (Auto) % Baso % (Auto) % Neut # (Auto) (1.40-6.50) K/uL Lymph # (Auto) (1.2-3.4) K/uL [place] # (Auto) (0.11-0.59) K/uL Eos # (Auto) (0-0.50) K/uL Baso # (Auto) (0-0.2) K/uL Immature Gran # (Auto) (0.01-0.20) K/uL ESR (0-30) mm/hr Sodium 142 (136-145) mmol/L Potassium 3.7 (3.5-5.1) mmol/L Chloride 105 (98-107) mmol/L Carbon Dioxide 27 (21-32) mmol/L Anion Gap 10 (3-11) BUN 14 (6-23) mg/dl Creatinine 0.98 (0.6-1.2) mg/dl Est Cr Clr Drug Dosing 53.6 ml/min Est GFR ( Amer) 64.0 ml/min Est GFR (Non-Af Amer) 55.3 ml/min BUN/Creatinine Ratio 14.3 (10-20) Glucose 100 H (70-99(Fasting)) mg/dl Calcium 9.6 (8.6-10.3) mg/dl Total Bilirubin 0.4 (0.2-1.0) mg/dl AST 15 (13-39) U/L ALT 12 (7-52) U/L Alkaline Phosphatase 62 (34-104) U/L C-Reactive Protein < 0.50 (0-0.5) mg/dl Total Protein 7.3 (6.0-8.3) gm/dl Albumin 4.4 (3.4-5.0) gm/dl Globulin 2.9 (2.5-4.0) gm/dl Albumin/Globulin Ratio 1.5 (0.9-2) Procalcitonin < 0.05 (0-0.5) ng/ml Lyme Disease IgG Ab Negative (Negative) Lyme Disease IgM Ab Negative (Negative) 05/05/23 05/05/23 Range/Units 09:28 09:28 WBC 6.26 (4.8-10.8) K/ul RBC 4.50 (4.20-5.40) M/uL Hgb 12.9 (12.0-16.0) g/dl Hct 39.7 (37.0-47.0) % MCV 88.2 (80.0-100.0) fL MCH 28.7 (25.0-34.0) pg MCHC 32.5 (32.0-36.0) g/dL RDW Std Deviation 54.7 H (36.4-46.3) fL RDW Coeff of Deon 17.4 H (11.5-14.5) % Plt Count 343 (130-400) K/uL MPV 10.1 (9.4-12.4) fL Immature Gran % (Auto) 0.3 % Neut % (Auto) 68.6 % Lymph % (Auto) 14.2 % [place] % (Auto) 12.6 % Eos % (Auto) 3.5 % Baso % (Auto) 0.8 % Neut # (Auto) 4.29 (1.40-6.50) K/uL Lymph # (Auto) 0.89 L (1.2-3.4) K/uL [place] # (Auto) 0.79 H (0.11-0.59) K/uL Eos # (Auto) 0.22 (0-0.50) K/uL Baso # (Auto) 0.05 (0-0.2) K/uL Immature Gran # (Auto) 0.02 (0.01-0.20) K/uL ESR 15 (0-30) mm/hr Sodium (136-145) mmol/L Potassium (3.5-5.1) mmol/L Chloride (98-107) mmol/L Carbon Dioxide (21-32) mmol/L Anion Gap (3-11) BUN (6-23) mg/dl Creatinine (0.6-1.2) mg/dl Est Cr Clr Drug Dosing ml/min Est GFR ( Amer) ml/min Est GFR (Non-Af Amer) ml/min BUN/Creatinine Ratio (10-20) Glucose (70-99(Fasting)) mg/dl Calcium (8.6-10.3) mg/dl Total Bilirubin (0.2-1.0) mg/dl AST (13-39) U/L ALT (7-52) U/L Alkaline Phosphatase (34-104) U/L C-Reactive Protein (0-0.5) mg/dl Total Protein (6.0-8.3) gm/dl Albumin (3.4-5.0) gm/dl Globulin (2.5-4.0) gm/dl Albumin/Globulin Ratio (0.9-2) Procalcitonin (0-0.5) ng/ml Lyme Disease IgG Ab (Negative) Lyme Disease IgM Ab (Negative) Diagnostic Findings Brain MRI 05/05/23 11:27 MRI OF THE BRAIN WITHOUT AND WITH IV CONTRAST CLINICAL HISTORY: Headache, hx of lymphoma. COMPARISON STUDY: Head CT and CTA of the head May 01, 2023. TECHNIQUE: Utilizing a 1.5 Deann magnet and dedicated coil, multiplanar, multiecho imaging of the brain was performed pre and postcontrast administration. IV administration of 9 mL of Gadavist contrast was uneventful. Thin cut T1 post contrast imaging was performed. FINDINGS: There are no foci of restricted diffusion to suggest acute infarct. No acute intracranial hemorrhage, midline shift or mass effect is present. Ventricular system is normal. Basal cisterns are patent. There are extra-axial collections. Flow-voids for the major intracranial vessels are present. There is no intracranial mass or pathologic enhancement. White matter T2 hyperintense foci suggest moderate small vessel disease. Calvarial signal is normal. There is no evidence for sinusitis. There is no mastoid fluid. IMPRESSION: 1. No acute intracranial findings. 2. No intracranial mass or pathologic enhancement. 3. White matter T2 hyperintense foci suggestive of moderate small vessel disease. ACT 112: Negative or not required by law. Electronically signed by: Augustine Silver M.D. 05/05/2023 2:16 PM Supervising Physician Co-Signing Physician Notes I personally saw and examined the patient. I verified all villarreal points and agree with Lynn Sauer PA-C with the following exceptions and/or additions: 77 year old female presents to the ER with acute on chronic headache and neck pain O/E A&Ox3, HS RRR, no murmurs, Chest CTAB, Abdo SNT, no pronator drift, no extremity weakness or sensation loss, pain on palpation of neck muscles A/P Headache - ESR normal, not consistent with PMR, suspect related to her anxiety and insomnia and will start trazodone. Concern combining of muscle relaxants, benzodiazepines and opiates, will d/c benzodiazepines. Consult pain management to consider trigger point injection. PG Care Time/CCT Total # of Minutes Spent Total Time Spent with Patient: Total time spent is greater than 50% in coordination of care (as documented) at patient's floor/unit and/or counseling patient: Coding Level of Care Code 47894 INT INP/OBS CARE 2/55MIN Diagnoses Headache R51.9 B-cell lymphoma C85.10 Insomnia G47.00 Peripheral neuropathy G62.9
[2023-05-05] MEDS ORDERED: diphenhydrAMINE 50 MG/ML VIAL IV STA (18:17)
[2023-05-05 19:00] LABS: Magnesium 2.2 mg/dl (1.7-2.4)
--- NOTE | 2023-05-05 21:24 | CT Scan Report ---
Exam(s): CT C SPINE EXAM: CT Cervical Spine Without Intravenous Contrast CLINICAL HISTORY: Reason for exam: headache. TECHNIQUE: Axial computed tomography images of the cervical spine without intravenous contrast. CTDI is 18.8 mGy and DLP is 425.86 mGy-cm. Automated exposure control was utilized for the study. A dose lowering technique was utilized adhering to the principles of ALARA. COMPARISON: No relevant prior studies available. FINDINGS: Vertebrae: Unremarkable. No acute fracture. Discs/spinal canal/neural foramina: Anterior bony spurs at C5-6 without significant bony spinal canal stenosis at any cervical level. Soft tissues: Unremarkable. IMPRESSION: No acute findings in the cervical spine. Electronically signed by: Sánchez Eason M.D. 05/05/23 21:23 PM
[2023-05-05] MEDS ORDERED: clonazePAM 0.5 MG TAB PO PRN (22:09)
[2023-05-05] MEDS ORDERED: MECLIZINE HCL 25 MG TAB PO PRN (22:09)
[2023-05-05] MEDS ORDERED: CYCLOBENZAPRINE HCL 10 MG TAB PO PRN (22:09)
[2023-05-05] MEDS ORDERED: LORazepam 0.5 MG TAB PO PRN (22:09)
[2023-05-05] MEDS ORDERED: ONDANSETRON INJ 2 MG/ML 2 ML VIAL IV PRN (22:09)
[2023-05-05] MEDS: DICLOFENAC SOD 1% GEL 100 GM TUBE EXT SCH (22:50)
[2023-05-05] MEDS: MELATONIN 3 MG TAB PO SCH (22:51)
[2023-05-05] MEDS: traZODone HCL 50 MG TAB PO SCH (22:51)
[2023-05-05] MEDS: CHECK fentaNYL PATCH PLACEMENT SCH (23:56)
[2023-05-06 07:41] LABS: Hematocrit (blood only) 35.5 % (37.0-47.0); Hemoglobin 11.9 g/dl (12.0-16.0); Mean Corpuscular Hemoglobin 28.9 pg (25.0-34.0); Mean Corpuscular Hgb Conc 33.5 g/dL (32.0-36.0); Mean Corpuscular Volume 86.2 fL (80.0-100.0); Mean Platelet Volume 10.2 fL (9.4-12.4); Platelet Count 329 K/uL (130-400); RDW Coefficient of Variation 17.4 % (11.5-14.5); RDW Standard Deviation 54.2 fL (36.4-46.3); Red Blood Count 4.12 M/uL (4.20-5.40); White Blood Count 7.23 K/ul (4.8-10.8)
[2023-05-06 08:03] LABS: BUN Creatinine Ratio 17.6 (10-20); Calcium 9.4 mg/dl (8.6-10.3); Creatinine Clr Calc Pharmacy 57.5 ml/min; Est GFR (Non-African American) 60.4 ml/min; Magnesium 2.4 mg/dl (1.7-2.4); Potassium 4.4 mmol/L (3.5-5.1)
[2023-05-06] MEDS: PANTOprazole 40 MG TAB PO SCH (08:05)
[2023-05-06] MEDS: MULTIVITAMIN TAB PO SCH (08:05)
[2023-05-06] MEDS: ROSUVASTATIN CALCIUM 10 MG TAB PO SCH (08:05)
[2023-05-06] MEDS: amLODIPine BESYLATE 5 MG TAB PO SCH (08:06)
[2023-05-06] MEDS: ASPIRIN 81 MG CHEW PO SCH (08:06)
[2023-05-06] MEDS: HYDROCODONE/ACETAMOPHEN 5/325MG TAB PO PRN (08:08)
[2023-05-06] MEDS: CHECK fentaNYL PATCH PLACEMENT SCH ×2 (08:09→16:47)
[2023-05-06] MEDS: DICLOFENAC SOD 1% GEL 100 GM TUBE EXT SCH ×4 (08:10→20:48)
--- NOTE | 2023-05-06 08:19 | Hospitalist Progress Note ---
Date of Service May 06, 2023 Assessment & Plan (1) Headache: Plan: ongoing headache/cervical spine/paraspinal muscle tightness over the past two weeks. ESR/CRP without elevation. Could also be getting rebound from opiate use Prior CTA head in ER over the past weekend negative for acute process MRI w/w/o obtained in ER given hx lymphoma without mass/lesion. Prior heme/onc notes no recurrence of disease as stated in HPI. She has received B12 injections/Venofer infusion Given Decadron/valproic acid in ER, avoiding further Discussed w/ patient and increased stress at home: 1-having to give away her cat of 7 years due to urinating in the house 2-stress from treatment of her Lymphoma and not fully recovering as quickly as she is hoping 3-poor sleep CT Cervical spine negative for acute finding Trazodone/melatonin for sleep -- did report getting some sleep overnight, appearing improved despite ongoing MSK discomfort Continue heat/voltaren Added lidocaine patch Pain management consulted Medrol dose pack, baclofen 10mg BID scheduled . Ordered dose for now ?Cymbalta for depression/pain. Patient wanting to monitor overnight. Discussed appears mostly MSK in nature. Daughter in room is massage therapist. Patient reports not really liking to be touched. Recommended allowing massage/limiting stress Plan for discharge tomorrow as long as patient stable (2) B-cell lymphoma: Plan: hx such, follows w/ [facility]CP -- see recent note. Has received B12 weekly x 1 month, now on weekly dosing. Venofer last week, hgb stable F/u CCP for routine monitoring as already arranged stress from not being as strong as she was before treatment- will consult PT to see if any needs for at home prior to discharge (3) Insomnia: Plan: suspect contributing. Melatonin HS Trazodone added on admission, will continue as she reported getting more sleep last night than nights prior (4) Peripheral neuropathy: Plan: hx of such, prior on lyrica/others but hasn't worked completed B12 injections outpatient Also on fentanyl patch for pain issues managed by Dr Santizo, hydrocodone as needed for breakthrough pain Consideration for Cymbalta for neuropathic pain/depression CAD Hx NSTEMI in Jun 2021, completed 1 year ASA/plavix, on ASA 81mg daily Not on BB due to LBB and baseline HR in 60s. No on BENJIE/ARB as outpatient BP controlled and no hx CHF per prior cards report GERD Continue PPI while inpatient Hx esophageal spasms, on low dose amlodipine Vertigo Continue meclizine prn. has not reported any recent issue with such Plan continued inpatient stay, hopeful discharge tomorrow Admission and Anticipated Discharge Date Admission Date: May 05, 2023 Subjective eval this morning, doing alright. discussed possible rebound headache from opiates as no improvement w/ use, likely MSK in nature. Did get some sleep despite waking up every 2 or so hours. Agrees likely stress contributing as well. No visual changes/blurry vision/photophobia/nausea or vomiting. Good appetite. Daughter in room, massage therapist. Discussed massage. Reports using salonpass, discussed lidocaine patch. Medrol dose pack per pain management. Also baclofen scheduled but not getting til tonight. Will have RN administer now. If symptoms stable overnight/not worse will plan for dc tomorrow. Questions/concerns addressed at this time. Physical Exam Physical Exam: General: WD elderly female resting in bed, other daughter at bedside today, lights on, NAD, does not seem as uncomfortable HEENT: head normocephalic, atraumatic, mm pink, pupils equal/reactive, recent dental extraction noted bottom L tooth, no signs of infection at present Chest: port to L chest/covered. no surrounding erythema/tenderness Resp: CTA, slightly diminished in the bases, no rales/crackles, on room air CV: regular rate/rhythm, faint systolic murmur, no pitting edema/calf tenderness GI: +BS, soft/NT : no pugh MSK/Neuro: no slurred speech/facial droop, speech clear, answering questions as able good strength bilateral UE against resistance paraspinal and trapezius muscle tight, tender to palpation Psych: AOx3, cooperative with exam Results & Data Results & Data Vital Signs (Past 12 Hours) Vital Signs Temp Pulse Pulse Resp BP BP Pulse Ox 05/05/23 22:14 05/05/23 22:14 05/05/23 22:14 36.5 C 77 16 133/77 93 05/05/23 21:30 69 14 136/80 05/05/23 21:33 71 05/05/23 21:00 70 15 106/58 L 94 O2 Del Method 05/05/23 22:14 Room Air 05/05/23 22:14 Room Air 05/05/23 22:14 Room Air 05/05/23 21:30 05/05/23 21:33 05/05/23 21:00 Laboratory Results 05/06/23 05/06/23 05/06/23 Range/Units 06:57 06:57 06:57 WBC 7.23 (4.8-10.8) K/ul RBC 4.12 L (4.20-5.40) M/uL Hgb 11.9 L (12.0-16.0) g/dl Hct 35.5 L (37.0-47.0) % MCV 86.2 (80.0-100.0) fL MCH 28.9 (25.0-34.0) pg MCHC 33.5 (32.0-36.0) g/dL RDW Std Deviation 54.2 H (36.4-46.3) fL RDW Coeff of Deon 17.4 H (11.5-14.5) % Plt Count 329 (130-400) K/uL MPV 10.2 (9.4-12.4) fL Sodium 141 (136-145) mmol/L Potassium 4.4 (3.5-5.1) mmol/L Chloride 107 (98-107) mmol/L Carbon Dioxide 26 (21-32) mmol/L Anion Gap 8 (3-11) BUN 16 (6-23) mg/dl Creatinine 0.91 (0.6-1.2) mg/dl Est Cr Clr Drug Dosing 57.5 ml/min Est GFR ( Amer) 70.0 ml/min Est GFR (Non-Af Amer) 60.4 ml/min BUN/Creatinine Ratio 17.6 (10-20) Glucose 130 H (70-99(Fasting)) mg/dl Calcium 9.4 (8.6-10.3) mg/dl Magnesium 2.4 (1.7-2.4) mg/dl Folate 17.75 (>5.38) ng/ml 05/05/23 Range/Units 09:28 WBC (4.8-10.8) K/ul RBC (4.20-5.40) M/uL Hgb (12.0-16.0) g/dl Hct (37.0-47.0) % MCV (80.0-100.0) fL MCH (25.0-34.0) pg MCHC (32.0-36.0) g/dL RDW Std Deviation (36.4-46.3) fL RDW Coeff of Deon (11.5-14.5) % Plt Count (130-400) K/uL MPV (9.4-12.4) fL Sodium (136-145) mmol/L Potassium (3.5-5.1) mmol/L Chloride (98-107) mmol/L Carbon Dioxide (21-32) mmol/L Anion Gap (3-11) BUN (6-23) mg/dl Creatinine (0.6-1.2) mg/dl Est Cr Clr Drug Dosing ml/min Est GFR ( Amer) ml/min Est GFR (Non-Af Amer) ml/min BUN/Creatinine Ratio (10-20) Glucose (70-99(Fasting)) mg/dl Calcium (8.6-10.3) mg/dl Magnesium 2.2 (1.7-2.4) mg/dl Folate (>5.38) ng/ml Diagnostic Findings Brain MRI 05/05/23 11:27 MRI OF THE BRAIN WITHOUT AND WITH IV CONTRAST CLINICAL HISTORY: Headache, hx of lymphoma. COMPARISON STUDY: Head CT and CTA of the head May 01, 2023. TECHNIQUE: Utilizing a 1.5 Deann magnet and dedicated coil, multiplanar, multiecho imaging of the brain was performed pre and postcontrast administration. IV administration of 9 mL of Gadavist contrast was uneventful. Thin cut T1 post contrast imaging was performed. FINDINGS: There are no foci of restricted diffusion to suggest acute infarct. No acute intracranial hemorrhage, midline shift or mass effect is present. Ventricular system is normal. Basal cisterns are patent. There are extra-axial collections. Flow-voids for the major intracranial vessels are present. There is no intracranial mass or pathologic enhancement. White matter T2 hyperintense foci suggest moderate small vessel disease. Calvarial signal is normal. There is no evidence for sinusitis. There is no mastoid fluid. IMPRESSION: 1. No acute intracranial findings. 2. No intracranial mass or pathologic enhancement. 3. White matter T2 hyperintense foci suggestive of moderate small vessel disease. ACT 112: Negative or not required by law. Electronically signed by: Augustine Silver M.D. 05/05/2023 2:[address] 05/05/23 17:56 Exam(s): CT C SPINE EXAM: CT Cervical Spine Without Intravenous Contrast CLINICAL HISTORY: Reason for exam: headache. TECHNIQUE: Axial computed tomography images of the cervical spine without intravenous contrast. CTDI is 18.8 mGy and DLP is 425.86 mGy-cm. Automated exposure control was utilized for the study. A dose lowering technique was utilized adhering to the principles of ALARA. COMPARISON: No relevant prior studies available. FINDINGS: Vertebrae: Unremarkable. No acute fracture. Discs/spinal canal/neural foramina: Anterior bony spurs at C5-6 without significant bony spinal canal stenosis at any cervical level. Soft tissues: Unremarkable. IMPRESSION: No acute findings in the cervical spine. Electronically signed by: Sánchez Eason M.D. 05/05/23 21:23 PM PG Care Time/CCT Total # of Minutes Spent Total Time Spent with Patient: Total time spent is greater than 50% in coordination of care (as documented) at patient's floor/unit and/or counseling patient: Coding Level of Care Code 47641 SUB INP/OBS CARE 2/35MIN Diagnoses Headache R51.9 B-cell lymphoma C85.10 Insomnia G47.00 Peripheral neuropathy G62.9
[2023-05-06] MEDS ORDERED: NON-FORMULARY MEDICATION (Potassium Gluconate 595 mg (99 mg) tablet) PO SCH (09:00)
[2023-05-06] MEDS ORDERED: methylPREDNISolone 4 MG TAB, 6 DAY TAPER PO SCH (10:45)
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
[2023-05-06] MEDS: methylPREDNISolone 4 MG TAB PO SCH ×4 (11:26→20:49)
[2023-05-06] MEDS ORDERED: BACLOFEN 10 MG TAB PO ONE (11:35)
[2023-05-06] MEDS ORDERED: LIDOCAINE 5% 1 PATCH TD STA (11:58)
[2023-05-06] MEDS: POLYETHYLENE (MIRALAX) 17 GM PACK PO SCH (14:46)
[2023-05-06] MEDS: BACLOFEN 10 MG TAB PO SCH (20:47)
[2023-05-06] MEDS: traZODone HCL 50 MG TAB PO SCH (20:48)
[2023-05-06] MEDS: MELATONIN 3 MG TAB PO SCH (20:51)
[2023-05-07] MEDS: CHECK fentaNYL PATCH PLACEMENT SCH ×3 (00:18→16:21)
[2023-05-07] MEDS: methylPREDNISolone 4 MG TAB PO SCH ×3 (06:21→17:30)
[2023-05-07] MEDS: PANTOprazole 40 MG TAB PO SCH (08:39)
[2023-05-07] MEDS: POLYETHYLENE (MIRALAX) 17 GM PACK PO SCH (08:40)
[2023-05-07] MEDS: amLODIPine BESYLATE 5 MG TAB PO SCH (08:43)
[2023-05-07] MEDS: ROSUVASTATIN CALCIUM 10 MG TAB PO SCH (08:43)
[2023-05-07] MEDS: MULTIVITAMIN TAB PO SCH (08:43)
[2023-05-07] MEDS: ASPIRIN 81 MG CHEW PO SCH (08:45)
[2023-05-07] MEDS: BACLOFEN 10 MG TAB PO SCH ×2 (08:47→23:26)
[2023-05-07] MEDS: DICLOFENAC SOD 1% GEL 100 GM TUBE EXT SCH ×4 (08:51→23:23)
[2023-05-07] MEDS: HYDROCODONE/ACETAMOPHEN 5/325MG TAB PO PRN (13:03)
[2023-05-07] MEDS: CELECOXIB 100 MG CAP PO SCH (16:38)
[2023-05-07] MEDS ORDERED: methylPREDNISolone 4 MG TAB PO SCH (21:00)
[2023-05-07] MEDS ORDERED: fentaNYL 12 MCG/HR TDSY TD SCH (22:00)
--- NOTE | 2023-05-07 22:37 | Hospitalist Progress Note ---
Date of Service May 07, 2023 Assessment & Plan (1) Headache: Plan: ongoing headache/cervical spine/paraspinal muscle tightness over the past two weeks. ESR/CRP without elevation. Could also be getting rebound from opiate use Prior CTA head in ER over the past weekend negative for acute process MRI w/w/o obtained in ER given hx lymphoma without mass/lesion. Prior heme/onc notes no recurrence of disease as stated in HPI. She has received B12 injections/Venofer infusion Given Decadron/valproic acid in ER, avoiding further Discussed w/ patient and increased stress at home: 1-having to give away her cat of 7 years due to urinating in the house 2-stress from treatment of her Lymphoma and not fully recovering as quickly as she is hoping 3-poor sleep CT Cervical spine negative for acute finding Trazodone/melatonin for sleep -- did report getting some sleep overnight, appearing improved despite ongoing MSK discomfort Continue heat/voltaren Added lidocaine patch Pain management consulted Medrol dose pack, baclofen 10mg BID scheduled . Ordered dose for now ?Cymbalta for depression/pain. 05/07 Patient wanting to monitor overnight. Discussed appears mostly MSK in nature. Daughter in room is massage therapist. Patient reports not really liking to be touched. Recommended allowing massage/limiting stress Plan for discharge was on 05/07 However due to continued pain, patient is now interetsed in an injection. Pain managment will see patient in AM. Patient will start celebrex (2) B-cell lymphoma: Plan: hx such, follows w/ [facility] -- see recent note. Has received B12 weekly x 1 month, now on weekly dosing. Venofer last week, hgb stable F/u [facility] for routine monitoring as already arranged stress from not being as strong as she was before treatment- will consult PT to see if any needs for at home prior to discharge (3) Insomnia: Plan: suspect contributing. Melatonin HS Trazodone added on admission, will continue as she reported getting more sleep last night than nights prior (4) Peripheral neuropathy: Plan: hx of such, prior on lyrica/others but hasn't worked completed B12 injections outpatient Also on fentanyl patch for pain issues managed by Dr Santizo, hydrocodone as needed for breakthrough pain Consideration for Cymbalta for neuropathic pain/depression CAD Hx NSTEMI in Jun 2021, completed 1 year ASA/plavix, on ASA 81mg daily Not on BB due to LBB and baseline HR in 60s. No on BENJIE/ARB as outpatient BP controlled and no hx CHF per prior cards report GERD Continue PPI while inpatient Hx esophageal spasms, on low dose amlodipine Vertigo Continue meclizine prn. has not reported any recent issue with such Plan continued inpatient stay, hopeful discharge tomorrow Admission and Anticipated Discharge Date Admission Date: May 07, 2023 Subjective Patient continues to have a headache. Review of Systems Review of Systems: All systems reviewed & are unremarkable except as noted in HPI & below Physical Exam Physical Exam: General: WD elderly female resting in bed, other daughter at bedside today, lights on, NAD, does not seem as uncomfortable HEENT: head normocephalic, atraumatic, mm pink, pupils equal/reactive, recent dental extraction noted bottom L tooth, no signs of infection at present Chest: port to L chest/covered. no surrounding erythema/tenderness Resp: CTA, slightly diminished in the bases, no rales/crackles, on room air CV: regular rate/rhythm, faint systolic murmur, no pitting edema/calf tenderness GI: +BS, soft/NT : no pugh MSK/Neuro: no slurred speech/facial droop, speech clear, answering questions as able good strength bilateral UE against resistance paraspinal and trapezius muscle tight, tender to palpation Psych: AOx3, cooperative with exam Results & Data Results & Data Vital Signs (Past 12 Hours) Vital Signs Temp Pulse Resp BP Pulse Ox O2 Del Method 05/07/23 20:40 36.6 C 60 16 102/67 94 Room Air 05/07/23 15:18 36.6 C 59 L 16 99/66 L 95 Room Air PG Care Time/CCT Total # of Minutes Spent Total Time Spent with Patient: Total time spent is greater than 50% in coordination of care (as documented) at patient's floor/unit and/or counseling patient: Coding Level of Care Code 86748 SUB INP/OBS CARE 2/35MIN Diagnoses Headache R51.9 B-cell lymphoma C85.10 Insomnia G47.00 Peripheral neuropathy G62.9
[2023-05-07] MEDS ORDERED: ACETAMINOPHEN 500 MG TAB PO STA (22:57)
[2023-05-07] MEDS ORDERED: diphenhydrAMINE Capsule 25 MG CAP PO ONE (22:57)
--- NOTE | 2023-05-07 23:00 | Communication Note ---
Date of Service: May 07, 2023 I was notified by the nurse that patient did not want to take several of her meds for neck pain and difficulty sleeping due to them not working. This inclu crystal her baclofen, fentanyl patch, Nettie, melatonin, or trazodone. She wanted to take Tylenol PM instead which we do not have at our pharmacy. Instead will give her a dose of Tylenol and Benadryl together to make Tylenol PM. This should be reasonable for tonight and day time can discuss this further with patient in am. She can still have her melatonin and trazodone tonight if she wishes but will tr y to hold off on the patch, baclofen, and Nettie to avoid polypharmacy given her age. Resident Activity Tracking Resident Involvement: Resident Care Provided Care Provided: Adult Hospital Medicine
[2023-05-07] MEDS: traZODone HCL 50 MG TAB PO SCH (23:24)
[2023-05-07] MEDS: MELATONIN 3 MG TAB PO SCH (23:25)
[2023-05-08] MEDS: CHECK fentaNYL PATCH PLACEMENT SCH ×2 (01:08→09:38)
[2023-05-08] MEDS: methylPREDNISolone 4 MG TAB PO SCH ×3 (05:38→16:55)
[2023-05-08] MEDS ORDERED: KETOROLAC 30 MG/ML VIAL ONE (07:41)
[2023-05-08] MEDS ORDERED: TRIAMCINOLONE ACET 40 MG/ML VIAL ONE (07:41)
--- NOTE | 2023-05-08 08:30 | Pain Management Progress Note ---
Date of Service May 08, 2023 Assessment & Plan (1) Cervicogenic headache: (2) Myofascial pain: Plan 1. Recommend patient undergo a trial of trigger point injections at today's visit and a greater occipital nerve block. Risks versus benefits were discussed. All her questions were answered. Patient elects to proceed with the procedure. Procedure was completed at today's visit at the patient provided informed consent. Refer to procedure note below. 2. Recommend she continue with celecoxib 100 mg twice daily and finish prednisone taper 3. Continue with application of heat and would recommend outpatient PT 4. Further treatment recommendations pending response to trigger point injections TRIGGER POINT INJECTION AND GREATER OCCIPITAL NERVE BLOCK Diagnosis: Myofascial pain with spasm Side/Level injected: Left proximal cervical paravertebral x1, left mid cervical paravertebral x1, left levator scapulae x1, left proximal trapezius x1, left sternocleidomastoid x2, left greater occipital nerve x1 Surgeon: Kye SERRANO Prior to starting, the Patients diagnosis and the procedure were reviewed with the patient in detail. Possible risks and complications including infection, bleeding, damage to surrounding structures and increased pain were discussed. Alternative therapies were also reviewed. Patients questions were answered and they agreed to proceed. Informed consent was obtained. Allergies and medication list was reviewed. The patient was brought to the procedure room and placed in sitting position. Immediately prior to starting the procedure, a ``time out was conducted with the staff and the patient where the patient was identified, proposed procedure was verified, consent was reviewed and the proper site for the planned procedure was identified. Patient was not given any intravenous sedation and constant verbal contact was maintained throughout the procedure. On examination, no signs of skin breakdown or infection were noted at the injection site. The site was cleansed with ChloraPrep. After the application of either chloraprep, duraprep, and/or betadine (depending on patient's allergy status), three minutes time elapsed prior to the start of the procedure to reduce risk of fire. Palpation over the site produced patients typical pain. Using an 1.5 inch 25-gauge needle, the above muscles were injected in similar fashion after negative aspiration for blood with 1-1.5 mL of a combination of 7 mL of 0.5% ropivacaine containing 20 mg of Kenalog and 60 mg of ketorolac without complication. Using typical anatomic landmarks the greater occipital nerve injection was completed with 1.5 inch 25-gauge needle utilizing 1.5-2 cc of a combination of 2 cc of 0.5% ropivacaine with 20 mg of Kenalog in fanlike fashion. Needle was withdrawn at each site and hemostasis was noted. Band-Aid was applied where needed. Patient tolerated the procedure uneventfully without complications. Patient was discharged home with standard discharge instructions after 15-20 minutes. Admission and Anticipated Discharge Date Admission Date: May 07, 2023 Subjective Mrs. Hagan continues to complain of left-sided axial neck pain extending into the occipital scalp with headache. She describes aching and throbbing characteristic with minimal improvement over the past 2 days. She did report approximately 8 hours of relief with use of celecoxib initiated yesterday afternoon. She reported interference of sleep quality and quantity last night due to the discomfort. She is rating her pain a 6/10 upon initial evaluation. She rated her pain a 2/10 after trigger injections and greater occipital nerve block were completed at today's visit. She continues to deny any pain rating into the shoulder or upper extremity. She denies light sensitive, sound sensitive, nausea or vomiting associate with her headaches. The headache does not travel in a hemicranial distribution as it remains in the occipital scalp only. Patient has no further constitutional complaints. Plan of care discussed with Dr. Leal. Pain Assessment Pain Assessment Full Body Front + Back: 1. Left axial neck/occipital scalp Pain scale - at its best (0-10): 2 Pain scale - at its worst (0-10): 6 Physical Exam Physical Exam: General: Patient lying quietly upon entering the room in no acute distress. Speech and thought process appropriate. Mood and affect appropriate. Cognition intact. Patient able to sit up without limitation. Head: Patient remains tender to direct palpation over the left greater occipital nerve and nontender corresponding on the right. Neck: Patient continues with diffuse left-sided cervical paravertebral, sternocleidomastoid, levator scapulae and proximal trapezius tenderness to palpation with spasm and scattered myoneural trigger points. She remains with slightly diminished range of motion with left lateral rotation when compared to right and left ear to shoulder maneuvering when compared to right. Spurling's maneuver with increased axial neck pain without radicular component. Minimally tender in the mid trapezius musculature. No appreciable spasm or myoneural trigger point in the mid trapezius. Upper extremities: Strength testing 5/5 with handgrip and opposition. Sensation intact without deficit. Neurologic: Cranial nerves grossly intact. Ambulatory function normal.
[2023-05-08] MEDS ORDERED: fentaNYL 12 MCG/HR TDSY TD SCH (09:00)
--- NOTE | 2023-05-08 09:27 | Hospitalist Progress Note ---
Date of Service May 08, 2023 Assessment & Plan (1) Headache: Plan: ongoing headache/cervical spine/paraspinal muscle tightness over the past two weeks. ESR/CRP without elevation. Prior CTA head in ER over the past weekend negative for acute process MRI w/w/o obtained in ER given hx lymphoma without mass/lesion. Prior heme/onc notes no recurrence of disease as stated in HPI. She has received B12 injections/Venofer infusion Given Decadron/valproic acid in ER, avoiding further Discussed w/ patient and increased stress at home: 1-having to give away her cat of 7 years due to urinating in the house 2-stress from treatment of her Lymphoma and not fully recovering as quickly as she is hoping 3-poor sleep CT Cervical spine negative for acute finding Trazodone/melatonin for sleep -- did report getting some sleep overnight, appearing improved despite ongoing MSK discomfort Continue heat/voltaren Added lidocaine patch Pain management consulted, patient to undergo trigger point injection 05/08 recommending continued Celebrex and steroid taper, 2 cc of ropivacaine and 20 mg of Kenalog distributed in a fanlike fashion Medrol dose pack, baclofen 10mg BID scheduled . Ordered dose for now ?Cymbalta for depression/pain. (2) B-cell lymphoma: Plan: hx such, follows w/ [facility] -- no current recurrence Has received B12 weekly x 1 month, now on weekly dosing. Venofer last week, hgb stable (3) Peripheral neuropathy: Plan: hx of such, prior on lyrica/others but hasn't worked completed B12 injections outpatient Also on fentanyl patch for pain issues managed by Dr Santizo, hydrocodone as needed for breakthrough pain Consideration for Cymbalta for neuropathic pain/depression CAD Hx NSTEMI in Jun 2021, completed 1 year ASA/plavix, on ASA 81mg daily Not on BB due to LBB and baseline HR in 60s. No on BENJIE/ARB as outpatient BP controlled and no hx CHF per prior cards report GERD Continue PPI while inpatient Hx esophageal spasms, on low dose amlodipine Vertigo Continue meclizine prn. has not reported any recent issue with such (4) Insomnia: Plan: suspect contributing. Melatonin HS Trazodone added on admission, will continue as she reported getting more sleep last night than nights prior Admission and Anticipated Discharge Date Admission Date: May 07, 2023 Results & Data Results & Data Vital Signs (Past 12 Hours) Vital Signs Temp Pulse Resp BP Pulse Ox O2 Del Method 05/08/23 07:24 98.4 F 61 18 114/73 93 Room Air PG Care Time/CCT Total # of Minutes Spent Total Time Spent with Patient: Total time spent is greater than 50% in coordination of care (as documented) at patient's floor/unit and/or counseling patient: Coding Diagnoses Headache R51.9 B-cell lymphoma C85.10 Peripheral neuropathy G62.9 Insomnia G47.00
[2023-05-08] MEDS: amLODIPine BESYLATE 5 MG TAB PO SCH (09:30)
[2023-05-08] MEDS: ASPIRIN 81 MG CHEW PO SCH (09:31)
[2023-05-08] MEDS: BACLOFEN 10 MG TAB PO SCH (09:32)
[2023-05-08] MEDS: POLYETHYLENE (MIRALAX) 17 GM PACK PO SCH (09:34)
[2023-05-08] MEDS: CELECOXIB 100 MG CAP PO SCH (09:34)
[2023-05-08] MEDS: MULTIVITAMIN TAB PO SCH (09:34)
[2023-05-08] MEDS: PANTOprazole 40 MG TAB PO SCH (09:35)
[2023-05-08] MEDS: ROSUVASTATIN CALCIUM 10 MG TAB PO SCH (09:35)
[2023-05-08] MEDS: DICLOFENAC SOD 1% GEL 100 GM TUBE EXT SCH ×2 (09:38→12:23)
--- NOTE | 2023-05-08 15:16 | Communication Note ---
Date of Service: May 08, 2023 By CMS guidelines, a determination that the admission or continued stay is not medically necessary has been made by a member of the UR committee and a physi carly for this hospital stay, therefore a Code 44 will be completed and the Inpatient admission will be changed to outpatient.
--- NOTE | 2023-05-08 15:18 | Discharge Summary ---
Date of Service May 08, 2023 Admission HPI Per Admitting Provider 77yo female with PMHx significant for lymphoma, chronic opiate/pain presented with ongoing headache which has been evaluated previously. ESR 15, CRP <0.5. Procal <0.05 Was seen on the in ER and had CTA head which was normal. ER provider spoke w/ Neurology and MRI brain w/w/o obtained given cancer history, negative for acute finding. Had trial of dexamethasone 10mg IX 1 and Valproic acid per their recommendatio ns without any significant improvement. Evaluated in room A2 with daughter Zaynab at bedside, patient reports not having relief with the Decadron and valproic acid. Headache ongoing for about a week and a half. Hx of vertigo and not feeling anything like this. Also has had migraine in the past and does not feel similar. No photophobia, nausea/vomiting, appetite OK. Her "headache" is occipital in nature with feeling like tight muscles in her back. Hx broken neck/C2 and unable to repair. Did ask about any recent stressors/sleep at home -- reports having ongoing poor sleep ongoing as well as recent stress of having to give her cat away after 7 years due to animal urinating in the house which she notes has also been stressful. No new pillows at home. She notes she did get B12 injections weekly for a month and then now to get once monthly. Also got Venofer w/ [facility] last week. Fioricet w/ PCP but reports this "knocking her out". Discussed Benadryl/Heating pad/volataren gel/CT cervical spine and pain management consultation for AM to consider injections. Last heme/oncology notes no evidence to suggest recurrence of disease from March of this year, recommended B12 injections (level 175) and PO iron supplementation and f/u PET/CT in 6 months to f/u on lymphoma as well as L lung base opacity. Will obtain CT cervical spine for further evaluated, pain management consultation in AM to ?consider occipital nerve block, ?botox injection. Previously on medications including lyrica for neuropathy but had been ineffective and no longer on these. Daughter notes that she has fibromyalgia and wondering if similar with her mother. o fevers/chills, chest pain, shortness of breath, abdominal pain, nausea or vomiting. Questions/concerns addressed at this time. Of note, she also had bottom L tooth removed two weeks ago, prior to headache starting. Principal Diagnosis (1) Cervicogenic headache: (2) Myofascial pain Discharge Exam pt had improvement in her pain and more mobility of neck otherwise was A&ox3 Discharge Data Allergies Allergy/AdvReac Type Severity Reaction Status Date / Time hornet venom Allergy Severe Anaphylaxis Verified 05/05/23 10:24 venom-wasp Allergy Severe Anaphylaxis Verified 05/05/23 10:24 Sulfa (Sulfonamide Allergy Intermediate Hives Verified 05/05/23 10:24 Antibiotics) adhesive Allergy Mild Rash Verified 05/05/23 10:24 codeine Allergy Mild Rash Verified 05/05/23 10:24 diclofenac Allergy Unknown Unknown Verified 05/05/23 10:24 famotidine Allergy Unknown Unknown Verified 05/05/23 10:24 morphine Allergy Unknown Unknown Verified 05/05/23 10:24 nitroglycerin Allergy Unknown Unknown Verified 05/05/23 10:24 ibuprofen AdvReac Intermediate "Skin Verified 05/05/23 10:24 crawling" [id number]-QbJ Reductase AdvReac Intermediate Muscle Verified 05/05/23 10:24 Inhibitor aches [Nacltfx-Pkq-Ruf Reductase Inhibitor] bendeka Allergy Severe pain Uncoded 05/05/23 10:24 Rituxmab Allergy Severe pain Uncoded 05/05/23 10:24 Consultations 05/05/23 17:49 ED Decision to Admit Stat 05/05/23 22:09 Consult Pain Management Routine Ordered Studies 05/05/23 11:27 MR brain wo/w con Stat 05/05/23 17:56 CT cervical spine wo con Urgent Hospital Course (1) Headache: ongoing headache/cervical spine/paraspinal muscle tightness over the past two weeks. ESR/CRP without elevation. Prior CTA head in ER over the past weekend negative for acute process MRI w/w/o obtained in ER given hx lymphoma without mass/lesion. Prior heme/onc notes no recurrence of disease as stated in HPI. She has received B12 injections/Venofer infusion Given Decadron/valproic acid in ER, avoiding further Discussed w/ patient and increased stress at home: 1-having to give away her cat of 7 years due to urinating in the house 2-stress from treatment of her Lymphoma and not fully recovering as quickly as she is hoping 3-poor sleep CT Cervical spine negative for acute finding Trazodone/melatonin for sleep -- did report getting some sleep overnight, appearing improved despite ongoing MSK discomfort Continue heat/voltaren Added lidocaine patch Pain management consulted, patient underwent a trigger point injection 05/08, 2 cc of ropivacaine and 20 mg of Kenalog distributed in a fanlike fashion recommending continued Celebrex and steroid taper, trazadone for sleep follow up with PCP and consider return appt to pain management (2) B-cell lymphoma: hx such, follows w/ [facility] -- no current recurrence Has received B12 weekly x 1 month, now on weekly dosing. Venofer last week, hgb stable (3) Peripheral neuropathy: hx of such, prior on lyrica/others but hasn't worked completed B12 injections outpatient Also on fentanyl patch for pain issues managed by Dr Santizo, hydrocodone as needed for breakthrough pain Consideration for Cymbalta for neuropathic pain/depression CAD Hx NSTEMI in Jun 2021, completed 1 year ASA/plavix, on ASA 81mg daily Not on BB due to LBB and baseline HR in 60s. No on BENJIE/ARB as outpatient BP controlled and no hx CHF per prior cards report GERD Continue PPI while inpatient Hx esophageal spasms, on low dose amlodipine Vertigo Continue meclizine prn. has not reported any recent issue with such (4) Insomnia: suspect contributing. Melatonin HS Trazodone added on admission, will continue as she reported getting more sleep last night than nights prior Total Time Total Time Spent Total Time Spent (In Minutes): greater than 30 minutes spent Discharge Plan Discharge Items Reason For Visit: HEADACHE Discharge Diagnosis: (1) Cervicogenic headache: (2) Myofascial pain Activity: Per Instructions section Activity Comment: as instructions given from pain management Non-emergency contact: Primary Care Provider Call non-emergency contact if: your symptoms worsen Follow-up/Referrals: Hadley Leal MD, FIPP [Physician] - Mitra Santizo MD [Primary Care Provider] - Diet: Regular Addtl Attending Provider Instructions: please rest and recover, you have been recommended to start on Celebrex and have a tapering dose of prednisone by pain management consider application of heat to area and consider outpt Physical therapy Pending Studies at Discharge: No Stand-Alone Forms: My [employer], Smoking Cessation Medications and DC Order Prescriptions: New trazodone 50 mg Tablet 50 mg PO HS Qty: 30 0RF celecoxib [Celebrex] 100 mg Capsule 100 mg PO BID Qty: 60 3RF methylprednisolone [Medrol (Basilio)] 4 mg tablets,dose pack 4 mg PO UD Qty: 18 0RF Rx Instructions: 1, three x a day for 3 days 1, two x a day for 3 days one a day for 3 days Continued aspirin 81 mg tablet,chewable 81 mg PO DAILY multivitamin Tablet 1 tab PO DAILY clonazepam [Klonopin] 0.5 mg tablet 0.5 mg PO HS PRN (Reason: Sleep) Qty: 30 0RF Rx Instructions: PDMP searched, okay to fill. hydrocodone-acetaminophen 5-325 mg tablet 1 tab PO Q6H PRN (Reason: pain) Qty: 60 0RF fentanyl 12 mcg/hr patch 72 hour 12 mcg transdermal [id number] Qty: 10 0RF potassium gluconate 595 mg (99 mg) tablet 99 mg PO QAM meclizine [Motion Sickness (meclizine)] 25 mg tablet 25 mg PO TID PRN (Reason: Vertigo) Qty: 30 epinephrine [EpiPen] 0.3 mg/0.3 mL auto-injector 0.3 mg subcut UD PRN (Reason: Anaphylaxis) Qty: 2 2RF lorazepam [Ativan] 0.5 mg tablet 0.5 mg PO BID PRN (Reason: anxiety) Qty: 45 2RF cyclobenzaprine 10 mg tablet 10 mg PO TID PRN (Reason: muscle spasm) Qty: 14 0RF amlodipine [Norvasc] 2.5 mg tablet 2.5 mg PO QAM Patient Comments: HS rosuvastatin 10 mg tablet 10 mg PO DAILY dexlansoprazole 60 mg capsule,biphase delayed releas 60 mg PO QAM Admission Data Admit Date/Time: 05/07/23 15:57 Attending Provider: Agustín Guerra Admit Provider: Aashish Porras Primary Care Provider: Mitra Santizo Other Providers: Aashish Porras ; Hadley Leal Coding Level of Care Code 14827 INP/OBS DISCH >30 MIN Diagnoses Headache R51.9 B-cell lymphoma C85.10 Peripheral neuropathy G62.9 Insomnia G47.00
--- NOTE | 2023-05-08 15:38 | Communication Note ---
Date of Service: May 08, 2023 By CMS guidelines, a determination that the admission or continued stay is not medically necessary has been made by a member of the UR committee and a phys ician for this hospital stay, therefore a Code 44 will be completed and the Inpatient admission will be changed to outpatient.
[2023-05-09] MEDS ORDERED: methylPREDNISolone 4 MG TAB PO SCH (07:00)
[2023-05-10] MEDS ORDERED: methylPREDNISolone 4 MG TAB PO SCH (07:00)
[2023-05-11] MEDS ORDERED: methylPREDNISolone 4 MG TAB PO SCH (07:00)
== END 2023-05-08 18:08 | disposition home or self-care (01) | DRG 103 ==
LOC: 3N 08:58 → ED 08:58 → SUATTDRO 18:28 → 3N 21:58 → SUATTDRO 05-07 15:57
DX: G62.9 Polyneuropathy, unspecified; G44.86 Cervicogenic headache; Z91.048 Other nonmedicinal substance allergy status; Z79.82 Long term (current) use of aspirin; Z88.5 Allergy status to narcotic agent; Z87.891 Personal history of nicotine dependence; C83.31 Diffuse large B-cell lymphoma, lymph nodes of head, face, and neck; Z88.8 Allergy status to other drugs, medicaments and biological substances; R42 Dizziness and giddiness; Z91.030 Bee allergy status; G47.00 Insomnia, unspecified; M79.18 Myalgia, other site; Z79.899 Other long term (current) drug therapy; K21.9 Gastro-esophageal reflux disease without esophagitis; Z88.6 Allergy status to analgesic agent; Z88.2 Allergy status to sulfonamides

== ENCOUNTER 2023-06-09 14:50 | Observation (INO) ==
--- NOTE | 2023-06-09 15:01 | Emergency Department Note ---
Impression & Plan Chest pain ADMIT ED Provider Note HPI: The patient is a very pleasant 77-year-old female with history of coronary artery disease, presents emergency department with a chief complaint of chest pain. Patient states that her pain began about an hour and 15 minutes prior to arrival. Patient states that the pain is substernal in nature, currently she states that her pain is very tolerable and she measures it at about a 3 out of 10. On arrival here to the ED the patient is alert, she is hemodynamically stable and otherwise appears to be in no acute distress. Patient is saturating well on room air on arrival. Patient was given full dose aspirin via EMS prior to arrival. ROS: - Per HPI Differential Diagnosis: Acute coronary syndrome, pulmonary embolism, aortic dissection, pneumothorax, hemothorax, pneumonia, amongst other potential pathologies. *Outpatient medications and allergy history reviewed. *Pertinent external medical records reviewed. PE: General: Alert HEENT: Normocephalic, trachea midline Eyes: Extraocular eye movement is intact, no scleral erythema Pulmonary: Clear to auscultation bilaterally, no wheezing Cardio: Regular rate and rhythm GI: Abdomen is soft to palpation : No suprapubic tenderness MSK: No evidence of trauma or malformation of the extremities, no edema Skin: No evidence of rash Neuro: Alert, no focal deficits Psychiatric: Cooperative library monitor: (As interpreted by myself): - An order was placed for continuous cardiac monitoring - Patient was noted to be in sinus rhythm with a rate of 95 EKG: (As interpreted by myself): Rate: 97 Rhythm: Normal sinus rhythm Intervals: QRS 128 ms, otherwise within normal limits (known left bundle branch block) ST changes: No ST elevation Time: 1458 Medical Decision Making: On arrival here to the ED the patient appears to be in no acute distress, complains of some mild substernal chest discomfort. IV was established via EMS, patient was maintained on traffic monitor specialist shortly after she arrived here in the ED. EKG obtained shows evidence of normal sinus rhythm with pre-existing left bundle branch block, I do not see any acute ischemic changes per my interpretation. Lab work does not show any leukocytosis, hemoglobin is normal, platelet count is normal, CMP does not show any critical findings, the patient's initial troponin is negative here in the ED. Chest x-ray does not show any evidence of acute disease per radiology interpret ation. On my reassessment patient is resting comfortably in bed. She states that her chest pain is resolved however given her history of coronary artery disease status post multiple stents in addition to chest pain just caring about an hour prior to arrival I feel she would benefit from inpatient admission for observation. Patient does state that this pain does feel similar to chest pain she has had in the past with ACS. Patient is in agreement to this. Case was discussed with the admitting hospitalist service for [facility] hospitalist group, Cem Sow PA-C, and the patient was placed for admission in stable condition. Consultants: Hospitalist service, Dr. Howell Disposition discussion held by myself with: Patient and daughter at bedside Diagnosis: 1. Chest pain, acute 2. History of coronary artery disease Disposition: Admission Zeeshan Oconnor DO Emergency Medicine Past Med/Surg History Medical History Bundle branch block, left Cervicogenic headache Degenerative disc disease Hyperlipidemia Hypokalemia Myofascial pain Nerve pain Opioid dependence Osteoarthritis Osteoporosis Spinal stenosis of lumbar region Surgical History H/O heart artery stent History of bilateral cataract extraction History of bilateral tubal ligation History of carpal tunnel release History of colonoscopy with polypectomy History of esophagogastroduodenoscopy (EGD) History of surgery Family History Father Colorectal cancer Mother Myocardial infarction Colorectal cancer Hearing loss Grandmother (Paternal) Stroke Sister Stroke Factor V Leiden mutation Daughter Family history of reaction to anesthesia Brother Myocardial infarction Sister Medical history unknown Son No problems noted. Son No problems noted. Son Ulcerative colitis Daughter No problems noted. Daughter No problems noted. Other Heart disease Denies family history of Ovarian cancer Prostate cancer Breast cancer Social History Smoking Status: Never smoker Tobacco Type: Cigarettes Cigarettes Per Day: 2 PPD x 10 yrs;Quit 1972; Second Hand Exposure: No; Do You Dip or Chew Tobacco: No; Hx Alcohol Use: No Hx Substance Use: No Preferred Language: Croatian Communication Ability: Effective Visual Impairment: Limited Hearing Ability: Normal Operations Business Partner Required: No Beliefs That Will Affect Care: None marital status: / Current Living Situation: Alone current occupational status: retired current occupation: Many occupations How many Children do You have: 5 Feels Safe at Home: Yes Childhood Exposure to Second-Hand Smoke: Yes Diet: regular caffeine: Yes (1 cup/day) during the past year weight has: remained stable Dental Care, Regularly: Yes Physical Activity Frequency: Daily Physical Activity Frequency Comment: Daily housework, laundry, and minimal walking Seatbelt Use: always Sunscreen Use: No Assistive Devices: Glasses Allergies Allergies Allergy/AdvReac Type Severity Reaction Status Date / Time hornet venom Allergy Severe Anaphylaxis Verified 05/30/23 10:49 venom-wasp Allergy Severe Anaphylaxis Verified 05/30/23 10:49 celecoxib Allergy Intermediate Rash Verified 05/30/23 12:22 Sulfa (Sulfonamide Allergy Intermediate Hives Verified 05/30/23 10:49 Antibiotics) valproic acid Allergy Intermediate Rash Verified 05/30/23 12:22 adhesive Allergy Mild Rash Verified 05/30/23 10:49 amoxicillin Allergy Mild DRESS Verified 05/30/23 10:55 SYNDROM codeine Allergy Mild Rash Verified 05/30/23 10:49 diclofenac Allergy Unknown Unknown Verified 05/30/23 10:49 famotidine Allergy Unknown Unknown Verified 05/30/23 10:49 morphine Allergy Unknown Unknown Verified 05/30/23 10:49 nitroglycerin Allergy Unknown Unknown Verified 05/30/23 10:49 bendamustine [From [place]] AdvReac Severe PAIN Verified 05/30/23 10:49 rituximab AdvReac Severe PAIN Verified 05/30/23 10:49 ibuprofen AdvReac Intermediate "Skin Verified 05/30/23 10:49 crawling" Xtdjddo-[id number]-VtP Reductase AdvReac Intermediate Muscle Verified 05/30/23 10:49 Inhibitor aches [Jwluoic-Eds-Sbd Reductase Inhibitor] systemic steroid Allergy Intermediate Rash Uncoded 05/30/23 10:49 Home Meds Home Medications Medication Instructions Recorded Confirmed meclizine 25 mg tablet (Motion 25 mg PO TID PRN Vertigo #30 tabs 03/30/19 06/09/23 Sickness (meclizine)) amlodipine 2.5 mg tablet (Norvasc) 2.5 mg PO QAM 07/03/21 06/09/23 rosuvastatin 10 mg tablet 10 mg PO DAILY 07/25/22 06/09/23 aspirin 81 mg chewable tablet 81 mg PO DAILY 08/26/22 06/09/23 multivitamin 1 tab PO DAILY 08/26/22 06/09/23 dexlansoprazole 60 mg 60 mg PO QAM 10/07/22 06/09/23 capsule,biphase delayed release potassium chloride 20 mEq 20 meq PO DAILY 06/09/23 06/09/23 tablet,extended release(part/cryst) triamcinolone acetonide 0.1 % 1 applic topical UD 06/09/23 06/09/23 topical ointment Previous Rx's Medication Instructions Recorded epinephrine 0.3 mg/0.3 mL 0.3 mg (0.3 mL) subcut UD PRN 02/18/22 injection, auto-injector (EpiPen) Anaphylaxis #2 ea lorazepam 0.5 mg tablet (Ativan) 0.5 mg PO BID PRN anxiety #45 tabs 10/14/22 cyclobenzaprine 10 mg tablet 10 mg PO TID PRN muscle spasm #14 05/02/23 tabs trazodone 50 mg tablet 50 mg PO HS #30 tabs 05/08/23 hydrocodone 5 mg-acetaminophen 325 1 tab PO Q6H PRN pain #60 tabs 05/15/23 mg tablet clonazepam 0.5 mg tablet (Klonopin) 0.5 mg PO HS PRN Sleep #30 tabs 05/30/23 magnesium oxide 500 mg tablet 500 mg PO DAILY #30 tabs 05/30/23 fentanyl 12 mcg/hr transdermal 12 mcg transdermal CQ72HR #10 ea 06/06/23 patch Results & Data (ED) Vital Signs Vital Signs - 24 hr 06/09/23 15:11 06/09/23 14:58 06/09/23 14:53 Pulse Rate 94 H 92 H 92 H Pulse Rate [Bilateral] Respiratory Rate 18 20 Respiratory Depth Blood Pressure 115/83 Blood Pressure [Right Arm] Blood Pressure Mean 93 Blood Pressure Mean [Right Arm] Pulse Oximetry 94 95 Oxygen Delivery Method Room Air Room Air Sepsis Recent Fever Within 48 Hours No Sepsis New/Unexplained Change in Mental Status N/A Sepsis Action Taken by Nursing No Action Required 06/09/23 14:53 06/09/23 14:53 Pulse Rate Pulse Rate [Bilateral] 92 H Respiratory Rate 18 Respiratory Depth Normal Blood Pressure Blood Pressure [Right Arm] 115/83 Blood Pressure Mean Blood Pressure Mean [Right Arm] 93 Pulse Oximetry 95 95 Oxygen Delivery Method Room Air Room Air Sepsis Recent Fever Within 48 Hours Sepsis New/Unexplained Change in Mental Status Sepsis Action Taken by Nursing Laboratory Data 06/09/23 15:00 06/09/23 15:00 Lab Results 06/09/23 06/09/23 06/09/23 Range/Units 15:00 15:00 15:00 WBC 5.54 (4.8-10.8) K/ul RBC 4.43 (4.20-5.40) M/uL Hgb 13.9 (12.0-16.0) g/dl Hct 41.7 (37.0-47.0) % MCV 94.1 (80.0-100.0) fL MCH 31.4 (25.0-34.0) pg MCHC 33.3 (32.0-36.0) g/dL RDW Std Deviation 64.6 H (36.4-46.3) fL RDW Coeff of Deon 18.5 H (11.5-14.5) % Plt Count 237 (130-400) K/uL MPV 9.9 (9.4-12.4) fL Immature Gran % (Auto) 0.9 % Neut % (Auto) 74.4 % Lymph % (Auto) 11.0 % Bradley % (Auto) 8.3 % Eos % (Auto) 4.9 % Baso % (Auto) 0.5 % Neut # (Auto) 4.12 (1.40-6.50) K/uL Lymph # (Auto) 0.61 L (1.20-3.40) K/uL Bradley # (Auto) 0.46 (0.11-0.59) K/uL Eos # (Auto) 0.27 (0.00-0.50) K/uL Baso # (Auto) 0.03 (0.00-0.20) K/uL Immature Gran # (Auto) 0.05 (0.01-0.20) K/uL PT 10.0 (9.0-12.0) Seconds INR 0.9 (0.9-1.1) Sodium 139 (136-145) mmol/L Potassium 3.7 (3.5-5.1) mmol/L Chloride 104 (98-107) mmol/L Carbon Dioxide 26 (21-32) mmol/L Anion Gap 9 (3-11) BUN 12 (6-23) mg/dl Creatinine 1.11 (0.6-1.2) mg/dl Est Cr Clr Drug Dosing 47.0 ml/min Est GFR ( Amer) 55.1 ml/min Est GFR (Non-Af Amer) 47.5 ml/min BUN/Creatinine Ratio 10.8 (10-20) Glucose 104 H (70-99(Fasting)) mg/dl Calcium 8.8 (8.6-10.3) mg/dl Total Bilirubin 0.4 (0.2-1.0) mg/dl AST 17 (13-39) U/L ALT 21 (7-52) U/L Alkaline Phosphatase 49 (34-104) U/L Troponin I High Sens 13.1 (0-14) pg/ml Total Protein 6.7 (6.0-8.3) gm/dl Albumin 4.2 (3.4-5.0) gm/dl Globulin 2.5 (2.5-4.0) gm/dl Albumin/Globulin Ratio 1.7 (0.9-2) Lipase 15 (11-82) U/L Imaging Data Radiologist's Impression: Chest X-Ray 06/09/23 14:53 XR chest 1V portable HISTORY: Chest pain, nonspecific COMPARISON: Chest 05/18/2023. FINDINGS: No pneumothorax. No pleural effusions. The cardiac silhouette remains top normal in size. A few left basilar linear densities favor subsegmental atelectasis or scarring. No new focal lung consolidations to suggest a pneumonia. No evidence for pulmonary edema. No acute fractures identified. The small left lower lobe density seen on the 03/12/[address] is not well evaluated by this modality. There is a moderate hiatus hernia again noted. IMPRESSION: No significant change compared to the prior study. No acute process. ACT 112: Negative or not required by law. Electronically signed by: Vincenzo Snyder M.D. 06/09/2023 4:11 PM Discharge Plan Visit Data Chief Complaint: Chest Pain Stated Complaint: CHEST PAIN ED Provider: Zeeshan Oconnor Discharge Problem: Chest pain Forms Stand Alone Forms: [facility] Prescriptions Prescriptions: No Action aspirin 81 mg tablet,chewable 81 mg PO DAILY multivitamin Tablet 1 tab PO DAILY hydrocodone-acetaminophen 5-325 mg tablet 1 tab PO Q6H PRN (Reason: pain) Qty: 60 0RF fentanyl 12 mcg/hr patch 72 hour 12 mcg transdermal CQ72HR Qty: 10 0RF meclizine [Motion Sickness (meclizine)] 25 mg tablet 25 mg PO TID PRN (Reason: Vertigo) Qty: 30 clonazepam [Klonopin] 0.5 mg tablet 0.5 mg PO HS PRN (Reason: Sleep) Qty: 30 0RF Rx Instructions: PDMP searched, okay to fill. magnesium oxide 500 mg tablet 500 mg PO DAILY Qty: 30 0RF epinephrine [EpiPen] 0.3 mg/0.3 mL auto-injector 0.3 mg subcut UD PRN (Reason: Anaphylaxis) Qty: 2 2RF lorazepam [Ativan] 0.5 mg tablet 0.5 mg PO BID PRN (Reason: anxiety) Qty: 45 2RF cyclobenzaprine 10 mg tablet 10 mg PO TID PRN (Reason: muscle spasm) Qty: 14 0RF amlodipine [Norvasc] 2.5 mg tablet 2.5 mg PO QAM potassium chloride 20 mEq tablet,ER particles/crystals 20 meq PO DAILY triamcinolone acetonide 0.1 % ointment 1 applic TOPICAL UD rosuvastatin 10 mg tablet 10 mg PO DAILY dexlansoprazole 60 mg capsule,biphase delayed releas 60 mg PO QAM trazodone 50 mg Tablet 50 mg PO HS Qty: 30 0RF Referrals Referrals: Mitra Santizo MD [Primary Care Provider] -
[2023-06-09 15:38] LABS: Basophils # (auto) 0.03 K/uL (0.00-0.20); Basophils % (auto) 0.5 %; Eosinophils # (auto) 0.27 K/uL (0.00-0.50); Eosinophils % (auto) 4.9 %; Hematocrit (blood only) 41.7 % (37.0-47.0); Hemoglobin 13.9 g/dl (12.0-16.0); Immature Granulocytes # (auto) 0.05 K/uL (0.01-0.20); Immature Granulocytes % (auto) 0.9 %; Lymphocytes # (auto) 0.61 K/uL (1.20-3.40); Mean Corpuscular Hemoglobin 31.4 pg (25.0-34.0); Mean Corpuscular Hgb Conc 33.3 g/dL (32.0-36.0); Mean Corpuscular Volume 94.1 fL (80.0-100.0); Mean Platelet Volume 9.9 fL (9.4-12.4); Monocytes # (auto) 0.46 K/uL (0.11-0.59); Monocytes % (auto) 8.3 %; Neutrophils # (auto) 4.12 K/uL (1.40-6.50); Neutrophils % (auto) 74.4 %; Platelet Count 237 K/uL (130-400); RDW Coefficient of Variation 18.5 % (11.5-14.5); RDW Standard Deviation 64.6 fL (36.4-46.3); Red Blood Count 4.43 M/uL (4.20-5.40); White Blood Count 5.54 K/ul (4.8-10.8)
[2023-06-09 16:05] LABS: Albumin Globulin Ratio 1.7 (0.9-2); Albumin Level 4.2 gm/dl (3.4-5.0); BUN Creatinine Ratio 10.8 (10-20); Bilirubin,Total 0.4 mg/dl (0.2-1.0); Calcium 8.8 mg/dl (8.6-10.3); Est GFR (African American) 55.1 ml/min; Est GFR (Non-African American) 47.5 ml/min; Globulin 2.5 gm/dl (2.5-4.0); Potassium 3.7 mmol/L (3.5-5.1); Total Protein 6.7 gm/dl (6.0-8.3)
[2023-06-09 16:12] LABS: Troponin I High Sensitivity 13.1 pg/ml (0-14)
--- NOTE | 2023-06-09 16:12 | XRay Report ---
XR chest 1V portable HISTORY: Chest pain, nonspecific COMPARISON: Chest 05/18/2023. FINDINGS: No pneumothorax. No pleural effusions. The cardiac silhouette remains top normal in size. A few left basilar linear densities favor subsegmental atelectasis or scarring. No new focal lung cons olidations to suggest a pneumonia. No evidence for pulmonary edema. No acute fractures identified. Th e small left lower lobe density seen on the 03/12/[address] is not well evaluated by this modality. There is a moderate hiatus hernia again noted. IMPRESSION: No significant change compared to the prior study. No acute process. ACT 112: Negative or not required by law. Electronically signed by: Vincenzo Snyder M.D. 06/09/2023 4:11 PM
[2023-06-09 16:13] LABS: INR 0.9 (0.9-1.1)
--- NOTE | 2023-06-09 16:39 | History & Physical Report ---
Date of Service June 09, 2023 Assessment & Plan (1) Chest pain: Plan: -Admit to med/tele -Currently stable and asymptomatic -Experienced approximately 1 hour of substernal chest pressure, which woke her up from sleep this afternoon at 1pm -Confirms symptoms felt similar to her previous need for PCI and ASH placement to the Circumflex in 2020 -At this time the etiology of her symptoms could be associated with her known CAD, patient also has a hx of esophageal spasm and is on daily amlodipine for this due to previous bradycardia -Does not appear to be musculoskeletal as it was not reproducible on palpation -Did occur while lying flat, will treat with famotidine and pantoprazole to monitor for improvement in symptoms related to refulx -S/P 324 mg Aspirin by EMS, had her am dose of 81 mg , states the aspirin improved her symptoms -No acute ECG changes, chest pain free at this time, first high sen trop WNL -Will repeat a 2 hour high sen trop now, continue to monitor on tele -Will obtain TTE tomorrow, will consult [facility] -HH diet -SQ lovenox for DVT PPX -AM CBC, BMP, Mag, PT/INR (2) Spinal stenosis of lumbar region: Plan: -Will continue chronic pain regimen with fentanyl patch (in place, changed every Friday and Friday) -Continue prn hydrocodone-acetaminophen q12h (3) Opioid dependence: Plan: -See spinal stenosis (4) Diffuse large B cell lymphoma: Plan: -Follows with Dr. Espino -Has been monitoring, continue to FU with Dr. Espino (5) Benign positional vertigo: Plan: -PRN meclizine (6) HTN (hypertension), benign: Plan: -Stable -Continue amlodipine for HTN and esophageal spasms -Continue daily lasix (7) Hyperlipidemia: Plan: -Continue statin (8) H/O heart artery stent: Plan: -S/P PCI and ASH placement to the Circumflex artery in 2020 -Currently on Aspirin therapy, continue tomorrow with statin therapy Plan The patient was discussed with Dr. Howell at the time of the admission History of Present Illness Chief Complaint: Chest pain Primary Care Provider: Mit[facility] Santizo [facility] is a 77 year old female with a PMH significant for CAD S/P PCI and ASH placement in 2020 for Circumflex occlusion, LBBB, esophageal spasms (on Amlodipine), GERD, diffuse B-cell lymphoma follows with Dr. Espino and in remission, chronic back pain, opioid dependence, HTN, and BPPV who presented to the [facility] ED on 06/09 via EMS for acute onset of substernal chest pain. In the ED, vitals were stable. Labs including CBC, CMP, and initial high sen trop were WNL. Chest xray was read as "No significant change compared to the prior study. No acute process.". We were asked to admit the patient for chest pain rule out due to her age and hx of recent PCI and ASH placement. The patient was given 324 mg Aspirin by EMS in route to the ED. At the time of the exam the patient was sitting in bed in no acute distress with her Daughter sitting bedside. The patient states that she was feeling "unwell" earlier today with chills and sweating, because of this she laid down to take a nap. She was woken up from sleep at approximately 1300 this afternoon with substernal chest pressure/heaviness. She denies radiation of the pain and states that it lasted for approximately one hour. She took 2 Rolaids without change in her symptoms. When asked, she states that this chest discomfort feels very similar to her chest discomfort in 2020 when she required PCI and ASH placement. She confirms that she is currently chest pain free. She does not feel as though this chest discomfort feels as though it is related to her reflux. We discussed code status, the patient confirmed that she is a DNR/DNI and would want her daughter to make medical decisions for her if she could not make them herself. Please refer to Dr. Howell's attestation for any changes to the treatment plan Allergies Allergy/AdvReac Type Severity Reaction Status Date / Time hornet venom Allergy Severe Anaphylaxis Verified 05/30/23 10:49 venom-wasp Allergy Severe Anaphylaxis Verified 05/30/23 10:49 celecoxib Allergy Intermediate Rash Verified 05/30/23 12:22 Sulfa (Sulfonamide Allergy Intermediate Hives Verified 05/30/23 10:49 Antibiotics) valproic acid Allergy Intermediate Rash Verified 05/30/23 12:22 adhesive Allergy Mild Rash Verified 05/30/23 10:49 amoxicillin Allergy Mild DRESS Verified 05/30/23 10:55 SYNDROM codeine Allergy Mild Rash Verified 05/30/23 10:49 diclofenac Allergy Unknown Unknown Verified 05/30/23 10:49 famotidine Allergy Unknown Unknown Verified 05/30/23 10:49 morphine Allergy Unknown Unknown Verified 05/30/23 10:49 nitroglycerin Allergy Unknown Unknown Verified 05/30/23 10:49 bendamustine [From [place]] AdvReac Severe PAIN Verified 05/30/23 10:49 rituximab AdvReac Severe PAIN Verified 05/30/23 10:49 ibuprofen AdvReac Intermediate "Skin Verified 05/30/23 10:49 crawling" Ovmhjdy-BIQ-AcC Reductase AdvReac Intermediate Muscle Verified 05/30/23 10:49 Inhibitor aches [Bpxmgte-Cfb-Rwt Reductase Inhibitor] systemic steroid Allergy Intermediate Rash Uncoded 05/30/23 10:49 Home Medications Medication Instructions Recorded Confirmed Type meclizine 25 mg tablet (Motion 25 mg PO TID PRN Vertigo #30 tabs 03/30/19 06/09/23 History Sickness (meclizine)) amlodipine 2.5 mg tablet (Norvasc) 2.5 mg PO QAM 07/03/21 06/09/23 History epinephrine 0.3 mg/0.3 mL 0.3 mg (0.3 mL) subcut UD PRN 02/18/22 06/09/23 Rx injection, auto-injector (EpiPen) Anaphylaxis #2 ea rosuvastatin 10 mg tablet 10 mg PO DAILY 07/25/22 06/09/23 History aspirin 81 mg chewable tablet 81 mg PO DAILY 08/26/22 06/09/23 History multivitamin 1 tab PO DAILY 08/26/22 06/09/23 History dexlansoprazole 60 mg 60 mg PO QAM 10/07/22 06/09/23 History capsule,biphase delayed release lorazepam 0.5 mg tablet (Ativan) 0.5 mg PO BID PRN anxiety #45 tabs 10/14/22 06/09/23 Rx cyclobenzaprine 10 mg tablet 10 mg PO TID PRN muscle spasm #14 05/02/23 06/09/23 Rx tabs clonazepam 0.5 mg tablet (Klonopin) 0.5 mg PO HS PRN Sleep #30 tabs 05/30/23 06/09/23 Rx magnesium oxide 500 mg tablet 500 mg PO DAILY #30 tabs 05/30/23 06/09/23 Rx fentanyl 12 mcg/hr transdermal 12 mcg transdermal CQ72HR #10 ea 06/06/23 06/09/23 Rx patch furosemide 20 mg tablet 20 mg PO DAILY 06/09/23 06/09/23 History hydrocodone 5 mg-acetaminophen 325 1 tab PO Q12H 06/09/23 06/09/23 History mg tablet potassium chloride 20 mEq 20 meq PO DAILY 06/09/23 06/09/23 History tablet,extended release(part/cryst) Past Med/Surg History Medical History Bundle branch block, left Cervicogenic headache Degenerative disc disease Hyperlipidemia Hypokalemia Myofascial pain Nerve pain Opioid dependence Osteoarthritis Osteoporosis Spinal stenosis of lumbar region Surgical History H/O heart artery stent History of bilateral cataract extraction History of bilateral tubal ligation History of carpal tunnel release History of colonoscopy with polypectomy History of esophagogastroduodenoscopy (EGD) History of surgery Family History Father Colorectal cancer Mother Myocardial infarction Colorectal cancer Hearing loss Grandmother (Paternal) Stroke Sister Stroke Factor V Leiden mutation Daughter Family history of reaction to anesthesia Brother Myocardial infarction Sister Medical history unknown Son No problems noted. Son No problems noted. Son Ulcerative colitis Daughter No problems noted. Daughter No problems noted. 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 Beliefs That Will Affect Care: None marital status: / Current Living Situation: Alone current occupational status: retired current occupation: Many occupations How many Children do You have: 5 Feels Safe at Home: Yes Childhood Exposure to Second-Hand Smoke: Yes Diet: regular caffeine: Yes (1 cup/day) during the past year weight has: remained stable Dental Care, Regularly: Yes Physical Activity Frequency: Daily Physical Activity Frequency Comment: Daily housework, laundry, and minimal walking Seatbelt Use: always Sunscreen Use: No Assistive Devices: Glasses Physical Exam Physical Exam: Physical Exam: General: In no acute distress, stated age, well-nourished, good hygiene HEENT: Normocephalic, atraumatic, no scleral icterus, pupils around round, symmetrical, and reactive to light, moist mucus membranes, trachea midline, no thyromegaly Chest/Pulm: No reproducible pain on palpation of the chest, No respiratory distress, symmetrical chest expansion, clear breath sounds throughout Cardiac: RRR, no murmurs noted Abdomen: Negative for ascites and bruising, normoactive bowel sounds, soft, non-tender to palpation throughout Musculoskeletal: Symmetrical and without signs of acute trauma, upper and lower extremities with full ROM, no atrophy, spasticity, or flaccidity Extremities: Radial, dorsalis pedis, and posterior tibial pulses are intact and symmetrical, no edema noted in the BL LE's Skin: Warm, dry, no rashes , lesions, or scars noted Neuro: Alert and oriented to person, place, month, year, and president, no focal defects, no tremors noted Psych: No acute distress, calm and cooperative during the exam Results & Data Results & Data Vital Signs (Past 12 Hours) Vital Signs Pulse Pulse Resp BP BP Pulse Ox O2 Del Method 06/09/23 14:53 92 H 18 115/83 95 Room Air 06/09/23 14:53 95 Room Air 06/09/23 14:53 92 H 20 115/83 95 Room Air 06/09/23 14:58 92 H 18 94 Room Air 06/09/23 15:11 94 H Laboratory Results Abnormal lab results 06/09/23 06/09/23 Range/Units 15:00 15:00 RDW Std Deviation 64.6 H (36.4-46.3) fL RDW Coeff of Deon 18.5 H (11.5-14.5) % Lymph # (Auto) 0.61 L (1.20-3.40) K/uL Glucose 104 H (70-99(Fasting)) mg/dl Diagnostic Findings Chest X-Ray 06/09/23 14:53 XR chest 1V portable HISTORY: Chest pain, nonspecific COMPARISON: Chest 05/18/2023. FINDINGS: No pneumothorax. No pleural effusions. The cardiac silhouette remains top normal in size. A few left basilar linear densities favor subsegmental atelectasis or scarring. No new focal lung consolidations to suggest a pneumonia. No evidence for pulmonary edema. No acute fractures identified. The small left lower lobe density seen on the 03/12/[address] is not well evaluated by this modality. There is a moderate hiatus hernia again noted. IMPRESSION: No significant change compared to the prior study. No acute process. ACT 112: Negative or not required by law. Electronically signed by: Vincenzo Snyder M.D. 06/09/2023 4:11 PM ECG Additional Comments: Known LBBB, no acute ST segment or T-wave changes noted Code Status & VTE Plan Code Status DNR/DNI VTE Prophylaxis Plan VTE Prophylaxis will be ordered: Yes Supervising Physician Co-Signing Physician Notes Patient seen and examined, chart reviewed, case discussed with Cem Sow PA-C and I agree with the assessment and plan as above except as otherwise noted Labs and images reviewed "Olaf" is a 77yo F with a hx oc CAD and PCI x2 stents who presented with severe substernal chest pressure . She is seen with her daughter at the bedside. She notes that she does get esophageal spasms but feels that these are very different in quality and lower location than her cardiac chest pain with her prior heart attack. Pain that awoke her this morning did feel different from her esophageal spasms in the past. She currently has no pain. She did not have any shortness of breath, sweating, lightheadedness or dizziness with the chest pain that occurred this morning. Overall with a strong pressure quality under her sternum and had pain for around 2 hours before it resolved. Gradual improvement until became pain free. Was laying down at rest when episode occured. Sgarbossa criteria not met in ER, pt w/ hx of pre-existing LBBB. Initial high-sensitivity troponin is negative. Given onset of pain shortly before presentation to her repeat is ordered. Patient does describe pain as waking her from sleep and very similar to her initial OK, although is now completely pain free. No shortness of breath, no diaphoresis with it. No angina with activities, no Price preceding this. Chest pain, angina vs non-cardiac History of NSTEMI June 2021, PCI with ASH to circumflex, 30 to 40% mid LAD disease residual noted. Was on ASA/Plavix for 1 year then narrowed to aspirin monotherapy Patient not on a beta-jocelyne at baseline due to borderline resting bradycardia. No BENJIE/ARB as outpatient with well-controlled BP w/ high risk history and similar feeling to prior OK recommend overnight observation, echo, and troponin trend. Agree with assessment and management above. Heart rate is sinus, tachycardic on admission. Lungs are clear no respiratory distress. Defer heparinization at bedside, if echo abnormalities/rising trop/recurrent pain --> heparinize & consult cardiology. Pt is not able to tolerate Continue aspirin Continue rosuvastatin - ddx incldes GI/esophageal spasm. Patient has also had treatment with doxorubicin, is at risk for cardiomyopathy. Repeat TTE is pending GERD, history of esophageal spasms Does have a history of esophageal spasms for which she is on low-dose amlodipine Continue low-dose amlodipine, continue PPI. If acute episode recurs, may trial short acting nitrate paste/isosorbide Agree w management of chronic issues otherwise as above PG Care Time/CCT Total # of Minutes Spent Total Time Spent with Patient: Total time spent is greater than 50% in coordination of care (as documented) at patient's floor/unit and/or counseling patient: Coding [place] [address] INT INP/OBS CARE 2/55MIN Patient Type Established History Comprehensive Exam Comprehensive Medical Decision Making Moderate Complexity Diagnoses Chest pain R07.9 Spinal stenosis of lumbar region M48.061 Opioid dependence F11.20 Diffuse large B cell lymphoma C83.30 Benign positional vertigo H81.10 HTN (hypertension), benign I10 Hyperlipidemia E78.5 H/O heart artery stent Z95.5
[2023-06-09] MEDS ORDERED: FAMOTIDINE 20 MG in SYRINGE 3 ML IV STA (17:02)
[2023-06-09] MEDS ORDERED: LORazepam 0.5 MG TAB PO PRN (17:13)
[2023-06-09] MEDS ORDERED: clonazePAM 0.5 MG TAB PO PRN (17:13)
[2023-06-09] MEDS ORDERED: PANTOprazole 40 MG TAB PO STA (17:16)
[2023-06-09] MEDS ORDERED: fentaNYL 12 MCG/HR TDSY TD SCH (18:00)
[2023-06-09] MEDS: HYDROCODONE/ACETAMOPHEN 5/325MG TAB PO SCH (18:01)
[2023-06-09] MEDS: ENOXAPARIN INJ 40 MG/0.4 ML SYR SQ SCH (20:43)
[2023-06-10] MEDS: CHECK fentaNYL PATCH PLACEMENT SCH ×4 (01:03→23:08)
[2023-06-10 05:05] LABS: Basophils # (auto) 0.02 K/uL (0.00-0.20); Basophils % (auto) 0.5 %; Eosinophils # (auto) 0.26 K/uL (0.00-0.50); Eosinophils % (auto) 6.5 %; Hematocrit (blood only) 37.8 % (37.0-47.0); Hemoglobin 12.8 g/dl (12.0-16.0); Immature Granulocytes # (auto) 0.05 K/uL (0.01-0.20); Immature Granulocytes % (auto) 1.3 %; Lymphocytes % (auto) 17.5 %; Mean Corpuscular Hemoglobin 31.8 pg (25.0-34.0); Mean Corpuscular Hgb Conc 33.9 g/dL (32.0-36.0); Monocytes # (auto) 0.43 K/uL (0.11-0.59); Monocytes % (auto) 10.8 %; Neutrophils # (auto) 2.54 K/uL (1.40-6.50); Neutrophils % (auto) 63.4 %; Platelet Count 235 K/uL (130-400); RDW Coefficient of Variation 18.8 % (11.5-14.5); RDW Standard Deviation 65.3 fL (36.4-46.3); Red Blood Count 4.02 M/uL (4.20-5.40)
[2023-06-10 05:20] LABS: Calcium 8.6 mg/dl (8.6-10.3); Creatinine Clr Calc Pharmacy 52.2 ml/min; Est GFR (African American) 62.5 ml/min; Est GFR (Non-African American) 53.9 ml/min; Magnesium 2.3 mg/dl (1.7-2.4); Potassium 3.9 mmol/L (3.5-5.1)
[2023-06-10 05:27] LABS: Troponin I High Sensitivity 12.2 pg/ml (0-14)
[2023-06-10 05:42] LABS: INR 0.9 (0.9-1.1); Prothrombin Time 10.3 Seconds (9.0-12.0)
[2023-06-10] MEDS: HYDROCODONE/ACETAMOPHEN 5/325MG TAB PO SCH ×2 (06:04→17:46)
[2023-06-10] MEDS: FUROSEMIDE 20 MG TAB PO SCH (08:23)
[2023-06-10] MEDS: ROSUVASTATIN CALCIUM 10 MG TAB PO SCH (08:24)
[2023-06-10] MEDS: amLODIPine BESYLATE 5 MG TAB PO SCH (08:25)
[2023-06-10] MEDS: POTASSIUM CHLORIDE CRTAB 20 MEQ TABCR PO SCH (08:27)
[2023-06-10] MEDS: ASPIRIN 81 MG CHEW PO SCH (08:27)
[2023-06-10] MEDS: MAGNESIUM OXIDE 400 MG TAB PO SCH (08:28)
[2023-06-10] MEDS: PANTOprazole 40 MG TAB PO SCH (08:29)
[2023-06-10] MEDS ORDERED: fentaNYL 12 MCG/HR TDSY TD SCH (09:00)
--- NOTE | 2023-06-10 10:21 | Cardiology Consultation ---
Date of Consultation June 10, 2023 Assessment & Plan (1) Chest pain: -EKG performed 06/09/2023 and interpret independently: Sinus rhythm with left bundle branch block, QRS duration 128 ms. -Echocardiogram performed today reviewed on a preliminary basis revealing abnormal septal motion consistent with left bundle branch block, mild subtle hypokinesis noted otherwise LVEF in the range of 40 to 45%. -The circumflex territory wall motion is without focal abnormality. -High-sensitivity troponin measurements have been drawn on a serial basis with measurements of 13.1, mild elevation of 16.1 and 14.5, and then declined of 12.2 pg /ml. -Patient recalls that her presenting symptoms are somewhat reminiscent of her previous myocardial infarction but to a lesser degree. At this time, we will proceed with a Lexiscan nuclear stress test. This is the test of choice for her given underlying left bundle branch block. -Continue medication therapy with aspirin, amlodipine, furosemide, rosuvastatin, potassium chloride supplementation. History of Present Illness Attending Physician: Berto Schofield MD History of Present Illness Ms. Hagan is a 77 year old female seen in cardiology consultation per the request of Dr Howell for the evaluation of chest discomfort. Patient notes that yesterday at about 1 PM she had abrupt onset of feeling diffuse perspiration that she describes as a "cold sweat ". She laid down shortly thereafter and had chest discomfort. She took Rolaids and it did not help with the discomfort and subsequently she presented to the emergency de partment. She received aspirin 324 mg and notes that her symptoms resolved shortly thereafter. At present, she has not any chest discomfort recently and felt chest pain-free overnight last night. She notes that as of recently she has been having generalized fatigue. She has been having issues with neck and headache pain for which she had multiple emergency room visits and was treated with medications recently including amoxicillin, celecoxib, and valproic acid. She subsequently had a skin eruption that included generalized rash on her face, trunk, back, lower extremities, as well as a mucositis. She had been seen by dermatology and was felt that it was due to a drug eruption. She was ultimately referred to [facility] and has since completed a tapering course of prednisone with resolution of her rash. PAST MEDICAL HISTORY: Coronary heart disease, non-STEMI June, with cardiac catheterization at the time revealing 100% acute occlusion of the mid circumflex coronary artery after the takeoff of obtuse marginal 1 first she underwent PCI and drug-eluting stent. Otherwise was noted to have 30 to 40% mid LAD stenosis branch vessel disease of the diagnosis and luminal irregularities of the right circumflex coronary artery. Chronic left bundle branch block, initially noted as an incidental finding at the time of endoscopy, this predated her NSTEMI Mild left ventricular systolic dysfunction Diffuse B-cell lymphoma, in remission Allergies Allergy/AdvReac Type Severity Reaction Status Date / Time hornet venom Allergy Severe Anaphylaxis Verified 05/30/23 10:49 venom-wasp Allergy Severe Anaphylaxis Verified 05/30/23 10:49 celecoxib Allergy Intermediate Rash Verified 05/30/23 12:22 Sulfa (Sulfonamide Allergy Intermediate Hives Verified 05/30/23 10:49 Antibiotics) valproic acid Allergy Intermediate Rash Verified 05/30/23 12:22 adhesive Allergy Mild Rash Verified 05/30/23 10:49 amoxicillin Allergy Mild DRESS Verified 05/30/23 10:55 SYNDROM codeine Allergy Mild Rash Verified 05/30/23 10:49 diclofenac Allergy Unknown Unknown Verified 05/30/23 10:49 famotidine Allergy Unknown Unknown Verified 05/30/23 10:49 morphine Allergy Unknown Unknown Verified 05/30/23 10:49 nitroglycerin Allergy Unknown Unknown Verified 05/30/23 10:49 bendamustine [From Bendeka] AdvReac Severe PAIN Verified 05/30/23 10:49 rituximab AdvReac Severe PAIN Verified 05/30/23 10:49 ibuprofen AdvReac Intermediate "Skin Verified 05/30/23 10:49 crawling" Znugmmx-TNG-EvQ Reductase AdvReac Intermediate Muscle Verified 05/30/23 10:49 Inhibitor aches [Cfemtqn-Cav-Uxb Reductase Inhibitor] systemic steroid Allergy Intermediate Rash Uncoded 05/30/23 10:49 Home Medications Medication Instructions Recorded Confirmed Type meclizine 25 mg tablet (Motion 25 mg PO TID PRN Vertigo #30 tabs 03/30/19 06/09/23 History Sickness (meclizine)) amlodipine 2.5 mg tablet (Norvasc) 2.5 mg PO QAM 07/03/21 06/09/23 History epinephrine 0.3 mg/0.3 mL 0.3 mg (0.3 mL) subcut UD PRN 02/18/22 06/09/23 Rx injection, auto-injector (EpiPen) Anaphylaxis #2 ea rosuvastatin 10 mg tablet 10 mg PO DAILY 07/25/22 06/09/23 History aspirin 81 mg chewable tablet 81 mg PO DAILY 08/26/22 06/09/23 History multivitamin 1 tab PO DAILY 08/26/22 06/09/23 History dexlansoprazole 60 mg 60 mg PO QAM 10/07/22 06/09/23 History capsule,biphase delayed release lorazepam 0.5 mg tablet (Ativan) 0.5 mg PO BID PRN anxiety #45 tabs 10/14/22 06/09/23 Rx cyclobenzaprine 10 mg tablet 10 mg PO TID PRN muscle spasm #14 05/02/23 06/09/23 Rx tabs clonazepam 0.5 mg tablet (Klonopin) 0.5 mg PO HS PRN Sleep #30 tabs 05/30/23 06/09/23 Rx magnesium oxide 500 mg tablet 500 mg PO DAILY #30 tabs 05/30/23 06/09/23 Rx fentanyl 12 mcg/hr transdermal 12 mcg transdermal CQ72HR #10 ea 06/06/2306/09 Rx patch furosemide 20 mg tablet 20 mg PO DAILY 06/09/23 06/09/23 History hydrocodone 5 mg-acetaminophen 325 1 tab PO Q12H 06/09/23 06/09/23 History mg tablet potassium chloride 20 mEq 20 meq PO DAILY 06/09/23 06/09/23 History tablet,extended release(part/cryst) Patient History Medical History Bundle branch block, left Chronic dating back to at least 05/2017 stress test Cervicogenic headache Degenerative disc disease Hyperlipidemia Hypokalemia Myofascial pain Nerve pain Left sided Opioid dependence Osteoarthritis Osteoporosis Spinal stenosis of lumbar region Surgical History H/O heart artery stent 07/02/21 History of bilateral cataract extraction Bilateral History of bilateral tubal ligation History of carpal tunnel release Left History of colonoscopy with polypectomy History of esophagogastroduodenoscopy (EGD) History of surgery Deep excision of right cervical lymph nodes by Dr. Guajardo on 05/25/21 Family History Father , 57yo Colorectal cancer Mother , 76yo Myocardial infarction Colorectal cancer Hearing loss Grandmother (Paternal) Stroke Sister Stroke Factor V Leiden mutation Daughter Family history of reaction to anesthesia PONV Brother Myocardial infarction Sister Medical history unknown Son No problems noted. Son No problems noted. Son Ulcerative colitis Daughter No problems noted. Daughter No problems noted. Other Heart disease Denies family history of Ovarian cancer Prostate cancer Breast cancer Social History Smoking Status: Never smoker Tobacco Type: Cigarettes Cigarettes Per Day: 2 PPD x 10 yrs;Quit 1972; Second Hand Exposure: No; Do You Dip or Chew Tobacco: No; Tobacco Cessation Education Requested by Patient: No Hx Alcohol Use: No Hx Substance Use: No Preferred Language: Hungarian Communication Ability: Effective Visual Impairment: Limited Hearing Ability: Normal Jack Setter Required: No Beliefs That Will Affect Care: None marital status: / Current Living Situation: Spouse current occupational status: retired current occupation: Many occupations How many Children do You have: 5 Other Information That Helps Us Care for You: No Feels Safe at Home: Yes Childhood Exposure to Second-Hand Smoke: Yes Diet: regular caffeine: Yes (1 cup/day) during the past year weight has: remained stable Dental Care, Regularly: Yes Physical Activity Frequency: Daily Physical Activity Frequency Comment: Daily housework, laundry, and minimal walking Seatbelt Use: always Sunscreen Use: No Assistive Devices: Glasses Review of Systems Review of Systems: All systems reviewed & are unremarkable except as noted in HPI & below Physical Exam Constitutional: WD/WN, vitals as above Respiratory: normal respiratory effort, lungs clear to auscultation Cardiovascular: RRR, no murmur, no edema Gastrointestinal (Abdomen): normal bowel sounds, soft, nontender, no hepatosplenomegaly Neurologic: PERRL, EOMI, accommodation nl, no face palsy, no dysarthria Results & Data Vital Signs (Past 12 Hours) Vital Signs Pulse Pulse Resp BP Pulse Ox O2 Del Method 06/10/23 07:00 92 H 15 114/82 95 Room Air 06/10/23 06:06 91 H 18 121/87 93 Room Air 06/10/23 02:00 86 15 94/65 L 94 Room Air 06/09/23 23:57 86 15 121/81 94 Room Air 06/09/23 23:00 88 06/09/23 22:45 87 16 107/67 92 Room Air Laboratory Results Cardiac Enzymes 06/09/23 06/09/23 06/09/23 Range/Units 15:00 17:16 23:21 AST 17 (13-39) U/L Troponin I High Sens 13.1 16.1 H 14.5 H (0-14) pg/ml 06/10/23 Range/Units 04:33 AST (13-39) U/L Troponin I High Sens 12.2 (0-14) pg/ml Coagulation 06/09/23 06/10/23 Range/Units 15:00 04:33 PT 10.0 10.3 (9.0-12.0) Seconds CBC 06/09/23 06/10/23 Range/Units 15:00 04:33 WBC 5.54 4.00 L (4.8-10.8) K/ul RBC 4.43 4.02 L (4.20-5.40) M/uL Hgb 13.9 12.8 (12.0-16.0) g/dl Hct 41.7 37.8 (37.0-47.0) % Plt Count 237 235 (130-400) K/uL Neut # (Auto) 4.12 2.54 (1.40-6.50) K/uL Lymph # (Auto) 0.61 L 0.70 L (1.20-3.40) K/uL [place] # (Auto) 0.46 0.43 (0.11-0.59) K/uL Eos # (Auto) 0.27 0.26 (0.00-0.50) K/uL Baso # (Auto) 0.03 0.02 (0.00-0.20) K/uL Comprehensive Metabolic Panel 06/09/23 06/10/23 Range/Units 15:00 04:33 Sodium 139 140 (136-145) mmol/L Potassium 3.7 3.9 (3.5-5.1) mmol/L Chloride 104 106 (98-107) mmol/L Carbon Dioxide 26 27 (21-32) mmol/L BUN 12 12 (6-23) mg/dl Creatinine 1.11 1.00 (0.6-1.2) mg/dl Glucose 104 H 106 H (70-99(Fasting)) mg/dl Calcium 8.8 8.6 (8.6-10.3) mg/dl AST 17 (13-39) U/L ALT 21 (7-52) U/L Alkaline Phosphatase 49 (34-104) U/L Total Protein 6.7 (6.0-8.3) gm/dl Albumin 4.2 (3.4-5.0) gm/dl Intake and Output 06/09/23 06/10/23 06/10/23 22:59 06:59 14:59 Intake Total 0 / 360 360 / 360 Balance 0 / 360 360 / 360 Intake: Oral 0 / 360 360 / 360 Other: # Unmeasured Voids 2 Weight 89.4 kg 89.2 kg Weight Measurement Method Built in [facility] Built in [facility] Patient Weight 06/11/23 06:59 Weight 89.2 kg
--- NOTE | 2023-06-10 17:51 | Hospitalist Progress Note ---
Date of Service June 10, 2023 Assessment & Plan (1) Chest pain: Plan: EKG negative troponins negative TTEShowed no drop in EF. 40s to 45%. However mild hypokinesis noted. Since her symptoms are similar to her prior [place], cardiology recommends a stress test. N.p.o. postmidnight Lexiscan ordered for tomorrow (2) Spinal stenosis of lumbar region: Plan: -Will continue chronic pain regimen with fentanyl patch (in place, changed every Friday and Friday) -Continue prn hydrocodone-acetaminophen q12h (3) Opioid dependence: Plan: -See spinal stenosis (4) Diffuse large B cell lymphoma: Plan: -Follows with Dr. Espino -Has been monitoring, continue to FU with Dr. Espino (5) Benign positional vertigo: Plan: -PRN meclizine (6) HTN (hypertension), benign: Plan: -Stable -Continue amlodipine for HTN and esophageal spasms -Continue daily lasix (7) Hyperlipidemia: Plan: -Continue statin (8) H/O heart artery stent: Plan: -S/P PCI and ASH placement to the Circumflex artery in 2020 -Currently on Aspirin therapy, continue tomorrow with statin therapy Admission and Anticipated Discharge Date Admission Date: June 09, 2023 Subjective Patient feels well. Denies chest pain or shortness of breath at this time. Review of Systems Review of Systems: All systems reviewed & are unremarkable except as noted in Subjective Physical Exam Physical Exam: General: Awake, conversant Heart: S1, S2/regular rate and rhythm, no murmur rubs or gallops Lungs: Clear to auscultation bilaterally. Normal effort Abdomen: Soft/nontender/nondistended. No hepatosplenomegaly Extremities: No clubbing/cyanosis. No edema Behavior: Appropriate, cooperative Results & Data Results & Data Vital Signs (Past 12 Hours) Vital Signs Temp Pulse Pulse Resp BP Pulse Ox O2 Del Method 06/10/23 16:10 99 H 06/10/23 15:52 36.6 C 96 H 14 108/75 94 Room Air 06/10/23 11:30 98 H 16 142/92 H 93 Room Air 06/10/23 07:00 92 H 15 114/82 95 Room Air 06/10/23 06:06 91 H 18 121/87 93 Room Air Laboratory Results Abnormal lab results 06/09/23 06/09/23 06/10/23 Range/Units 17:16 23:21 04:33 WBC (4.8-10.8) K/ul RBC (4.20-5.40) M/uL RDW Std Deviation (36.4-46.3) fL RDW Coeff of Deon (11.5-14.5) % Lymph # (Auto) (1.20-3.40) K/uL Glucose 106 H (70-99(Fasting)) mg/dl Troponin I High Sens 16.1 H 14.5 H (0-14) pg/ml 06/10/23 Range/Units 04:33 WBC 4.00 L (4.8-10.8) K/ul RBC 4.02 L (4.20-5.40) M/uL RDW Std Deviation 65.3 H (36.4-46.3) fL RDW Coeff of Deon 18.8 H (11.5-14.5) % Lymph # (Auto) 0.70 L (1.20-3.40) K/uL Glucose (70-99(Fasting)) mg/dl Troponin I High Sens (0-14) pg/ml PG Care Time/CCT Total # of Minutes Spent Total Time Spent with Patient: Total time spent is greater than 50% in coordination of care (as documented) at patient's floor/unit and/or counseling patient: Coding Level of Care Code 37780 SUB INP/OBS CARE 2/35MIN Diagnoses Chest pain R07.9 Spinal stenosis of lumbar region M48.061 Opioid dependence F11.20 Diffuse large B cell lymphoma C83.30 Benign positional vertigo H81.10 HTN (hypertension), benign I10 Hyperlipidemia E78.5 H/O heart artery stent Z95.5
--- NOTE | 2023-06-10 18:46 | Electrocardiogram Report ---
Test Reason : Blood Pressure : / mmHG Vent. Rate : 097 BPM Atrial Rate : 097 BPM P-R Int : 132 ms QRS Dur : 128 ms QT Int : 384 ms P-R-T Axes : 037 -42 115 degrees QTc Int : 487 ms Normal sinus rhythm Left axis deviation Left bundle branch block Abnormal ECG When compared with ECG of 17-MAY-2023 23:10, Left bundle branch block is now Present Criteria for Anterior infarct are no longer Present Criteria for Anterolateral infarct are no longer Present Criteria for Inferior infarct are no longer Present Confirmed by James Small ([id number]) on 06/10/2023 6:45:50 PM Referred By: REFERRED SELF Confirmed By:Donell Small
[2023-06-10] MEDS: ENOXAPARIN INJ 40 MG/0.4 ML SYR SQ SCH (20:08)
[2023-06-11] MEDS: HYDROCODONE/ACETAMOPHEN 5/325MG TAB PO SCH (05:45)
[2023-06-11] MEDS: CHECK fentaNYL PATCH PLACEMENT SCH ×2 (08:28→16:34)
[2023-06-11] MEDS: FUROSEMIDE 20 MG TAB PO SCH (09:53)
[2023-06-11] MEDS: MAGNESIUM OXIDE 400 MG TAB PO SCH (09:53)
[2023-06-11] MEDS: PANTOprazole 40 MG TAB PO SCH (09:53)
[2023-06-11] MEDS: ASPIRIN 81 MG CHEW PO SCH (09:53)
[2023-06-11] MEDS: amLODIPine BESYLATE 5 MG TAB PO SCH (09:53)
[2023-06-11] MEDS: ROSUVASTATIN CALCIUM 10 MG TAB PO SCH (09:54)
[2023-06-11] MEDS: POTASSIUM CHLORIDE CRTAB 20 MEQ TABCR PO SCH (09:54)
--- NOTE | 2023-06-11 11:11 | Cardiology Progress Note ---
Date of Service June 11, 2023 Assessment & Plan (1) Chest pain: Plan: -Continue medication therapy with aspirin, amlodipine, furosemide, rosuvastatin, potassium chloride supplementation. -Plan for nuclear stress test tentatively scheduled for this afternoon. Patient may have a light snack this morning and water, no caffeine, n.p.o. for 3 hours prior to the 330 stress test portion of the study. Admission and Anticipated Discharge Date Admission Date: June 09, 2023 Subjective Patient seen in follow-up. Telemetry reveals sinus rhythm in the 80s to 90s. She notes vague chest discomfort overnight last night which she attributes to being positional when she tries to lay on her left side and does not sound characteristic of angina. Physical Exam Constitutional: WD/WN, vitals as above Respiratory: normal respiratory effort, lungs clear to auscultation Cardiovascular: RRR, no murmur, no edema Gastrointestinal (Abdomen): normal bowel sounds, soft, nontender, no hepatosplenomegaly Neurologic: PERRL, EOMI, accommodation nl, no face palsy, no dysarthria Results & Data Vital Signs (Past 12 Hours) Vital Signs Temp Pulse Pulse Resp BP Pulse Ox O2 Del Method 06/11/23 08:55 127/82 06/11/23 07:46 36.9 C 92 H 16 93/63 L 92 Room Air 06/11/23 05:48 85 103/71 94 Room Air 06/11/23 03:00 36.9 C 94 H 18 100/69 93 Room Air Laboratory Results Cardiac Enzymes 06/10/23 Range/Units 10:54 Troponin I High Sens 10.7 (0-14) pg/ml Intake and Output 06/10/23 06/11/23 06/11/23 22:59 06:59 14:59 Intake Total 200 / 200 Balance 200 / 200 Intake: Oral 200 / 200 Other: Other Intake Source NPO # Unmeasured Voids 1 Weight 88.1 kg
--- NOTE | 2023-06-11 16:27 | Discharge Summary ---
Date of Service June 11, 2023 Admission HPI Per Admitting Provider Gilson Posada) is a 77 year old female with a PMH significant for CAD S/P PCI and ASH placement in 2020 for Circumflex occlusion, LBBB, esophageal spasms (on Amlodipine), GERD, diffuse B-cell lymphoma follows with Dr. Espino and in remission, chronic back pain, opioid dependence, HTN, and BPPV who presented to the [facility] ED on 06/09 via EMS for acute onset of substernal chest pain. In the ED, vitals were stable. Labs including CBC, CMP, and initial high sen trop were WNL. Chest xray was read as "No significant change compared to the prior study. No acute process.". We were asked to admit the patient for chest pain rule out due to her age and hx of recent PCI and ASH placement. The patient was given 324 mg Aspirin by EMS in route to the ED. At the time of the exam the patient was sitting in bed in no acute distress with her Daughter sitting bedside. The patient states that she was feeling "unwell" earlier today with chills and sweating, because of this she laid down to take a nap. She was woken up from sleep at approximately 1300 this afternoon with substernal chest pressure/heaviness. She denies radiation of the pain and states that it lasted for approximately one hour. She took 2 Rolaids without change in her symptoms. When asked, she states that this chest discomfort feels very similar to her chest discomfort in 2020 when she required PCI and ASH placement. She confirms that she is currently chest pain free. She does not feel as though this chest discomfort feels as though it is related to her reflux. We discussed code status, the patient confirmed that she is a DNR/DNI and would want her daughter to make medical decisions for her if she could not make them herself. Please refer to Dr. Howell's attestation for any changes to the treatment plan Admission Exam Per Admitting Provider General:In no acute distress, stated age, well-nourished, good hygiene HEENT:Normocephalic, atraumatic, no scleral icterus, pupils around round, symmetrical, and reactive to light, moist mucus membranes, trachea midline, no thyromegaly Chest/Pulm:No reproducible pain on palpation of the chest, No respiratory distress, symmetrical chest expansion, clear breath sounds throughout Cardiac:RRR, no murmurs noted Abdomen:Negative for ascites and bruising, normoactive bowel sounds, soft, non-tender to palpation throughout Musculoskeletal:Symmetrical and without signs of acute trauma, upper and lower extremities with full ROM, no atrophy, spasticity, or flaccidity Extremities:Radial, dorsalis pedis, and posterior tibial pulses are intact and symmetrical, no edema noted in the BL LE's Skin:Warm, dry, no rashes , lesions, or scars noted Neuro:Alert and oriented to person, place, month, year, and president, no focal defects, no tremors noted Psych:No acute distress, calm and cooperative during the exam Principal Diagnosis atypical chest pain most likely related to acid reflux Discharge Exam General: Awake, conversant Heart: S1, S2/regular rate and rhythm, no murmur rubs or gallops Lungs: Clear to auscultation bilaterally. Normal effort Abdomen: Soft/nontender/nondistended. No hepatosplenomegaly Extremities: No clubbing/cyanosis. No edema Behavior: Appropriate, cooperative Discharge Data Allergies Allergy/AdvReac Type Severity Reaction Status Date / Time hornet venom Allergy Severe Anaphylaxis Verified 05/30/23 10:49 venom-wasp Allergy Severe Anaphylaxis Verified 05/30/23 10:49 celecoxib Allergy Intermediate Rash Verified 05/30/23 12:22 Sulfa (Sulfonamide Allergy Intermediate Hives Verified 05/30/23 10:49 Antibiotics) valproic acid Allergy Intermediate Rash Verified 05/30/23 12:22 adhesive Allergy Mild Rash Verified 05/30/23 10:49 amoxicillin Allergy Mild DRESS Verified 05/30/23 10:55 SYNDROM codeine Allergy Mild Rash Verified 05/30/23 10:49 diclofenac Allergy Unknown Unknown Verified 05/30/23 10:49 famotidine Allergy Unknown Unknown Verified 05/30/23 10:49 morphine Allergy Unknown Unknown Verified 05/30/23 10:49 nitroglycerin Allergy Unknown Unknown Verified 05/30/23 10:49 bendamustine [From Bendeka] AdvReac Severe PAIN Verified 05/30/23 10:49 rituximab AdvReac Severe PAIN Verified 05/30/23 10:49 ibuprofen AdvReac Intermediate "Skin Verified 05/30/23 10:49 crawling" Fyquscr-PRK-RxS Reductase AdvReac Intermediate Muscle Verified 05/30/23 10:49 Inhibitor aches [Eindskf-Otm-Frj Reductase Inhibitor] systemic steroid Allergy Intermediate Rash Uncoded 05/30/23 10:49 Consultations 06/09/23 16:29 ED Decision to Admit Stat 06/09/23 17:21 Consult Cardiology Routine Hospital Course (1) Chest pain: EKG negative troponins negative TTE showed no drop in EF. 40s to 45%. However mild hypokinesis noted. Since her symptoms are similar to her prior [place], cardiology recommends a stress test. Stress test negative Chest pain is most likely related to GERD (2) Spinal stenosis of lumbar region: -Will continue chronic pain regimen with fentanyl patch (in place, changed every Friday and Friday) -Continue prn hydrocodone-acetaminophen q12h (3) Opioid dependence: -See spinal stenosis (4) Diffuse large B cell lymphoma: -Follows with Dr. Espino -Has been monitoring, continue to FU with Dr. Espino (5) Benign positional vertigo: -PRN meclizine (6) HTN (hypertension), benign: -Stable -Continue amlodipine for HTN and esophageal spasms -Continue daily lasix (7) Hyperlipidemia: -Continue statin (8) H/O heart artery stent: -S/P PCI and ASH placement to the Circumflex artery in 2020 -Currently on Aspirin therapy, continue with statin therapy Plan discharge today Total Time Total Time Spent Total Time Spent (In Minutes): 35 Discharge Plan Discharge Items Patient Disposition: Home - Self-Care Reason For Visit: CHEST PAIN Discharge Diagnosis: atypical chest pain likely secondary to acid reflux Activity: Resume your previous activity Non-emergency contact: Primary Care Provider Call non-emergency contact if: you have any medication questions and your symptoms worsen Follow-up/Referrals: Mitra Santizo MD [Primary Care Provider] - Diet: Heart Healthy Addtl Attending Provider Instructions: advised to follow-up with PCP in 1 week Pending Studies at Discharge: No Stand-Alone Forms: My [facility] Conjunct Medications and DC Order Prescriptions: Continued aspirin 81 mg tablet,chewable 81 mg PO DAILY multivitamin Tablet 1 tab PO DAILY fentanyl 12 mcg/hr patch 72 hour 12 mcg transdermal CQ72HR Qty: 10 0RF meclizine [Motion Sickness (meclizine)] 25 mg tablet 25 mg PO TID PRN (Reason: Vertigo) Qty: 30 clonazepam [Klonopin] 0.5 mg tablet 0.5 mg PO HS PRN (Reason: Sleep) Qty: 30 0RF Rx Instructions: PDMP searched, okay to fill. magnesium oxide 500 mg tablet 500 mg PO DAILY Qty: 30 0RF epinephrine [EpiPen] 0.3 mg/0.3 mL auto-injector 0.3 mg subcut UD PRN (Reason: Anaphylaxis) Qty: 2 2RF lorazepam [Ativan] 0.5 mg tablet 0.5 mg PO BID PRN (Reason: anxiety) Qty: 45 2RF cyclobenzaprine 10 mg tablet 10 mg PO TID PRN (Reason: muscle spasm) Qty: 14 0RF amlodipine [Norvasc] 2.5 mg tablet 2.5 mg PO QAM potassium chloride 20 mEq tablet,ER particles/crystals 20 meq PO DAILY hydrocodone-acetaminophen 5-325 mg tablet 1 tab PO Q12H furosemide 20 mg tablet 20 mg PO DAILY rosuvastatin 10 mg tablet 10 mg PO DAILY dexlansoprazole 60 mg capsule,biphase delayed releas 60 mg PO QAM Discharge Orders: Discharge Order (Routine); Ordered 06/11/23 Ordered By: Berto Schofield Admission Data Admit Date/Time: 06/09/23 16:41 Attending Provider: Berto Schofield Admit Provider: Hugo Howell Primary Care Provider: Mitra Santizo Other Providers: Hugo Howell ; Raymundo Hankins Coding Level of Care Code 46429 INP/OBS DISCH >30 MIN Diagnoses Chest pain R07.9 Spinal stenosis of lumbar region M48.061 Opioid dependence F11.20 Diffuse large B cell lymphoma C83.30 Benign positional vertigo H81.10 HTN (hypertension), benign I10 Hyperlipidemia E78.5 H/O heart artery stent Z95.5
--- NOTE | 2023-06-11 16:36 | Myocardial Perfusion Study ---
Date of Service June 11, 2023 Myocardial Perfusion Study [facility] Myocardial Perfusion Study Report Procedure: 1. Myocardial perfusion study performed in multiple views/images 2. Lexiscan pharmacologic stress ECG Indications: 1. Chest discomfort, history of circumflex coronary stent, left bundle branch block Ordering physician: Flaco Gifford DO Procedural details: For the stress portion of the study, Lexiscan 0.4 mg was intravenously administered followed by a saline flush. This was followed by 30.2mCi of technetium 99m Cardiolite, injected at 15:22 on 06/11/23. 30 minutes following the injection, imaging of the heart was performed in multiple projections. For the rest portion of the study, 10.1 mCi technetium 99m Cardiolite was injected intravenously at 13:28 on 06/11/23. 1 hour following the injection, imaging of the heart was performed in the same projections. Lexiscan stress ECG: Resting ECG demonstrated: Sinus rhythm with left bundle branch block Maximum heart rate: 115 bpm Maximal, age-predicted heart rate: 99% Resting blood pressure: 138/93 mmHg Maximum blood pressure:150/104 mmHg The stress ECG response is nondiagnostic for excluding ischemia due to the presence of underlying left bundle branch block Findings: Rotating raw imaging demonstrated no significant lung uptake. There is no significant motion artifact. Heart size appeared normal. There is extracardiac uptake of the radiopharmaceutical in the liver and bowels with resultant inferior attenuation artifact. Stress images reveal a large sized fixed septal, inferior, and lateral perfusion defect that spares the anterior wall. Ejection fraction: 39% Wall motion:Abnormal septal wall motion consistent with left bundle branch block. No significant transient ischemic dilation. Impression: 1. The study is technically limited due to attenuation artifact. 2. The myocardial perfusion imaging study reveals no definite evidence of inducible ischemia. There is a large sized fixed septal, inferior, and lateral perfusion defect of moderate intensity. Based on the appearance of the raw data and the gated wall motion, the inferior and inferolateral perfusion defect appears to be related to an attenuation artifact. Abnormal septal perfusion and wall motion is consistent with the patient's history of left bundle branch block. 3. The LV ejection fraction is moderately reduced, 39%.
--- NOTE | 2023-06-11 17:16 | Communication Note ---
Date of Service: June 11, 2023 Reviewed the patient's stress test results with her. Test reveals a large sized fixed septal, inferior, lateral perfusion defect likely due to attenuation artifact. No ischemia. Study however is technically limited. LVEF by gated SPECT technique is 39%. The patient has not had any additional symptoms suggestive of angina. I question if her generalized fatigue is related to decline in her ejection fraction over the last 2 years. I recommend discontinuation of her amlodipine as her blood pressure is borderline low. She recently had a severe allergic reaction requiring a prednisone taper, I do think it is prudent to not add an BENJIE inhibitor, ARB, or Entresto for now due to relative blood pressure and concerns of drug reactions. This will be revisited as an outpatient. Patient stable for discharge after she has her evening meal. I called the kitchen to facilitate having her tray delivered as she has been n.p.o. all day for test. I will request outpatient cardiology follow-up visit.
== END 2023-06-11 18:12 | disposition home or self-care (01) ==
LOC: ED 14:50 → EDINP 14:50 → SUATTDRO 16:41 → 2N 17:14

== ENCOUNTER 2025-04-24 14:45 | Observation (INO) ==
--- NOTE | 2025-04-24 15:09 | Emergency Department Note ---
Impression & Plan Chest pain, Complete left bundle branch block ED Provider Note NAME: TERRANCE VERONICA AGE: 79 SEX: F : 1945 ARRIVES VIA: Walk-In INFORMANT: Patient, ED PROVIDER(S): Gabe Choe DO CHIEF COMPLAINT: Chest pain HPI: The patient is an 79-year-old female who presented to the emergency department for an evaluation of chest pain. The patient describes anterior chest pain that began while she was watching TV. She did take 4 baby aspirin. The patient has a history of coronary artery disease. She presented to the emergency department because a similar symptoms occurred when she required stenting. Patient denies having any back pain. She denies having any trouble breathing. She states the pain is improved at this time. ROS: See above HPI for pertinent positives & negatives. A total of 10 systems reviewed and were otherwise negative. PAST MEDICAL HISTORY: See Below PAST SURGICAL HISTORY: See Below FAMILY HISTORY: See Below SOCIAL HISTORY: See Below HOME MEDICATIONS: See Below ALLERGIES: See Below VITALS: See Below PHYSICAL EXAMINATION: GENERAL: The patient is awake and alert. The patient is somewhat anxious.. EYES: The conjunctivae are clear. The pupils are round and reactive. EARS, NOSE, MOUTH AND THROAT: The nose is without any evidence of any deformity. NECK: The neck is nontender and supple. RESPIRATORY: Normal respiratory effort is noted there is no evidence of wheezing rhonchi or rales CARDIOVASCULAR: Regular rate and rhythm noted there no murmurs rubs or gallops normal S1 normal S2. GASTROINTESTINAL: The abdomen is soft. Abdomen is nontender. MUSCULOSKELETAL/EXTREMITIES: There is no evidence of gross deformity full range of motion is noted in the hips and shoulders. SKIN: There is no obvious evidence of any rash. There are no petechiae, pallor or cyanosis noted. NEUROLOGIC: Patient is awake alert and oriented x3 MEDICAL DECISION MAKING: The patient is an 79-year-old female who presented to the emergency department for an evaluation of chest pain. The patient has a history of coronary artery disease with stenting in 2020. The patient states that she started having chest pain prior to arrival. This was not exertional. EKG shows no change from previous but does show a left bundle branch block. Troponins were negative x 2. The patient states that her pain was similar to when she has had cardiac issues in the past. I was concerned that this could make her more high risk. For this reason I discussed her condition with the on-call [facility] hospitalist group. They have agreed to evaluate the patient in the emergency department for further management and disposition. The patient did take aspirin prior to coming to the emergency department. Triage Nursing notes reviewed. Prior medical records reviewed Vital Signs: reviewed and remarkable for no significant abnormalities Differential diagnosis: Cardiac ischemia, aortic dissection, pulmonary embolism, pneumothorax, pneumonia, pericarditis, myocarditis, esophageal rupture, GERD, cholecystitis, pancreatitis, musculoskeletal, as well as other pathologies. ER treatment provided: See below Diagnostics interpreted by me: ECG: EKG was obtained in the emergency department. My interpretation is normal sinus rhythm at 92 bpm. There were no PVCs noted. Left bundle branch block pattern was noted with LVH suggested. This was compared to a tracing from January 17, 2025. No changes were noted. Cardiac Monitoring: An order was placed for continuous cardiac monitoring. The monitor shows a rate of 88 bpm with sinus rhythm. Laboratory studies: As stated above and show below. Imaging studies: See below. Radiographic imaging was reviewed by myself Consultation(s): I discussed this case with AUDIE who is on for the [facility] hospitalist group. Past Med/Surg History Problem List (Updated 04/24/25 @ 18:14 by Gabe Choe DO) Complete left bundle branch block (Acute) Chest pain (Acute) Adverse drug reaction (Acute) Weakness (Acute) H/O lymph node biopsy (10/19/24) Right Cervical Lymph Node Excisional Biopsy(Right) - Joe Cat DO Neuropathic pain COVID-19 (Acute) COVID-19 virus infection Fatigue Neck mass DRUJ (distal radioulnar joint) arthrosis, primary Abnormal chest CT Ex-smoker Exertional shortness of breath Multiple pulmonary nodules Ciprofloxacin adverse reaction Osteoarthritis of right shoulder Hematuria Vaginal odor Routine gynecological examination Chest pain (Acute) Rash Spinal stenosis of lumbar region Opioid dependence Cervicogenic headache Myofascial pain Insomnia Headache (Acute) Calf pain S/P PICC central line placement Right arm pain Anxiety Diffuse large B cell lymphoma H/O heart artery stent 07/02/21 Jaw pain Constipation Right shoulder pain Peripheral neuropathy Acute UTI Incomplete emptying of bladder Decreased urination Routine health maintenance NSTEMI (non-ST elevated myocardial infarction) 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 B-cell lymphoma (Acute) Mass of right side of neck Localized swelling, mass or lump of neck HTN (hypertension), benign Toe pain, chronic (Chronic) Encounter for examination following treatment at hospital (Acute) Heart disease Glossitis (Acute) caused by cinnamon Esophageal dysphagia Weight loss (Acute) Sleep disturbance (Chronic) Chronic pain (Chronic) Left wrist tendonitis Left knee DJD Left wrist pain Fall (Acute) Back pain (Chronic) Encounter for pre-operative examination GERD (gastroesophageal reflux disease) (Chronic) Bundle branch block, left Chronic dating back to at least 05/2017 stress test Hyperlipidemia (Chronic) Retrosternal chest pain (Acute) Headache (Acute) Benign positional vertigo (Acute) Medical History History of COVID-19 09/21/24--fatigue, sore throat, headache/neck pain, sweats--still having residual neck pain Neck mass Spinal stenosis of lumbar region Peripheral neuropathy Hx of non-ST elevation myocardial infarction (NSTEMI) (06/2021) Multiple pulmonary nodules f/u Dr Sharma Hyperlipidemia HTN (hypertension) Heart disease Hx of glossitis caused by cinnamon GERD (gastroesophageal reflux disease) Exertional shortness of breath states "very mild" Esophageal dysphagia denies Chronic pain Hx of chest pain chronic, intermittent; last episode 04/02/24, seen in [place], stress test 06/2024 "no findings" Left bundle branch block (LBBB) chronic dating back to 2013 per pt - follows w/ Dr Whitten History of cervical fracture C2 >>~2001- full ROM Benign positional vertigo intermittent, no issues recently History of B-cell lymphoma (2020) Anxiety Hypokalemia hx Nerve pain Left sided Osteoporosis Degenerative disc disease Osteoarthritis Surgical History History of dilatation and curettage S/P PICC central line placement h/o- removal H/O heart artery stent following n-stemi- 07/02/21; f/u dr. whitten, [facility] History of surgery Deep excision of right cervical lymph nodes by Dr. Guajardo on 05/25/21 History of bilateral cataract extraction History of colonoscopy with polypectomy History of bilateral tubal ligation History of carpal tunnel release Left History of esophagogastroduodenoscopy (EGD) Family History Father , 57yo Colorectal cancer Mother , 76yo Myocardial infarction Colorectal cancer Hearing loss Grandmother (Paternal) Stroke Sister Stroke Factor V Leiden mutation Daughter Family history of reaction to anesthesia PONV Brother Myocardial infarction Sister Medical history unknown Son No problems noted. Son No problems noted. Son Ulcerative colitis Daughter No problems noted. Daughter No problems noted. Other Heart disease Denies family history of Ovarian cancer Prostate cancer Breast cancer Social History Smoking Status: Never smoker Tobacco Type: Cigarettes Age Started Using Tobacco: 16; Age Quit Using Tobacco: 20; packs per day: 2; Cigarettes Per Day: 2 PPD x 10 yrs;Quit 1972; Second Hand Exposure: Yes (hx); Do You Dip or Chew Tobacco: No; Hx Alcohol Use: No Hx Substance Use: No Preferred Language: Polish Communication Ability: Effective Visual Impairment: Limited Hearing Ability: Normal [employer] Underwriter Required: No Beliefs That Will Affect Care: None marital status: / Current Living Situation: Alone Current Living Situation Comment: lives in [facility] current occupational status: retired current occupation: Many occupations How many Children do You have: 5 Feels Safe at Home: Yes Childhood Exposure to Second-Hand Smoke: Yes Diet: regular caffeine: Yes (1 cup/day) during the past year weight has: remained stable Dental Care, Regularly: Yes Physical Activity Frequency: Daily Physical Activity Frequency Comment: Daily housework, laundry, and minimal walking Seatbelt Use: always Sunscreen Use: No Do you think of yourself as: straight/heterosexual Sexual Activity: has been sexually active, but not for at least 12 months Gender Identity: Female Assistive Devices: None Allergies Allergies Allergy/AdvReac Type Severity Reaction Status Date / Time hornet venom Allergy Severe Anaphylaxis Verified 03/07/25 11:10 Sulfa (Sulfonamide Allergy Severe Hives Verified 03/07/25 11:10 Antibiotics) venom-wasp Allergy Severe Anaphylaxis Verified 03/07/25 11:10 celecoxib Allergy Intermediate Rash Verified 03/07/25 11:10 cinnamon Allergy Intermediate glossitis Verified 03/07/25 11:10 valproic acid Allergy Intermediate Rash Verified 03/07/25 11:10 adhesive Allergy Mild Rash Verified 03/07/25 11:10 amoxicillin Allergy Mild DRESS Verified 03/07/25 11:10 SYNDROM ciprofloxacin Allergy Mild pain in Verified 03/07/25 11:10 legs and heels codeine Allergy Mild Rash Verified 03/07/25 11:10 diclofenac Allergy Unknown Unknown Verified 03/07/25 11:10 morphine Allergy Unknown Unknown Verified 03/07/25 11:10 nitroglycerin Allergy Unknown Unknown Verified 03/07/25 11:10 prednisone Allergy Unknown Hives Verified 03/07/25 11:10 bendamustine [From [facility]] AdvReac Severe PAIN Verified 03/07/25 11:10 rituximab AdvReac Severe PAIN Verified 03/16/25 13:51 ibuprofen AdvReac Intermediate "Skin Verified 03/07/25 11:10 crawling" [id number]-[id number]-UbL Reductase AdvReac Intermediate Muscle Verified 03/07/25 11:10 Inhibitor aches [Jgebgbi-Grg-Aui Reductase Inhibitor] systemic steroid Allergy Intermediate Rash Uncoded 03/07/25 11:10 Home Meds Home Medications Medication Instructions Recorded Confirmed aspirin 81 mg chewable tablet 81 mg PO QAM 08/26/22 04/24/25 furosemide 20 mg tablet 20 mg PO QAM 06/09/23 04/24/25 potassium chloride 20 mEq 20 meq PO QAM 06/09/23 04/24/25 tablet,extended release(part/cryst) dexlansoprazole 60 mg 60 mg PO QAM 09/20/24 04/24/25 capsule,biphase delayed release magnesium oxide 500 mg PO QAM 09/20/24 04/24/25 rosuvastatin 10 mg tablet 10 mg PO QAM 04/24/25 04/24/25 Previous Rx's Medication Instructions Recorded epinephrine 0.3 mg/0.3 mL 0.3 mg (0.3 mL) subcut UD PRN 02/18/22 injection, auto-injector (EpiPen) Anaphylaxis #2 ea cyclobenzaprine 10 mg tablet 10 mg PO TID PRN muscle spasm #14 05/02/23 tabs meclizine 25 mg tablet (Motion 25 mg PO TID PRN Vertigo #30 tabs 10/12/24 Sickness (meclizine)) clonazepam 0.5 mg tablet (Klonopin) 0.5 mg PO HS PRN Sleep #30 tabs 02/24/25 Wheeled Walker #1 ea 02/18/25 fentanyl 12 mcg/hr transdermal 12 mcg transdermal CQ72HR #10 ea 03/15/25 patch sacubitril 24 mg-valsartan 26 mg 1 tab PO BID #180 tabs 03/16/25 tablet (Entresto) oxycodone-acetaminophen 5 mg-325 5 - 325 tab PO 3XD PRN Pain #90 04/06/25 mg tablet tabs lorazepam 0.5 mg tablet (Ativan) 0.5 mg PO BID PRN anxiety #45 tabs 04/18/25 Results & Data (ED) Vital Signs Vital Signs - 24 hr 04/24/25 14:47 04/24/25 15:00 04/24/25 15:03 Temperature 36.2 C L Temperature Source Temporal Artery Scan Pulse Rate 102 H 88 Pulse Rhythm Respiratory Rate 16 21 Respiratory Effort / Characteristics Non-Labored Respiratory Depth Normal Respiratory Pattern Regular Blood Pressure 158/100 H 148/96 H Blood Pressure Mean 119 127 Pulse Oximetry 96 94 95 Oxygen Delivery Method Room Air Room Air Oxygen Flow Rate 0 Sepsis Recent Fever Within 48 Hours No Sepsis New/Unexplained Change in Mental Status N/A Sepsis Action Taken by Nursing No Action Required 04/24/25 15:03 04/24/25 15:06 04/24/25 16:00 Temperature Temperature Source Pulse Rate 84 82 67 Pulse Rhythm Regular Respiratory Rate 16 14 Respiratory Effort / Characteristics Respiratory Depth Respiratory Pattern Blood Pressure 148/96 H Blood Pressure Mean 113 Pulse Oximetry 95 94 Oxygen Delivery Method Room Air Room Air Oxygen Flow Rate Sepsis Recent Fever Within 48 Hours Sepsis New/Unexplained Change in Mental Status Sepsis Action Taken by Nursing 04/24/25 16:00 04/24/25 16:00 04/24/25 16:31 Temperature Temperature Source Pulse Rate 67 65 77 Pulse Rhythm Respiratory Rate 19 17 19 Respiratory Effort / Characteristics Respiratory Depth Respiratory Pattern Blood Pressure 104/70 104/70 105/72 Blood Pressure Mean 77 77 89 Pulse Oximetry 92 93 96 Oxygen Delivery Method Oxygen Flow Rate Sepsis Recent Fever Within 48 Hours Sepsis New/Unexplained Change in Mental Status Sepsis Action Taken by [facility]dc Medications Current Medication List: was personally reviewed by me Laboratory Data Attestation: I reviewed the patient's lab results. 04/24/25 15:03 04/24/25 15:03 Lab Results 04/24/25 04/24/25 Range/Units 15:03 16:58 WBC 6.54 (4.8-10.8) K/ul RBC 4.34 (4.20-5.40) M/uL Hgb 13.9 (12.0-16.0) g/dl Hct 41.8 (37.0-47.0) % MCV 96.3 (80.0-100.0) fL MCH 32.0 (25.0-34.0) pg MCHC 33.3 (32.0-36.0) g/dL RDW Std Deviation 46.3 (36.4-46.3) fL RDW Coeff of Deon 13.0 (11.5-14.5) % Plt Count 319 (130-400) K/uL MPV 9.5 (9.4-12.4) fL Immature Gran % (Auto) 0.3 % Neut % (Auto) 66.5 % Lymph % (Auto) 23.4 % [place] % (Auto) 8.0 % Eos % (Auto) 1.5 % Baso % (Auto) 0.3 % Neut # (Auto) 4.35 (1.40-6.50) K/uL Lymph # (Auto) 1.53 (1.20-3.40) K/uL [place] # (Auto) 0.52 (0.11-0.59) K/uL Eos # (Auto) 0.10 (0.00-0.50) K/uL Baso # (Auto) 0.02 (0.00-0.20) K/uL Immature Gran # (Auto) 0.02 (0.01-0.20) K/uL PT 9.8 (9.0-12.0) Seconds INR 0.9 (0.9-1.1) APTT 24 (21-31) Seconds PTT Ratio 0.9 Sodium 144 (136-145) mmol/L Potassium 3.5 (3.5-5.1) mmol/L Chloride 107 (98-107) mmol/L Carbon Dioxide 26 (21-32) mmol/L Anion Gap 11 (3-11) BUN 16 (6-23) mg/dl Creatinine 1.10 (0.6-1.2) mg/dl Est Cr Clr Drug Dosing 45.3 ml/min eGFR 50.80 BUN/Creatinine Ratio 14.5 (10-20) Glucose 121 H (70-99(Fasting)) mg/dl Calcium 9.0 (8.6-10.3) mg/dl Total Bilirubin 0.4 (0.2-1.0) mg/dl AST 13 (13-39) U/L ALT 12 (7-52) U/L Alkaline Phosphatase 48 (34-104) U/L Troponin I High Sens 4.5 3.7 (0-14) pg/ml Total Protein 7.2 (6.0-8.3) gm/dl Albumin 4.1 (3.4-5.0) gm/dl Globulin 3.1 (2.5-4.0) gm/dl Albumin/Globulin Ratio 1.3 (0.9-2) Lipase 16 (11-82) U/L Imaging Data Attestation: I personally reviewed and interpreted this imaging study as follows: My Impression: 1 view chest x-ray was obtained in the emergency department. My interpretation is no free air or definite infiltrate, final report below. Radiologist's Impression: Chest X-Ray 04/24/25 14:56 Exam: Chest one view portable. Reason for exam: Chest pain Previous study: 01/17/2025. FINDINGS: Cardiac size remains normal. Mild linear fibrosis in the lingula. Lungs otherwise clear of active infiltrate, collapse or edema. IMPRESSION: Stable appearance without acute disease seen at this time. Electronically signed by Ghulam Antonio 04-24-2025 3:35 PM Discharge Plan Visit Data Chief Complaint: Chest Pain Stated Complaint: CHEST PAIN,NECK ED Provider: Gabe Choe Discharge Problem: Chest pain, Complete left bundle branch block Patient Disposition: Being Evaluated by Hospitalist Condition: Good Forms Stand Alone Forms: My [facility] [email or web address] Prescriptions Prescriptions: No Action aspirin 81 mg tablet,chewable 81 mg PO QAM clonazepam [Klonopin] 0.5 mg tablet 0.5 mg PO HS PRN (Reason: Sleep) Qty: 30 0RF (DME) Wheeled Walker Misc See Rx Instructions .Route Qty: 1 0RF Rx Instructions: WHEELED WALKER WITH SEAT fentanyl 12 mcg/hr patch 72 hour 12 mcg transdermal CQ72HR Qty: 10 0RF Entresto 24-26 mg tablet 1 tab PO BID Qty: 180 1RF oxycodone-acetaminophen 5-325 mg tablet 5 - 325 tab PO 3XD PRN (Reason: Pain) Qty: 90 0RF lorazepam [Ativan] 0.5 mg tablet 0.5 mg PO BID PRN (Reason: anxiety) Qty: 45 2RF epinephrine [EpiPen] 0.3 mg/0.3 mL auto-injector 0.3 mg subcut UD PRN (Reason: Anaphylaxis) Qty: 2 2RF cyclobenzaprine 10 mg tablet 10 mg PO TID PRN (Reason: muscle spasm) Qty: 14 0RF meclizine [Motion Sickness (meclizine)] 25 mg tablet 25 mg PO TID PRN (Reason: Vertigo) Qty: 30 0RF potassium chloride 20 mEq tablet,ER particles/crystals 20 meq PO QAM furosemide 20 mg tablet 20 mg PO QAM magnesium oxide 500 mg tablet 500 mg PO QAM dexlansoprazole 60 mg capsule,biphase delayed releas 60 mg PO QAM Rx Instructions: TAKE 1 CAPSULE BY MOUTH EVERY DAY IN THE MORNING rosuvastatin 10 mg tablet 10 mg PO QAM Referrals Referrals: Mitra Santizo MD [Primary Care Provider] -
[2025-04-24 15:17] LABS: Hematocrit (blood only) 41.8 % (37.0-47.0); Hemoglobin 13.9 g/dl (12.0-16.0); Immature Granulocytes # (auto) 0.02 K/uL (0.01-0.20); Immature Granulocytes % (auto) 0.3 %; Mean Corpuscular Hemoglobin 32.0 pg (25.0-34.0); Mean Corpuscular Volume 96.3 fL (80.0-100.0); Platelet Count 319 K/uL (130-400); RDW Standard Deviation 46.3 fL (36.4-46.3); Red Blood Count 4.34 M/uL (4.20-5.40); White Blood Count 6.54 K/ul (4.8-10.8)
--- NOTE | 2025-04-24 15:36 | XRay Report ---
Exam: Chest one view portable. Reason for exam: Chest pain Previous study: 01/17/2025. FINDINGS: Cardiac size remains normal. Mild linear fibrosis in the lingula. Lungs otherwise clear of active infiltrate, collapse or edema. IMPRESSION: Stable appearance without acute disease seen at this time. Electronically signed by Ghulam Antonio 04-24-2025 3:35 PM
[2025-04-24 15:38] LABS: Alanine Aminotransferase 12.0 U/L (7-52); Albumin Globulin Ratio 1.3 (0.9-2); Alkaline Phosphatase 48.0 U/L (34-104); Anion Gap 11.0 (3-11); Bilirubin,Total 0.4 mg/dl (0.2-1.0); Blood Urea Nitrogen 16.0 mg/dl (6-23); Calcium 9.0 mg/dl (8.6-10.3); Carbon Dioxide 26.0 mmol/L (21-32); Chloride 107.0 mmol/L (98-107); Creatinine Clr Calc Pharmacy 45.3 ml/min; Globulin 3.1 gm/dl (2.5-4.0); Glucose 121.0 mg/dl (70-99(Fasting)); Lipase 16.0 U/L (11-82); Potassium 3.5 mmol/L (3.5-5.1); Sodium 144.0 mmol/L (136-145); Total Protein 7.2 gm/dl (6.0-8.3)
[2025-04-24 15:41] LABS: INR 0.9 (0.9-1.1); Partial Thromboplastin Time 24 Seconds (21-31); Prothrombin Time 9.8 Seconds (9.0-12.0)
--- NOTE | 2025-04-24 18:07 | History & Physical Report ---
Date of Service April 24, 2025 Assessment & Plan (1) Chest pain: (2) Diffuse large B cell lymphoma: (3) H/O heart artery stent: Plan This patient is a 79-year-old female with PMH of CAD s/p ASH, LBBB, and NSTEMI who presented on 04/24 for acute onset of chest pain at rest. Patient took aspirin 81 mg x 4 prior to arrival. #Chest pain | ?Unstable angina Troponin WNL x 2 EKG without acute ischemic changes; history of LBBB Heart score: 4 (based on age and risk factors) Touched base with [facility] Nuclear stress test ordered for the morning of 04/25 N.p.o. at midnight While patient reports she is "chest pain free" at time of admission, endorses "aching" under the left breast Trial of nitropast 0.5 inch x 1 Continuous telemetry monitoring #History of NSTEMI Presenting with classic angina on 06/13/2021 Catheterization found acute 100% occlusion of the mid circumflex coronary artery Patient underwent successful PCI s/p ASH #B-cell lymphoma | cancer-related pain Diagnosis in 2021; received chemotherapy at [facility] including doxorubicin Unfortunately, patient had recurrence of B-cell lymphoma in November 2024 Allergic to most chemotherapy medications; elected not to undergo treatment While patient denies SOB, she was mildly tachycardic on arrival around 102bpm Higher risk for PE given cancer / not on anticoagulation D-dimer ordered, pending Signed out to overnight team Continue fentanyl patches; replace every 3 days (verified in PDMP) Oxycodone 5 mg BID PRN for cancer-related pain (verified in PDMP) #HFpEF Last echocardiogram on 01/29/2024 revealed LVEF at 55 to 59% Strict I&O monitoring Daily weights Heart healthy, low-sodium diet Continue Lasix, Entresto, and K supplementation #GERD Continue PPI #Anxiety Lorazepam 0.5 mg p.o. BID PRN Hold clonazepam 0.5 mg HS PRN so as not to double up Also, last Rx in November 2024 #HLD Continue rosuvastatin Disposition: Obs - Admit to [facility] telemetry DVT PPx: Lovenox 40mg SQ q24h History of Present Illness Chief Complaint: Chest pain Primary Care Provider: Mitra Santizo MD Mrs. Hagan is an 79-year-old female with PMH of NSTEMI, CAD s/p ASH, LBBB, GERD, HTN, B-cell lymphoma, and neuropathic pain. She presented on 04/24 for acute onset of chest pain. Patient was sitting and watching TV around dinnertime, when she suddenly felt sharp, substernal chest pain. She rated the pain 8/10 at worst. She got up to use the bathroom, and her "ears and legs" started to hurt. The pain was constant, so she took 4 baby aspirin. The chest pain then subsided within approximately 30 minutes. Pain radiated up to her neck bilaterally. No radiation down the arms. Patient reports this felt like prior episodes of ACS. She does have a history of acid reflux, but reports this does not feel like prior episodes of reflux. Patient only had an egg sandwich this morning for breakfast around 11 AM; no other food before dinnertime. Patient reports she is chest pain free at time admission, but does endorse mild rib pain beneath the left breast. Patient took her regular morning medicine today. The only recent change in medications is that they increased her statin a couple weeks ago, and she went back to taking her regular dose last Friday as it was hurting her legs too much. No sick contacts to her knowledge. No PMH of stroke or T2DM. Patient does have a history of non-Hodgkin's lymphoma, and was told in November that she would have around 6 months to live. Patient elected to not undergo chemotherapy treatments, as she was "allergic" to most. She is not currently on any cancer treatments. No recent injuries to her chest wall or muscle strains. No rashes or bruising on the chest wall. No history of shingles. Patient denies smoking, tobacco use, or recent alcohol use. Patient's vitals are stable at time admission. ED course: ROS: Patient endorses LANDIN upon waking this morning, lightheadedness, chest pain (resolved), residual left sided chest wall soreness, Patient denies fever, chills, night-sweats, changes in vision, chest palpitations, pleuritic CP, SOB, cough, hemoptysis, abdominal pain, N/V/D, burning with urination, blood in the urine/stool, or numbness/tingling in the arms or legs. Allergies Allergy/AdvReac Type Severity Reaction Status Date / Time hornet venom Allergy Severe Anaphylaxis Verified 03/07/25 11:10 Sulfa (Sulfonamide Allergy Severe Hives Verified 03/07/25 11:10 Antibiotics) venom-wasp Allergy Severe Anaphylaxis Verified 03/07/25 11:10 celecoxib Allergy Intermediate Rash Verified 03/07/25 11:10 cinnamon Allergy Intermediate glossitis Verified 03/07/25 11:10 valproic acid Allergy Intermediate Rash Verified 03/07/25 11:10 adhesive Allergy Mild Rash Verified 03/07/25 11:10 amoxicillin Allergy Mild DRESS Verified 03/07/25 11:10 SYNDROM ciprofloxacin Allergy Mild pain in Verified 03/07/25 11:10 legs and heels codeine Allergy Mild Rash Verified 03/07/25 11:10 diclofenac Allergy Unknown Unknown Verified 03/07/25 11:10 morphine Allergy Unknown Unknown Verified 03/07/25 11:10 nitroglycerin Allergy Unknown Unknown Verified 03/07/25 11:10 prednisone Allergy Unknown Hives Verified 03/07/25 11:10 bendamustine [From Bendeka] AdvReac Severe PAIN Verified 03/07/25 11:10 rituximab AdvReac Severe PAIN Verified 03/16/25 13:51 ibuprofen AdvReac Intermediate "Skin Verified 03/07/25 11:10 crawling" Qvmyjfl-WXF-VfJ Reductase AdvReac Intermediate Muscle Verified 03/07/25 11:10 Inhibitor aches [Fottgbu-Ubk-Yqz Reductase Inhibitor] systemic steroid Allergy Intermediate Rash Uncoded 03/07/25 11:10 Home Medications Medication Instructions Recorded Confirmed Type epinephrine 0.3 mg/0.3 mL 0.3 mg (0.3 mL) subcut UD PRN 02/18/22 04/24/25 Rx injection, auto-injector (EpiPen) Anaphylaxis #2 ea aspirin 81 mg chewable tablet 81 mg PO QAM 08/26/22 04/24/25 History cyclobenzaprine 10 mg tablet 10 mg PO TID PRN muscle spasm #14 05/02/23 04/24/25 Rx tabs furosemide 20 mg tablet 20 mg PO QAM 06/09/23 04/24/25 History potassium chloride 20 mEq 20 meq PO QAM 06/09/23 04/24/25 History tablet,extended release(part/cryst) dexlansoprazole 60 mg 60 mg PO QAM 09/20/24 04/24/25 History capsule,biphase delayed release magnesium oxide 500 mg PO QAM 09/20/24 04/24/25 History meclizine 25 mg tablet (Motion 25 mg PO TID PRN Vertigo #30 tabs 10/12/24 04/24/25 Rx Sickness (meclizine)) clonazepam 0.5 mg tablet (Klonopin) 0.5 mg PO HS PRN Sleep #30 tabs 11/29/24 04/24/25 Rx Wheeled Walker #1 ea 02/18/25 04/24/25 Rx fentanyl 12 mcg/hr transdermal 12 mcg transdermal CQ72HR #10 ea 03/15/25 04/24/25 Rx patch sacubitril 24 mg-valsartan 26 mg 1 tab PO BID #180 tabs 03/16/25 04/24/25 Rx tablet (Entresto) oxycodone-acetaminophen 5 mg-325 5 - 325 tab PO 3XD PRN Pain #90 04/06/25 04/24/25 Rx mg tablet tabs lorazepam 0.5 mg tablet (Ativan) 0.5 mg PO BID PRN anxiety #45 tabs 04/18/25 04/24/25 Rx rosuvastatin 10 mg tablet 10 mg PO QAM 04/24/25 04/24/25 History Past Med/Surg History Problem List (Updated 04/24/25 @ 18:53 by Vincenzo Sierra PA-C) Unstable angina Complete left bundle branch block (Acute) Chest pain (Acute) Adverse drug reaction (Acute) Weakness (Acute) H/O lymph node biopsy (10/19/24) Right Cervical Lymph Node Excisional Biopsy(Right) - Joe Cat, Neuropathic pain COVID-19 (Acute) COVID-19 virus infection Fatigue Neck mass DRUJ (distal radioulnar joint) arthrosis, primary Abnormal chest CT Ex-smoker Exertional shortness of breath Multiple pulmonary nodules Ciprofloxacin adverse reaction Osteoarthritis of right shoulder Hematuria Vaginal odor Routine gynecological examination Chest pain (Acute) Rash Spinal stenosis of lumbar region Opioid dependence Cervicogenic headache Myofascial pain Insomnia Headache (Acute) Calf pain S/P PICC central line placement Right arm pain Anxiety Diffuse large B cell lymphoma H/O heart artery stent 07/02/21 Jaw pain Constipation Right shoulder pain Peripheral neuropathy Acute UTI Incomplete emptying of bladder Decreased urination Routine health maintenance NSTEMI (non-ST elevated myocardial infarction) 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 B-cell lymphoma (Acute) Mass of right side of neck Localized swelling, mass or lump of neck HTN (hypertension), benign Toe pain, chronic (Chronic) Encounter for examination following treatment at hospital (Acute) Heart disease Glossitis (Acute) caused by cinnamon Esophageal dysphagia Weight loss (Acute) Sleep disturbance (Chronic) Chronic pain (Chronic) Left wrist tendonitis Left knee DJD Left wrist pain Fall (Acute) Back pain (Chronic) Encounter for pre-operative examination GERD (gastroesophageal reflux disease) (Chronic) Bundle branch block, left Chronic dating back to at least 05/2017 stress test Hyperlipidemia (Chronic) Retrosternal chest pain (Acute) Headache (Acute) Benign positional vertigo (Acute) Medical History History of COVID-19 09/21/24--fatigue, sore throat, headache/neck pain, sweats--still having residual neck pain Neck mass Spinal stenosis of lumbar region Peripheral neuropathy Hx of non-ST elevation myocardial infarction (NSTEMI) (06/2021) Multiple pulmonary nodules f/u Dr Sharma Hyperlipidemia HTN (hypertension) Heart disease Hx of glossitis caused by cinnamon GERD (gastroesophageal reflux disease) Exertional shortness of breath states "very mild" Esophageal dysphagia denies Chronic pain Hx of chest pain chronic, intermittent; last episode 04/02/24, seen in [place] ER, stress test 06/2024 "no findings" Left bundle branch block (LBBB) chronic dating back to 2013 per pt - follows w/ Dr Whitten History of cervical fracture C2 >>~2001- full ROM Benign positional vertigo intermittent, no issues recently History of B-cell lymphoma (2020) Anxiety Hypokalemia hx Nerve pain Left sided Osteoporosis Degenerative disc disease Osteoarthritis Surgical History History of dilatation and curettage S/P PICC central line placement h/o- removal H/O heart artery stent following n-stemi- 07/02/21; f/u dr. whitten, [facility] [place] History of surgery Deep excision of right cervical lymph nodes by Dr. Guajardo on 05/25/21 History of bilateral cataract extraction History of colonoscopy with polypectomy History of bilateral tubal ligation History of carpal tunnel release Left History of esophagogastroduodenoscopy (EGD) Family History Father , 57yo Colorectal cancer Mother , 76yo Myocardial infarction Colorectal cancer Hearing loss Grandmother (Paternal) Stroke Sister Stroke Factor V Leiden mutation Daughter Family history of reaction to anesthesia PONV Brother Myocardial infarction Sister Medical history unknown Son No problems noted. Son No problems noted. Son Ulcerative colitis Daughter No problems noted. Daughter No problems noted. Other Heart disease Denies family history of Ovarian cancer Prostate cancer Breast cancer Social History (Updated 04/24/25 @ 18:17 by Aashish Randolph MD) Smoking Status: Former smoker Tobacco Type: Cigarettes Age Started Using Tobacco: 16; Age Quit Using Tobacco: 20; packs per day: 2; Cigarettes Per Day: 2 PPD x 10 yrs;Quit 1972; Second Hand Exposure: Yes (hx); Do You Dip or Chew Tobacco: No; Hx Alcohol Use: No Hx Substance Use: No Preferred Language: [place] Communication Ability: Effective Visual Impairment: Limited Hearing Ability: Normal Perioperative Nurse Required: No Beliefs That Will Affect Care: None marital status: / Current Living Situation: Alone Current Living Situation Comment: lives in apt complex current occupational status: retired current occupation: Many occupations How many Children do You have: 5 Feels Safe at Home: Yes Childhood Exposure to Second-Hand Smoke: Yes Diet: regular caffeine: Yes (1 cup/day) during the past year weight has: remained stable Dental Care, Regularly: Yes Physical Activity Frequency: Daily Physical Activity Frequency Comment: Daily housework, laundry, and minimal walking Seatbelt Use: always Sunscreen Use: No Do you think of yourself as: straight/heterosexual Sexual Activity: has been sexually active, but not for at least 12 months Gender Identity: Female Assistive Devices: None Review of Systems Review of Systems: See HPI above Physical Exam Physical Exam: General: no acute distress; pleasant affect; non-toxic appearing; frail appearing; cooperative; SpO2 96% on RA HEENT: normocephalic, atraumatic; no scleral icterus; PERRLA w/ EOMs intact; vision and hearing grossly intact Neck: supple; no lymphadenopathy; trachea midline Skin: warm, dry without signs of tenting; no cyanosis; no rashes, bruising or erythema noted; patient does have a cut/lesion on her left lateral forearm CV: chest wall NTP; no rashes appreciated the chest wall; RRR; S1/S2 normal; no murmurs/rubs/gallops; pulses intact and symmetric at radial, DP, and PT Lungs: no acute respiratory distress; symmetrical chest wall expansion; clear breath sounds across all lung bruno w/o adventitious sounds; no wheezing ABD: Soft, NTP; BS present; no rebound/guarding; no distention MSK: no tics or fasciculations; no edema noted in the LEs b/l, nonerythematous Neuro: A&Ox3; normal mood and affect; fluent speech; no focal deficits; patient reports sensation is intact symmetric in lower extremities bilaterally Results & Data Results & Data Vital Signs (Past 12 Hours) Vital Signs Temp Pulse Resp BP Pulse Ox O2 Del Method O2 Flow Rate 04/24/25 16:31 77 19 105/72 96 04/24/25 16:00 65 17 104/70 93 04/24/25 16:00 67 19 104/70 92 04/24/25 16:00 67 04/24/25 15:06 82 14 148/96 H 94 Room Air 04/24/25 15:03 84 16 95 Room Air 04/24/25 15:03 95 Room Air 0 04/24/25 15:00 88 21 148/96 H 94 04/24/25 14:47 36.2 C L 102 H 16 158/100 H 96 Room Air Laboratory Results Abnormal lab results 04/24/25 Range/Units 15:03 Glucose 121 H (70-99(Fasting)) mg/dl Diagnostic Findings Chest X-Ray 04/24/25 14:56 Exam: Chest one view portable. Reason for exam: Chest pain Previous study: 01/17/2025. FINDINGS: Cardiac size remains normal. Mild linear fibrosis in the lingula. Lungs otherwise clear of active infiltrate, collapse or edema. IMPRESSION: Stable appearance without acute disease seen at this time. Electronically signed by Ghulam Antonoi 04-24-2025 3:35 PM ECG Additional Comments: ECG revealed NSR at 92 bpm; QTc 477; known left bundle branch block present on prior EKGs Code Status & VTE Plan Code Status DNR/DNI VTE Prophylaxis Plan VTE Prophylaxis will be ordered: Yes PG Care Time/CCT Total # of Minutes Spent Total Time Spent with Patient: Total time spent is greater than 50% in coordination of care (as documented) at patient's floor/unit and/or counseling patient: Coding [place] [address] INT INP/OBS CARE 3/75MIN Patient Type Established History Comprehensive Exam Comprehensive Medical Decision Making High Complexity Diagnoses Chest pain R07.9 Diffuse large B-cell lymphoma, unspecified body region C83.30 Lymphoma site: unspecified region H/O heart artery stent Z95.5 (2) Diffuse large B cell lymphoma Lymphoma site: unspecified region Qualified Code(s): C83.30 - Diffuse large B-cell lymphoma, unspecified site
[2025-04-24] MEDS: NITROGLYCERIN 2% OINTMENT 30GM TUBE EXT ONE (19:45)
[2025-04-24 19:48] VITALS: RESP 16
[2025-04-24] MEDS ORDERED: MECLIZINE HCL 25 MG TAB PO PRN (21:01)
[2025-04-24] MEDS ORDERED: CYCLOBENZAPRINE HCL 10 MG TAB PO PRN (21:01)
[2025-04-24] MEDS ORDERED: ONDANSETRON INJ 2 MG/ML 2 ML VIAL IV PRN (21:01)
[2025-04-24] MEDS ORDERED: EPINEPHrine INJ 1 MG/ML AMP IM PRN (21:13)
[2025-04-24] MEDS: VALSARTAN/SACUBITRIL 26/24MG TAB PO SCH (21:43)
[2025-04-24] MEDS: LORazepam 0.5 MG TAB PO PRN (21:43)
[2025-04-24] MEDS: ENOXAPARIN INJ 40 MG/0.4 ML SYR SQ SCH (21:43)
[2025-04-25] MEDS: LACTATED RINGER'S 500 ML IV ONE (02:59)
[2025-04-25] MEDS: ACETAMINOPHEN 325 MG TAB PO PRN (04:16)
[2025-04-25 07:32] LABS: Anion Gap 6.0 (3-11); Blood Urea Nitrogen 16.0 mg/dl (6-23); Calcium 8.3 mg/dl (8.6-10.3); Carbon Dioxide 26.0 mmol/L (21-32); Chloride 110.0 mmol/L (98-107); Creatinine Clr Calc Pharmacy 53.2 ml/min; Glucose 99.0 mg/dl (70-99(Fasting)); Magnesium 2.1 mg/dl (1.7-2.4); Potassium 3.4 mmol/L (3.5-5.1); Sodium 142.0 mmol/L (136-145)
[2025-04-25] MEDS: POTASSIUM CHLORIDE 10 MEQ TABCR PO STA (12:04)
[2025-04-25] MEDS: ASPIRIN 81 MG ECTAB PO SCH (12:05)
[2025-04-25] MEDS: ROSUVASTATIN CALCIUM 10 MG TAB PO SCH (12:05)
[2025-04-25] MEDS: FUROSEMIDE 20 MG TAB PO SCH (12:05)
[2025-04-25] MEDS: MAGNESIUM OXIDE 400 MG TAB PO SCH (12:06)
[2025-04-25] MEDS: REGADENOSON 0.4 MG/5 ML SYR IV ONE (12:07)
[2025-04-25] MEDS: POTASSIUM CHLORIDE CRTAB 20 MEQ TABCR PO SCH (12:13)
--- NOTE | 2025-04-25 14:00 | Electrocardiogram Report ---
Test Reason : Blood Pressure : */* mmHG Vent. Rate : 92 BPM Atrial Rate : 92 BPM P-R Int : 142 ms QRS Dur : 126 ms QT Int : 386 ms P-R-T Axes : 36 -48 121 degrees QTcB Int : 477 ms Normal sinus rhythm Possible Left atrial enlargement Left axis deviation Left bundle branch block Abnormal ECG When compared with ECG of 17-Jan-2025 14:32, HR has decreased Confirmed by Gilberto Dorantes ([id number]) on 04/25/2025 2:00:37 PM Referred By: REFERRED SELF Confirmed By: Gilberto Dorantes
--- NOTE | 2025-04-25 14:29 | Myocardial Perfusion Study ---
Date of Service April 25, 2025 Myocardial Perfusion Study [facility] Myocardial Perfusion Study Report LEXISCAN STRESS MYOCARDIAL PERFUSION IMAGING STUDY Indication: Chest pain Brief description: Rest portion-at 9:15 AM the patient was injected with 10.9 mCi Tc 99m Cardiolite IV. 1 hour following injection, myocardial perfusion imaging was performed in multiple projections. Stress portion-baseline heart rate, blood pressure, and EKG were obtained. The same parameters were monitored continuously for 3 minutes infusion and 3 minutes recovery. They were intermittently recorded. Patient was infused with 0.4 mg Lexiscan IV followed immediately by injection of 31.7 mCi Tc 99m Cardiolite IV. 30 minutes following injection, myocardial perfusion imaging was performed in multiple projections similar to those utilized for the rest portion. Patient felt poorly throughout the infusion but did not feel chest pain. Hemodynamic and electrocardiographic findings: 1. Resting heart rate was 72 bpm and faith to a maximum of 126 bpm with Lexiscan infusion. 2. Resting blood pressure was 138/76 mmHg and dropped to 129/75 mmHg with Lexiscan infusion. 3. Resting EKG showed sinus rhythm and left bundle branch block. There were no diagnostic ST segment or T wave changes with Lexiscan infusion. There was a Lexiscan induced tachycardia which appeared to be sinus. Myocardial perfusion imaging findings: 1. Raw data analysis demonstrates dense breast attenuation shadow extending across the chest towards the axilla. This is an adequate quality study for interpretation. 2. Gated myocardial perfusion imaging demonstrates normal size LV, EF normal calculated at 69%, and abnormal septal wall motion consistent with left bundle branch block. 3. There is a large in size (17%), moderate intensity, almost entirely fixed MPI defect involving the mid to distal septal, entire apical, and mid to distal inferolateral myocardium. These findings are consistent with prior myocardial infarction with minimal to mild fady-infarct ischemia and likely also some contribution of breast attenuation artifact. 4. Study is severely abnormal. Low risk ischemia noted. No prior study for direct comparison. Recommend discuss findings with cardiology. [facility] [place] Indication for Procedure (1) Unstable angina: (2) Complete left bundle branch block: Procedure Code Procedure 1: Myocardial Perfusion Codes: 79518 Cardiovascular Stress Test, multiple Procedure 2: Myocardial Perfusion Codes: 95739 Cardiovascular Stress Test, supervision only Procedure 3: Myocardial Perfusion Codes: 21611 Cardiovascular Stress Test, interpretation and report
[2025-04-25 16:10] VITALS: TEMP 97.7; O2SAT 96
[2025-04-25] MEDS: SUCRALFATE 1 GM TAB PO STA (16:40)
--- NOTE | 2025-04-25 16:44 | Discharge Summary ---
Discharge Summary Date of Service April 25, 2025 Principal Dx & Hospital Course #1 = Principal Diagnosis (1) Chest pain: (2) Diffuse large B cell lymphoma: (3) H/O heart artery stent: Plan This patient is a 79-year-old female with PMH of CAD s/p ASH, LBBB, and NSTEMI who presented on 04/24 for acute onset of chest pain at rest. Patient took aspirin 81 mg x 4 prior to arrival. #Chest pain | ?Unstable angina Troponin WNL x 2 EKG without acute ischemic changes; history of LBBB Heart score: 4 (based on age and risk factors) Touched base with [facility] Nuclear stress test ordered for the morning of 04/25 N.p.o. at midnight While patient reports she is "chest pain free" at time of admission, endorses "aching" under the left breast Trial of nitropast 0.5 inch x 1 Continuous telemetry monitoring #History of NSTEMI Presenting with classic angina on 06/13/2021 Catheterization found acute 100% occlusion of the mid circumflex coronary artery Patient underwent successful PCI s/p ASH #B-cell lymphoma | cancer-related pain Diagnosis in 2021; received chemotherapy at [facility] including doxorubicin Unfortunately, patient had recurrence of B-cell lymphoma in November 2024 Allergic to most chemotherapy medications; elected not to undergo treatment While patient denies SOB, she was mildly tachycardic on arrival around 102bpm Higher risk for PE given cancer / not on anticoagulation D-dimer ordered, pending Signed out to overnight team Continue fentanyl patches; replace every 3 days (verified in PDMP) Oxycodone 5 mg BID PRN for cancer-related pain (verified in PDMP) #HFpEF Last echocardiogram on 01/29/2024 revealed LVEF at 55 to 59% Strict I&O monitoring Daily weights Heart healthy, low-sodium diet Continue Lasix, Entresto, and K supplementation #GERD Continue PPI #Anxiety Lorazepam 0.5 mg p.o. BID PRN Hold clonazepam 0.5 mg HS PRN so as not to double up Also, last Rx in November 2024 #HLD Continue rosuvastatin Disposition: Obs - Admit to [facility] telemetry DVT PPx: Lovenox 40mg SQ q24h Admission HPI Per Admitting Provider Mrs. Hagan is an 79-year-old female with PMH of NSTEMI, CAD s/p ASH, LBBB, GERD, HTN, B-cell lymphoma, and neuropathic pain. She presented on 04/24 for acute onset of chest pain. Patient was sitting and watching TV around dinnertime, when she suddenly felt sharp, substernal chest pain. She rated the pain 8/10 at worst. She got up to use the bathroom, and her "ears and legs" started to hurt. The pain was constant, so she took 4 baby aspirin. The chest pain then subsided within approximately 30 minutes. Pain radiated up to her neck bilaterally. No radiation down the arms. Patient reports this felt like prior episodes of ACS. She does have a history of acid reflux, but reports this does not feel like prior episodes of reflux. Patient only had an egg sandwich this morning for breakfast around 11 AM; no other food before dinnertime. Patient reports she is chest pain free at time admission, but does endorse mild rib pain beneath the left breast. Patient took her regular morning medicine today. The only recent change in medications is that they increased her statin a couple weeks ago, and she went back to taking her regular dose last Friday as it was hurting her legs too much. No sick contacts to her knowledge. No PMH of stroke or T2DM. Patient does have a history of non-Hodgkin's lymphoma, and was told in November that she would have around 6 months to live. Patient elected to not undergo chemotherapy treatments, as she was "allergic" to most. She is not currently on any cancer treatments. No recent injuries to her chest wall or muscle strains. No rashes or bruising on the chest wall. No history of shingles. Patient denies smoking, tobacco use, or recent alcohol use. Juliocesar miramontes's vitals are stable at time admission. ED course: ROS: Patient endorses LANDIN upon waking this morning, lightheadedness, chest pain (resolved), residual left sided chest wall soreness, Patient denies fever, chills, night-sweats, changes in vision, chest palpitations, pleuritic CP, SOB, cough, hemoptysis, abdominal pain, N/V/D, burning with urination, blood in the urine/stool, or numbness/tingling in the arms or legs. Discharge Plan Discharge Items Patient Disposition: Home - Self-Care Reason For Visit: CHEST PAIN Discharge Diagnosis: 1. chest pain, no evidence of heart attack; stress test negative -pain suspected to be due to reflux disease/hiatal hernia/stomach 2. hiatal hernia 3. GERD 4. coronary artery disease with prior heart attack/stent placement 5. lymphoma Condition on Discharge: Good Activity: Resume your previous activity Non-emergency contact: Primary Care Provider, Specialist and Rubber Flap Tuber Machine Operator Call non-emergency contact if: you have any medication questions, your symptoms worsen, your pain is not controlled, your pain is worsening, your pain is unusual for you and your pain is concerning for you Follow-up/Referrals: Corrie Camilo PA-C [Physician Drupal Developer] - 04/28/25 1:30 pm Mitra Santizo MD [Primary Care Provider] - 05/09/25 11:30 am Flaco Gifford DO [Rubber Flap Tuber Machine Operator] - (Dr Gifford's office will be contacting you for a follow-up appointment ) Diet: Heart Healthy Addtl Attending Provider Instructions: Ms Hagan, You were hospitalized due to having chest pain. The symptoms you had had were reminiscent of your pain that occurred with your heart attack. Thus, we performed multiple blood tests for your heart to exclude a new heart attack. The blood work for the heart - called troponins - were normal. Telemetry heart monitoring was normal. We did a screening blood test for blood clots of the lungs - this returned negative/normal. Chest x-ray was normal. On 04/25 you underwent a nuclear stress test. This showed the area of your previous heart attack. The study, however, did not appear to show any new areas of poor blood flow/blockages. We call this a "low risk study." The stress test results - taken in conjunction with the normal troponins, normal telemetry, etc. - would suggest that your chest pain yesterday was not due to your heart. Other possibilities for your pain including reflux disease/gastritis (irritation of your stomach), musculoskeletal pain, etc. In the event your pain was due to spasm of your esophagus and/or gastritis and/or other stomach issues please do the following - 1. follow reflux precautions; see handouts on lifestyle changes, dietary recommendations, etc. 2. continue your Dexilant (dexlansoprazole) 60mg once daily every morning on empty stomach. 3. ADD carafate (sucralfate) 1000mg [1 gram] about 30 minutes prior to breakfast, 30 minutes prior to lunch, and 30 minutes prior to your evening meal; new prescription sent to [facility] for you. I would take the sucralfate scheduled until you see gastroenterology. If you ever have reflux/heartburn/stomach symptoms close to bedtime you can always take a 4th tablet at bedtime. 4. follow-up with [facility] as scheduled for recheck of your symptoms. We also sent an appointment request to Dr Gifford's office for a follow-up cardiology appointment; they should be contacting you with appointment details. Return to [facility] if - -you have recurrent chest pain symptoms despite taking your Dexilant & sucralfate -you have vomiting -you are short of breath -you have severe abdominal pain -you have any concerns your pains could be another heart attack -any other concerns It was our pleasure to care for you! Pending Studies at Discharge: No Stand-Alone Forms: My [facility] [address], Smoking Cessation Medications and DC Order Prescriptions: New sucralfate [Carafate] 1 gram tablet 1 g PO AC Qty: 60 1RF Rx Instructions: take about 30 minutes prior to meals. Continued aspirin 81 mg tablet,chewable 81 mg PO QAM clonazepam [Klonopin] 0.5 mg tablet 0.5 mg PO HS PRN (Reason: Sleep) Qty: 30 0RF (DME) Wheeled Walker [facility] See Rx Instructions .Route Qty: 1 0RF Rx Instructions: WHEELED WALKER WITH SEAT fentanyl 12 mcg/hr patch 72 hour 12 mcg transdermal [id number] Qty: 10 0RF Entresto 24-26 mg tablet 1 tab PO BID Qty: 180 1RF oxycodone-acetaminophen 5-325 mg tablet 5 - 325 tab PO 3XD PRN (Reason: Pain) Qty: 90 0RF lorazepam [Ativan] 0.5 mg tablet 0.5 mg PO BID PRN (Reason: anxiety) Qty: 45 2RF epinephrine [EpiPen] 0.3 mg/0.3 mL auto-injector 0.3 mg subcut UD PRN (Reason: Anaphylaxis) Qty: 2 2RF cyclobenzaprine 10 mg tablet 10 mg PO TID PRN (Reason: muscle spasm) Qty: 14 0RF meclizine [Motion Sickness (meclizine)] 25 mg tablet 25 mg PO TID PRN (Reason: Vertigo) Qty: 30 0RF potassium chloride 20 mEq tablet,ER particles/crystals 20 meq PO QAM furosemide 20 mg tablet 20 mg PO QAM magnesium oxide 500 mg tablet 500 mg PO QAM dexlansoprazole 60 mg capsule,biphase delayed releas 60 mg PO QAM Rx Instructions: TAKE 1 CAPSULE BY MOUTH EVERY DAY IN THE MORNING rosuvastatin 10 mg tablet 10 mg PO QAM Discharge Orders: Discharge Order (Routine); Ordered 04/25/25 Ordered By: Aashish Rubio/Other Patient Handouts: What Is a Hiatal Hernia?, GERD Lifestyle Changes, Tips to Control Acid Reflux Admission Data Admit Date/Time: 04/24/25 18:43 Attending Provider: Aashish Randolph Admit Provider: Aashish Randolph Primary Care Provider: Mitra Santizo Other Providers: Aashish Randolph Hospital Stay Data Consultations 04/24/25 18:12 ED Decision to Admit Stat Pending Results Patient Have Any Pending Studies at Discharge: No Discharge Instructions Given to Patient (Per Discharging Provider) Ms Hagan, Jareth were hospitalized due to having chest pain. The symptoms you had had were reminiscent of your pain that occurred with your heart attack. Thus, we performed multiple blood tests for your heart to exclude a new heart attack. The blood work for the heart - called troponins - were normal. Telemetry heart monitoring was normal. We did a screening blood test for blood clots of the lungs - this returned negative/normal. Chest x-ray was normal. On 04/25 you underwent a nuclear stress test. This showed the area of your previous heart attack. The study, however, did not appear to show any new areas of poor blood flow/blockages. We call this a "low risk study." The stress test results - taken in conjunction with the normal troponins, normal telemetry, etc. - would suggest that your chest pain yesterday was not due to your heart. Other possibilities for your pain including reflux disease/gastritis (irritation of your stomach), musculoskeletal pain, etc. In the event your pain was due to spasm of your esophagus and/or gastritis and/or other stomach issues please do the following - 1. follow reflux precautions; see handouts on lifestyle changes, dietary recommendations, etc. 2. continue your Dexilant (dexlansoprazole) 60mg once daily every morning on empty stomach. 3. ADD carafate (sucralfate) 1000mg [1 gram] about 30 minutes prior to breakfast, 30 minutes prior to lunch, and 30 minutes prior to your evening meal; new prescription sent to [facility] for you. I would take the sucralfate scheduled until you see gastroenterology. If you ever have reflux/heartburn/stomach symptoms close to bedtime you can always take a 4th tablet at bedtime. 4. follow-up with [facility] as scheduled for recheck of your symptoms. We also sent an appointment request to Dr Gifford's office for a follow-up cardiology appointment; they should be contacting you with appointment details. Return to [facility] if - -you have recurrent chest pain symptoms despite taking your Dexilant & sucralfate -you have vomiting -you are short of breath -you have severe abdominal pain -you have any concerns your pains could be another heart attack -any other concerns It was our pleasure to care for you! Coding Diagnoses Chest pain R07.9 Diffuse large B-cell lymphoma, unspecified body region C83.30 Lymphoma site: unspecified region H/O heart artery stent Z95.5
[2025-04-25 16:48] VITALS: BP 105/72; PULSE 97
== END 2025-04-25 17:10 | disposition home or self-care (01) ==
LOC: ED 14:45 → 2N 14:45